=== PATIENT | female | born 1940 | race Caucasian/White ===

== ENCOUNTER → 2017-01-04 | Outpatient (CLI) | payer MEDICARE, MEDICAID ==
[~2017-01-04] MED LIST: ASPI325T33 PO; DITR15TA PO; HYDR-3533 PO; LYRI50CA PO; PAXI20TA PO; SIMV10TA PO; WELC625T2 PO; [UNRECOGNIZED DRUG - CODE] PO
[2017-01-04 12:17] LABS: AUTOMATED NEUTROPHIL # 4.2 TH/MM3 (1.8-7.7); BASOPHIL # 0.1 TH/MM3 (0-0.2); BASOPHIL % 1.2 % (0.0-2.0); EOSINOPHIL # 0.8 TH/MM3 (0-0.4); EOSINOPHIL % 9.9 % (0.0-4.0); HEMATOCRIT 44.2 % (35.0-46.0); HEMO FLAGS DIFF FINAL; LYMPH % 29.5 % (9.0-44.0); LYMPHOCYTE # 2.3 TH/MM3 (1.0-4.8); MEAN CELL VOLUME 89.6 FL (80.0-100.0); MEAN CORPUSCULAR HEMOGLOBIN 28.9 PG (27.0-34.0); MEAN CORPUSCULAR HGB CONC 32.3 % (32.0-36.0); NEUT % 52.4 % (16.0-70.0); PLATELET COUNT 318 TH/MM3 (150-450); RED BLOOD COUNT 4.93 MIL/MM3 (4.00-5.30); RED CELL DISTRIBUTION WIDTH 13.8 % (11.6-17.2)
[2017-01-04 12:35] LABS: ANION GAP 8 MEQ/L (5-15); AST (GOT) 39 U/L (15-37); BICARBONATE 21.8 MEQ/L (21.0-32.0); BLOOD UREA NITROGEN 15 MG/DL (7-18); CHLORIDE 110 MEQ/L (98-107); GLOMERULAR FILTRATION RATE 57 ML/MIN (>89); GLUCOSE,FASTING 162 MG/DL (74-99); POTASSIUM 4.2 MEQ/L (3.5-5.1); SODIUM (NA) 140 MEQ/L (136-145)
[2017-01-04 12:43] LABS: BACTERIA, URINE RARE /hpf; BLOOD, URINE NEG (NEG); COMMENT (UR) CULTURE INDICATED; CULTURE IF INDICATED CULTURE INDICATED; GLUCOSE,URINE NEG (NEG); KETONE, URINE NEG (NEG); MUCUS URINE FEW /lpf (OCC); NITRITE,URINE NEG (NEG); PH, URINE 5.5 (5.0-8.5); SQUAMOUS EPITHELIAL CELL URINE 5 /hpf (0-5); TRANSITIONAL EPI CELLS, URINE <1 /hpf; URINE COLOR YELLOW (YELLW/STRAW)
[2017-01-04 12:46] LABS: ALKALINE PHOSPHATASE 93 U/L (45-117); ALT (GPT) 35 U/L (10-53); HDL CHOLESTEROL 34.1 MG/DL (40.0-60.0); LDL CHOLESTEROL 132 MG/DL (0-99); TOTAL BILIRUBIN ADULT 0.2 MG/DL (0.2-1.0)
[2017-01-04 17:31] LABS: HEMOGLOBIN A1a 1.2 %; HEMOGLOBIN A1b 2.1 %; HEMOGLOBIN LA1C 2.3 %; HEMOGLOBIN P3 4.2 %
== END ==
LOC: CLAB 11:42
PROVIDERS: ATTEND Family Medicine
DX: E11.9 Type 2 diabetes mellitus without complications (principal); E78.5 Hyperlipidemia, unspecified; I10 Essential (primary) hypertension; R32 Unspecified urinary incontinence; E55.9 Vitamin D deficiency, unspecified; F41.9 Anxiety disorder, unspecified
CPT/HCPCS: 36415; 80053; 80061; 81001; 82306; 83036; 84443; 85025; 87086

== ENCOUNTER → 2017-11-14 | Outpatient (CLI) | payer MEDICARE, MEDICAID ==
[~2017-11-14] MED LIST changes: +COLE625 PO; -WELC625T2 PO
[2017-11-14 11:17] LABS: AUTOMATED NEUTROPHIL # 4.2 TH/MM3 (1.8-7.7); BASOPHIL # 0.1 TH/MM3 (0-0.2); BASOPHIL % 1.1 % (0.0-2.0); EOSINOPHIL # 0.4 TH/MM3 (0-0.4); EOSINOPHIL % 4.6 % (0.0-4.0); HEMATOCRIT 45.6 % (35.0-46.0); HEMOGLOBIN 14.7 GM/DL (11.6-15.3); LYMPH % 32.9 % (9.0-44.0); LYMPHOCYTE # 2.6 TH/MM3 (1.0-4.8); MEAN CELL VOLUME 91.8 FL (80.0-100.0); MEAN CORPUSCULAR HEMOGLOBIN 29.7 PG (27.0-34.0); MEAN CORPUSCULAR HGB CONC 32.3 % (32.0-36.0); MEAN PLATELET VOLUME 7.9 FL (7.0-11.0); MONO % 8.9 % (0.0-8.0); MONOCYTE # 0.7 TH/MM3 (0-0.9); NEUT % 52.5 % (16.0-70.0); PLATELET COUNT 378 TH/MM3 (150-450); RED BLOOD COUNT 4.96 MIL/MM3 (4.00-5.30); RED CELL DISTRIBUTION WIDTH 13.5 % (11.6-17.2)
[2017-11-14 11:40] LABS: ALBUMIN 3.4 GM/DL (3.4-5.0); ALT (GPT) 45 U/L (10-53); AST (GOT) 56 U/L (15-37); BICARBONATE 21.1 MEQ/L (21.0-32.0); BLOOD UREA NITROGEN 14 MG/DL (7-18); CHLORIDE 111 MEQ/L (98-107); CHOLESTEROL 146 MG/DL (120-200); CREATININE 1.11 MG/DL (0.50-1.00); GLOMERULAR FILTRATION RATE 48 ML/MIN (>89); GLUCOSE,FASTING 152 MG/DL (74-99); SODIUM (NA) 143 MEQ/L (136-145)
[2017-11-14 12:05] LABS: ALKALINE PHOSPHATASE 80 U/L (45-117); C-REACTIVE PROTEIN 0.54 MG/DL (0.00-0.30); CHOLESTEROL/ HDL RATIO 4.12 RATIO; HDL CHOLESTEROL 35.4 MG/DL (40.0-60.0); LDL CHOLESTEROL 76 MG/DL (0-99); TOTAL BILIRUBIN ADULT 0.3 MG/DL (0.2-1.0); TOTAL PROTEIN 7.5 GM/DL (6.4-8.2); TRIGLYCERIDES 172 MG/DL (42-150)
[2017-11-14 12:07] LABS: BILIRUBIN, URINE NEG (NEG); BLOOD, URINE NEG (NEG); GLUCOSE,URINE 1000 mg/dL (NEG); KETONE, URINE NEG (NEG); MUCUS URINE FEW /lpf (OCC); NITRITE,URINE NEG (NEG); PH, URINE 5.5 (5.0-8.5); RENAL EPITHELIAL CELLS <1 /hpf; SQUAMOUS EPITHELIAL CELL URINE 3 /hpf (0-5); URINE COLOR YELLOW (YELLW/STRAW); URINE LEUKOCYTE ESTERASE SMALL (NEG)
== END ==
LOC: CLAB 10:51
PROVIDERS: ATTEND Family Medicine
DX: E11.9 Type 2 diabetes mellitus without complications (principal); E78.5 Hyperlipidemia, unspecified; M25.562 Pain in left knee
CPT/HCPCS: 36415; 80053; 80061; 81001; 82043; 82550; 82607; 84443; 84550; 85025; 86140

== ENCOUNTER 2018-03-24 08:49 | Inpatient (IN) ==
[2018-03-24 10:05] LABS: Baso # (Auto) 0.1 th/mm3 (0.0-0.2); Eos # (Auto) 0.3 th/mm3 (0.0-0.4); Eos % (Auto) 3.6 % (0.0-4.0); Hematocrit 44.3 % (35.0-46.0); Hemoglobin 14.3 gm/dL (11.6-15.3); Lymph # (Auto) 2.3 th/mm3 (1.0-4.8); Lymph % (Auto) 23.5 % (9.0-44.0); Mean Corpuscular HGB Conc 32.3 % (32.0-36.0); Mean Corpuscular Hemoglobin 29.9 pg (27.0-34.0); Mean Corpuscular Volume 92.5 fL (80.0-100.0); Mean Platelet Volume 7.9 fL (7.0-11.0); Mono # (Auto) 0.9 th/mm3 (0.0-0.9); Mono % (Auto) 9.1 % (0.0-8.0); Neut # (Auto) 6.1 th/mm3 (1.8-7.7); Neut % (Auto) 62.8 % (16.0-70.0); Platelet Count 323 th/mm3 (150-450); Red Blood Count 4.79 mil/mm3 (4.00-5.30); Red Cell Distribution Width 14.2 % (11.6-17.2); White Blood Count 9.7 th/mm3 (4.0-11.0)
--- NOTE | 2018-03-24 10:10 | XR ---
EXAM DATE: 03/24/2018 9:58 AM EDT AGE/SEX: 78 years / Female INDICATIONS: Right sided chest pain. CLINICAL DATA: This is the patient's initial encounter. Patient reports that signs and symptoms have been present for 1 day and indicates a pain score of 9/10. MEDICAL/SURGICAL HISTORY: Cardiovascular disease. Bilat Breast Ca, Uterine Ca CABG. Appendec umang, Tonsillectomy, Gallbladder, Bilat Mastectomy, Salivary Gland, Ear Drum Graft COMPARISON: [facility], XR CHEST PA AND LAT, 09/25/2016. . FINDINGS: Sternal wires from previous bypass noted. Surgical clips right axilla. Lungs clear. The heart and pul monary vascularity are normal. . The portion of the bony skeleton visualized is unremarkable. . CONCLUSION: Negative chest. History of bypass. Electronically signed by: Vick Lee MD 03/24/2018 10:09 AM EDT
[2018-03-24 10:17] LABS: Albumin 2.9 g/dL (3.4-5.0); Anion Gap 11 meq/L (5-15); Aspartate Aminotransferase 29 U/L (15-37); Blood Urea Nitrogen 21 mg/dL (7-18); Calcium 8.6 mg/dL (8.5-10.1); Carbon Dioxide 19.6 meq/L (21.0-32.0); Chloride 110 meq/L (98-107); Glomerular Filtration Rate 52 mL/min (>89); Glucose,Random 129 mg/dL (74-106); Potassium 4.3 meq/L (3.5-5.1); Sodium 141 meq/L (136-145)
[2018-03-24 10:18] LABS: Alanine Aminotransferase 21 U/L (10-53)
[2018-03-24 10:22] LABS: Alkaline Phosphatase 70 U/L (45-117); Total Protein 6.9 g/dL (6.4-8.2)
[2018-03-24 10:30] LABS: Troponin I 0.82 ng/mL (0.02-0.05)
[2018-03-24] MEDS ORDERED: Nitroglycerin Drip Premix 50 MG/250 ML BOTTLE IV.CONT PRN (10:50)
--- NOTE | 2018-03-24 11:00 | ED ---
HPI General Chief complaint: Neck Pain/Injury Stated complaint: Shoulder pain Time Seen by Provider: 03/24/18 08:59 History of Present Illness HPI narrative: Patient is a 78-year-old female presents emergency department for evaluation of chest pain on the right side for the past 2 weeks. Patient states she presented this morning he is gotten worse. She states is typically worse when she lies down flat, radiates to her right neck, no radiation to back , no altered mental status, no headache. States the pain is intermittent, sometimes severe, not associate with any exertion. Associated signs symptoms in context as above. Related Data Home Medications Medication Instructions Recorded Confirmed Toviaz 8 mg PO DAILY 03/24/18 03/24/18 losartan 25 mg PO DAILY 03/24/18 03/24/18 paroxetine HCl 10 mg PO DAILY 03/24/18 03/24/18 simvastatin 40 mg PO QPM 03/24/18 03/24/18 Allergies Allergy/AdvReac Type Severity Reaction Status Date / Time No Known Allergies Allergy Unverified 03/24/18 09:06 Review of Systems ROS: all other systems reviewed are negative [facility] Medical History Medical History Breast cancer (Acute) Carotid artery disease (Acute) Diabetes (Acute) History of hysterectomy (Acute) Hyperlipemia (Acute) Hypertension (Acute) Uterine cancer (Acute) Social History Social History Substance History: No History of Abuse Second Hand Smoke Exposure: No Smoking Status: Former smoker Tobacco Type: Cigarettes How Often Do You Have a Drink Containing Alcohol: Never Recent Travel in [facility] within the Last 8 Weeks: No Recent Out of Country Travel within the Last 8 Weeks: No Immunization History Tetanus Immunization: >5 Years Hx Influenza Vaccine This Season: Yes Exam Narrative Exam Narrative: GENERAL: Well-developed well-nourished pleasant female in no obvious distress. she sleeping soundly on my initial encounter but aroused easily to voice. SKIN: Focused skin assessment warm/dry. HEAD: Atraumatic. Normocephalic. EYES: Pupils equal and round. No scleral icterus. No injection or drainage. ENT: No nasal bleeding or discharge. Mucous membranes pink and moist. NECK: Trachea midline. No JVD. CARDIOVASCULAR: Regular rate and rhythm. No murmur appreciated. No carotid bruits, no murmurs gallops or rubs, 2+ bilateral equal pulses in all 4 extremities. RESPIRATORY: No accessory muscle use. Clear to auscultation. Breath sounds equal bilaterally. GASTROINTESTINAL: Abdomen soft, non-tender, nondistended. Hepatic and splenic margins not palpable. MUSCULOSKELETAL: No obvious deformities. No clubbing. No cyanosis. No edema. NEUROLOGICAL: Awake and alert. No obvious cranial nerve deficits. Motor grossly within normal limits. Normal speech. PSYCHIATRIC: Appropriate mood and affect; insight and judgment normal. Course Initial Documented Vital Signs Temperature 97.7 F 03/24/18 08:59 Pulse Rate 95 H 03/24/18 08:59 Respiratory Rate 18 03/24/18 08:59 Blood Pressure 128/60 03/24/18 08:59 Pulse Oximetry 98 03/24/18 08:59 Last Documented Vital Signs Temperature 97.7 F 03/24/18 08:59 Pulse Rate 99 H 03/24/18 19:07 Respiratory Rate 16 03/24/18 19:07 Blood Pressure 127/58 L 03/24/18 19:07 Pulse Oximetry 96 03/24/18 20:55 Medical Decision Making MDM Narrative Medical decision making narrative: Patient room to the emergency department, EKG does show biphasic T-wave pattern in V3, minimal elevation in V2 but not consistent with asked active STEMI. Did consider alternative diagnoses such as carotid dissection but without any bruits and very asymptomatic patient I think that this is not the cause of her symptoms. patient appears very comfortable, she is very atypical for active chest pain. Comparison to previous EKG shows that these ST segment changes are new. Troponin returned 0.8, EKG was repeated which did show significant more elevation in V3 however still did not meet active STEMI criteria. However concerning the patient was discussed with Dr. Gibson is on-call for Dr. Quintana's group, he is come in short order about 1050 to evaluate the patient. He agrees the patient does not meet acute catheterization criteria. He recommends heparinization as well as nitroglycerin drip and this is been ordered. The patient was discussed with Dr. Pelaez for admission. She remained comfortable in the ER, EKG was repeated again and still showed the same findings and again was reviewed by Dr. Gibson. Medical Screen Exam Complete: Yes Emergency Medical Condition: Yes Lab Data Result diagrams: 03/24/18 09:30 03/24/18 09:30 Lab Results 03/24/18 03/24/18 03/24/18 Range/Units 09:30 09:30 09:30 WBC 9.7 (4.0-11.0) th/mm3 RBC 4.79 (4.00-5.30) mil/mm3 Hgb 14.3 (11.6-15.3) gm/dL Hct 44.3 (35.0-46.0) % MCV 92.5 (80.0-100.0) fL MCH 29.9 (27.0-34.0) pg MCHC 32.3 (32.0-36.0) % RDW 14.2 (11.6-17.2) % Plt Count 323 (150-450) th/mm3 MPV 7.9 (7.0-11.0) fL Neut % (Auto) 62.8 (16.0-70.0) % Lymph % (Auto) 23.5 (9.0-44.0) % Hernando % (Auto) 9.1 H (0.0-8.0) % Eos % (Auto) 3.6 (0.0-4.0) % Baso % (Auto) 1.0 (0.0-2.0) % Neut # (Auto) 6.1 (1.8-7.7) th/mm3 Lymph # (Auto) 2.3 (1.0-4.8) th/mm3 Hernando # (Auto) 0.9 (0.0-0.9) th/mm3 Eos # (Auto) 0.3 (0.0-0.4) th/mm3 Baso # (Auto) 0.1 (0.0-0.2) th/mm3 WBC Differential . Differential Comment Auto diff final PT (9.8-11.6) sec INR Ratio APTT (24.3-30.1) sec Sodium 141 (136-145) meq/L Potassium 4.3 (3.5-5.1) meq/L Chloride 110 H (98-107) meq/L Carbon Dioxide 19.6 L (21.0-32.0) meq/L Anion Gap 11 (5-15) meq/L BUN 21 H (7-18) mg/dL Creatinine 1.02 H (0.50-1.00) mg/dL Estimated GFR 52 L (>89) mL/min Random Glucose 129 H (74-106) mg/dL Calcium 8.6 (8.5-10.1) mg/dL Total Bilirubin 0.4 (0.2-1.0) mg/dL AST 29 (15-37) U/L ALT 21 (10-53) U/L Alkaline Phosphatase 70 (45-117) U/L Troponin I 0.82 H* (0.02-0.05) ng/mL Total Protein 6.9 (6.4-8.2) g/dL Albumin 2.9 L (3.4-5.0) g/dL Triglycerides 134 (42-150) mg/dL Cholesterol 124 (120-200) mg/dL LDL Cholesterol, Calc 65 (0-99) mg/dL HDL Cholesterol 32.3 L (40.0-60.0) mg/dL Cholesterol/HDL Ratio 3.83 Ratio 03/24/18 03/24/18 03/24/18 Range/Units 10:30 10:30 15:15 WBC (4.0-11.0) th/mm3 RBC (4.00-5.30) mil/mm3 Hgb (11.6-15.3) gm/dL Hct (35.0-46.0) % MCV (80.0-100.0) fL MCH (27.0-34.0) pg MCHC (32.0-36.0) % RDW (11.6-17.2) % Plt Count (150-450) th/mm3 MPV (7.0-11.0) fL Neut % (Auto) (16.0-70.0) % Lymph % (Auto) (9.0-44.0) % Hernando % (Auto) (0.0-8.0) % Eos % (Auto) (0.0-4.0) % Baso % (Auto) (0.0-2.0) % Neut # (Auto) (1.8-7.7) th/mm3 Lymph # (Auto) (1.0-4.8) th/mm3 Hernando # (Auto) (0.0-0.9) th/mm3 Eos # (Auto) (0.0-0.4) th/mm3 Baso # (Auto) (0.0-0.2) th/mm3 WBC Differential Differential Comment PT 10.8 (9.8-11.6) sec INR 1.1 Ratio APTT 26.4 Cancelled (24.3-30.1) sec Sodium (136-145) meq/L Potassium (3.5-5.1) meq/L Chloride (98-107) meq/L Carbon Dioxide (21.0-32.0) meq/L Anion Gap (5-15) meq/L BUN (7-18) mg/dL Creatinine (0.50-1.00) mg/dL Estimated GFR (>89) mL/min Random Glucose (74-106) mg/dL Calcium (8.5-10.1) mg/dL Total Bilirubin (0.2-1.0) mg/dL AST (15-37) U/L ALT (10-53) U/L Alkaline Phosphatase (45-117) U/L Troponin I 1.13 H* D (0.02-0.05) ng/mL Total Protein (6.4-8.2) g/dL Albumin (3.4-5.0) g/dL Triglycerides (42-150) mg/dL Cholesterol (120-200) mg/dL LDL Cholesterol, Calc (0-99) mg/dL HDL Cholesterol (40.0-60.0) mg/dL Cholesterol/HDL Ratio Ratio 09/23/18 Range/Units 15:15 WBC (4.0-11.0) th/mm3 RBC (4.00-5.30) mil/mm3 Hgb (11.6-15.3) gm/dL Hct (35.0-46.0) % MCV (80.0-100.0) fL MCH (27.0-34.0) pg MCHC (32.0-36.0) % RDW (11.6-17.2) % Plt Count (150-450) th/mm3 MPV (7.0-11.0) fL Neut % (Auto) (16.0-70.0) % Lymph % (Auto) (9.0-44.0) % Hernando % (Auto) (0.0-8.0) % Eos % (Auto) (0.0-4.0) % Baso % (Auto) (0.0-2.0) % Neut # (Auto) (1.8-7.7) th/mm3 Lymph # (Auto) (1.0-4.8) th/mm3 Hernando # (Auto) (0.0-0.9) th/mm3 Eos # (Auto) (0.0-0.4) th/mm3 Baso # (Auto) (0.0-0.2) th/mm3 WBC Differential Differential Comment PT (9.8-11.6) sec INR Ratio APTT 55.5 H D (24.3-30.1) sec Sodium (136-145) meq/L Potassium (3.5-5.1) meq/L Chloride (98-107) meq/L Carbon Dioxide (21.0-32.0) meq/L Anion Gap (5-15) meq/L BUN (7-18) mg/dL Creatinine (0.50-1.00) mg/dL Estimated GFR (>89) mL/min Random Glucose (74-106) mg/dL Calcium (8.5-10.1) mg/dL Total Bilirubin (0.2-1.0) mg/dL AST (15-37) U/L ALT (10-53) U/L Alkaline Phosphatase (45-117) U/L Troponin I (0.02-0.05) ng/mL Total Protein (6.4-8.2) g/dL Albumin (3.4-5.0) g/dL Triglycerides (42-150) mg/dL Cholesterol (120-200) mg/dL LDL Cholesterol, Calc (0-99) mg/dL HDL Cholesterol (40.0-60.0) mg/dL Cholesterol/HDL Ratio Ratio Imaging Data Radiologist's impression: Chest X-Ray 03/24/18 09:27 CONCLUSION: Negative chest. History of bypass. Discharge Plan Discharge Disposition Patient Disposition: 30 Still Patient Discharge Condition Condition: Fair Discharge Details Diagnosis: Acute non-ST elevation myocardial infarction (NSTEMI) Physicians Team ED Provider: Mario Escoto Primary Care Provider: Duong Noriega III Attending Provider: Edgardo Bond Other Providers: Anish Gibson ; [facility],Insurance Discharge Interventions Interventions: ED Discharge Assessment Last Done: 03/24/18 20:25 Vital Signs Last Done: 03/24/18 09:06 Status ED Status: Left Department Discharge Information Discharge Date/Time: 03/24/18 20:25
[2018-03-24 11:23] LABS: Activated Partial Thrombo Time 26.4 sec (24.3-30.1); INR 1.1 Ratio; Prothrombin Time 10.8 sec (9.8-11.6)
[2018-03-24] MEDS ORDERED: Heparin 10,000 UNITS/10 ML Vial (for IV use) IV.PUSH STA (11:27)
[2018-03-24 11:45] LABS: Chol/HDL Ratio 3.83 Ratio; HDL Cholesterol 32.3 mg/dL (40.0-60.0)
[2018-03-24] MEDS: Heparin Drip 25,000 UNIT/250 ML BAG IV.CONT PRN (12:31)
--- NOTE | 2018-03-24 13:04 | P.HP ---
History of Present Illness Primary Care Physician: Duong Noriega III, MD History of Present Illness: 78-year-old white female being admitted with chest pain. Patient was in her usual state of health until about a month ago she began experiencing right-sided chest pain and shoulder pain. Says that is intermittent comes and goes. However it progressed over the last 24 hours to the max intensity thus prompting her to come to the emergency department. She is not able to clearly identify any exacerbating factors apart from possible exertion particularly activities involving her right arm. Reports that she woke up this morning with pain dyspnea and diaphoresis and some nausea. Called 911. In the emergency department chest x-ray and blood work were negative except for an elevated troponin at 0.8. EKG did show some ST segment changes. Cardiology was consulted and are considering a heart catheterization. Patient reports being compliant with her daily aspirin and statin. Family history significant for the patient's mother having a "blood clot in her neck" and dying from it in her late 30s. Inpatient Certification: I certify that the inpatient services were ordered in accordance with Medicare regulations governing the order. This includes certification that hospital inpatient services are reasonable and necessary and in the case of services not specified as inpatient-only under 42 CFR 419.22(n), that they are appropriately provided as inpatient services in accordance to with the 2-midnight benchmark under 43 CFR 412.3(e) Estimated Total Length of Stay (Days): 2 Plans for Post Hospital Care: Home Review of Systems All other systems reviewed negative except as stated in HPI PMFSH - History History Provided By: Patient - Medical History Medical History: Medical History (Last Updated 03/24/18 @ 13:01 by Edgardo Bond MD) Breast cancer Carotid artery disease Diabetes History of hysterectomy Hyperlipemia Hypertension Uterine cancer - Surgical History Surgical History: Surgical History (Last Reviewed 03/24/18 @ 13:02 by Edgardo Bond MD) History of mastectomy Hx of CABG Hx of cholecystectomy - Social History I have reviewed the patient's Social History: Yes - Tobacco History Second Hand Smoke Exposure: No Tobacco Use In Past 30 Days: No Smoking Status: Former smoker Tobacco Type: Cigarettes - Alcohol History How Often Do You Have a Drink Containing Alcohol: Never - Substance Use History Substance History: No History of Abuse - Travel History Recent Travel in the [place] Within the Last 8 Weeks: No Recent Travel Out of the Country Within the Last 8 Weeks: No - Immunization History Tetanus Immunization: >5 Years Hx Influenza Vaccine This Season: Yes Medications and Allergies Active Medications: Active Medications Aspirin (Aspirin) 325 mg PO DAILY BRANDY Nitroglycerin/Dextrose (Nitroglycerin Drip Premix) 50 mg in 250 mls @ 0 mls/hr IV.CONT TITRATE PRN; Protocol PRN Reason: Per Protocol Last Titration: 03/24/18 11:36 Dose: 10 mcg/min, 3 mls/hr Heparin Sodium/Dextrose (Heparin/D5w 25,000 U/250 Ml) 25,000 unit in 250 mls @ 0 mls/hr IV.CONT TITRATE PRN; Protocol PRN Reason: Per Protocol Last Admin: 03/24/18 12:31 Dose: 1,000 units/hr, 10 mls/hr Non-Formulary Medication (Toviaz) 8 mg PO DAILY BRANDY Non-Formulary Medication (Paroxetine Hcl [Paroxetine Hcl]) 10 mg PO DAILY BRANDY Sodium Chloride (Ns Flush) 2 ml IV.FLUSH BID BRANDY Sodium Chloride (Ns Flush) 2 ml IV.FLUSH UNSCH PRN PRN Reason: FLUSH AFTER USING IV ACCESS Allergies Allergy/AdvReac Type Severity Reaction Status Date / Time No Known Allergies Allergy Unverified 03/24/18 09:06 Home Medications Medication Instructions Recorded Confirmed Type Toviaz 8 mg PO DAILY 03/24/18 03/24/18 History losartan 25 mg PO DAILY 03/24/18 03/24/18 History paroxetine HCl 10 mg PO DAILY 03/24/18 03/24/18 History simvastatin 40 mg PO QPM 03/24/18 03/24/18 History Exam Vital signs: Vital Signs 03/24/18 08:59 03/24/18 09:06 03/24/18 09:30 Temperature 97.7 F Pulse Rate 95 H 97 H Respiratory Rate 18 19 Blood Pressure 128/60 128/60 Pulse Oximetry 98 97 96 03/24/18 11:05 03/24/18 12:35 Temperature Pulse Rate 103 H Respiratory Rate 15 Blood Pressure 158/77 H Pulse Oximetry 97 97 Intake & Output 03/23/18 03/24/18 03/24/18 18:59 06:59 18:59 Weight 81.647 kg Narrative: VS: afebrile GENERAL: Lying in bed, no acute distress SKIN: Warm and dry. EYES: No scleral icterus. No injection or drainage. ENT: No nasal bleeding or discharge. CARDIOVASCULAR: Regular rate and rhythm. no murmurs RESPIRATORY: No accessory muscle use. Clear to auscultation. Breath sounds equal bilaterally. GASTROINTESTINAL: Abdomen soft, non-tender, nondistended. Extremities: No clubbing, cyanosis. Moderate left lower extremity edema which the patient attributes to her chronic lymphedema. MUSCULOSKELETAL: grossly intact ROM with 5/5 strength in upper and lower extremities proximally; adequate muscle bulk and tone for age and habitus. Has pain upon right arm empty beer can test the patient clarifies this is different from the pain she has been experiencing at home NEUROLOGICAL: Awake and alert. No obvious cranial nerve deficits. No facial droop nor slurred speech noted. PSYCHIATRIC: Appropriate mood and affect; insight and judgment normal. Results - Labs CBC & Chem 7: 03/25/18 05:17 03/24/18 09:30 Labs: Laboratory Results - last 24 hr 03/24/18 03/24/18 03/24/18 09:30 09:30 09:30 WBC 9.7 RBC 4.79 Hgb 14.3 Hct 44.3 MCV 92.5 MCH 29.9 MCHC 32.3 RDW 14.2 Plt Count 323 MPV 7.9 Neut % (Auto) 62.8 Lymph % (Auto) 23.5 Maries % (Auto) 9.1 H Eos % (Auto) 3.6 Baso % (Auto) 1.0 Neut # (Auto) 6.1 Lymph # (Auto) 2.3 Maries # (Auto) 0.9 Eos # (Auto) 0.3 Baso # (Auto) 0.1 WBC Differential . Differential Comment Auto diff final PT INR APTT Sodium 141 Potassium 4.3 Chloride 110 H Carbon Dioxide 19.6 L Anion Gap 11 BUN 21 H Creatinine 1.02 H Estimated GFR 52 L Random Glucose 129 H Calcium 8.6 Total Bilirubin 0.4 AST 29 ALT 21 Alkaline Phosphatase 70 Troponin I 0.82 H* Total Protein 6.9 Albumin 2.9 L Triglycerides 134 Cholesterol 124 LDL Cholesterol, Calc 65 HDL Cholesterol 32.3 L Cholesterol/HDL Ratio 3.83 03/24/18 03/24/18 10:30 10:30 WBC RBC Hgb Hct MCV MCH MCHC RDW Plt Count MPV Neut % (Auto) Lymph % (Auto) Maries % (Auto) Eos % (Auto) Baso % (Auto) Neut # (Auto) Lymph # (Auto) Maries # (Auto) Eos # (Auto) Baso # (Auto) WBC Differential Differential Comment PT 10.8 INR 1.1 APTT 26.4 Cancelled Sodium Potassium Chloride Carbon Dioxide Anion Gap BUN Creatinine Estimated GFR Random Glucose Calcium Total Bilirubin AST ALT Alkaline Phosphatase Troponin I Total Protein Albumin Triglycerides Cholesterol LDL Cholesterol, Calc HDL Cholesterol Cholesterol/HDL Ratio - Imaging Impressions Chest X-Ray 03/24/18 09:27 CONCLUSION: Negative chest. History of bypass. Caprini VTE Risk Assessment Caprini VTE Risk Assessment: Moderate/High Risk (score >= 2) Caprini Risk Assessment Model: Point Value = 1 Point Value = 2 Point Value = 3 Point Value = 5 Age 41-60 Minor surgery BMI > 25 kg/m2 Swollen legs Varicose veins or History of unexplained or recurrent spontaneous Oral contraceptives or hormone replacement Sepsis (< 1 month) Serious lung disease, including pneumonia (< 1 month) Abnormal pulmonary function Acute myocardial infarction Congestive heart failure (< 1 month) History of inflammatory bowel disease Medical patient at bed rest Age 61-74 Arthroscopic surgery Major open surgery (> 45 min) Laparoscopic surgery (> 45 min) Malignancy Confined to bed (> 72 hours) Immobilizing plaster cast Central venous access Age >= 75 History of VTE Family history of VTE Factor V Leiden Prothrombin [id number] Lupus anticoagulant Anticardiolipin antibodies Elevated serum homocysteine Heparin-induced thrombocytopenia Other congenital or acquired thrombophilia Stroke (< 1 month) Elective arthroplasty Hip, pelvis, or leg fracture Acute spinal cord injury (< 1 month) Prophylaxis Regimen: Total Risk Factor Score Risk Level Prophylaxis Regimen 0-1 Low Early ambulation 2 Moderate Order ONE of the following: *Sequential Compression Device (SCD) *Heparin 5000 units SQ BID 3-4 Higher Order ONE of the following medications: *Heparin 5000 units SQ TID *Enoxaparin/Lovenox 40 mg SQ daily (WT < 150 kg, CrCl > 30 mL/min) *Enoxaparin/Lovenox 30 mg SQ daily (WT < 150 kg, CrCl > 10-29 mL/min) *Enoxaparin/Lovenox 30 mg SQ BID (WT < 150 kg, CrCl > 30 mL/min) AND/OR *Sequential Compression Device (SCD) 5 or more Highest Order ONE of the following medications: *Heparin 5000 units SQ TID (Preferred with Epidurals) *Enoxaparin/Lovenox 40 mg SQ daily (WT < 150 kg, CrCl > 30 mL/min) *Enoxaparin/Lovenox 30 mg SQ daily (WT < 150 kg, CrCl > 10-29 mL/min) *Enoxaparin/Lovenox 30 mg SQ BID (WT < 150 kg, CrCl > 30 mL/min) AND *Sequential Compression Device (SCD) Assessment and Plan - Plan 78-year-old white female being admitted for chest pain with possible N STEMI Chest pain possible NSTEMI vs STEMI, Starting heparin drip, daily aspirin, will start Lipitor tonight, cardiology following closely -Telemetry and trending troponins, ordering echocardiogram Hypertension Resume home losartan when stable Chronic mood/anxiety Can paroxetine Chronic incontinence Continue home Toviaz On heparin drip
--- NOTE | 2018-03-24 21:47 | MB ---
cc: Anish Gibson DO DATE: 03/24/2018 REASON FOR CONSULTATION: NSTEMI, abnormal EKG. HISTORY OF PRESENT ILLNESS: Jayleen Wynn is a pleasant 78-year-old female who sees my partner, Dr. Quintana in the office and presented to [facility] due to chest pain. Over the past month, she has had off and on right-sided chest pain and shoulder pain. It seems to be intermittent and comes and goes, somewhat associated with activity, but not always. This appeared to get progressively worse over the past 24 hours with pain at a 10/10. When she woke up this morning, she was mildly diaphoretic and a little short of breath with some nausea and so she called 911. On arrival, an EKG was done with some biphasic T waves noted anterolaterally and some mild ST elevation. I was called emergently to see the patient and on my evaluation, she was having some slight pain on the right side at that time. I asked that she be started on heparin and nitroglycerin drip and we repeated the EKG. EKG was repeated and showed minimal ST elevation anteriorly. I asked that a third read EKG will be repeated in 15 to 20 minutes, as the patient appeared relatively stable and was starting to feel better. On reevaluation, the patient was actually sleeping at that time after her EKG and repeat EKG showed no significant ST elevations or acute ST changes. I did wake her up and she said that she was feeling much better without any pain at the time. PAST MEDICAL HISTORY: 1. Coronary artery disease. 2. Breast cancer. 3. Carotid artery disease. 4. Diabetes. 5. Hyperlipidemia. 6. Hypertension. 7. Uterine cancer. PAST SURGICAL HISTORY: 1. Right carotid endarterectomy with bovine patch angioplasty (01/06/2011). 2. Cardiac catheterization (01/29/2003). Left main moderately diseased. LAD 70% proximal, gives rise to a small first diagonal with 80% disease. Left circumflex has a bifurcation lesion involving the ostium of the obtuse marginal of 60%. RCA minimal disease. DIGGS to LAD is patent and has multiple unligated branches. SVG to OM is widely patent. SVG to diagonal is widely patent. 3. Coronary artery bypass grafting x 3 with DIGGS to LAD, SVG to OM, SVG to diagonal. 4. History of mastectomy. 5. History of hysterectomy. 6. History of cholecystectomy. ALLERGIES: NO KNOWN DRUG ALLERGIES. MEDICATIONS: 1. Paroxetine 10 mg daily. 2. Losartan 25 mg daily. 3. Toviaz 8 mg daily. 4. Zocor 40 mg every night. FAMILY HISTORY: Denies sudden cardiac within the family. SOCIAL HISTORY: She is a former smoker. Denies alcohol or drug abuse. REVIEW OF SYSTEMS: Fourteen systems were reviewed including osteopathic. Pertinent positives and negatives above, otherwise negative. PHYSICAL EXAMINATION: VITAL SIGNS: Temperature 97.7, heart rate 97, blood pressure 128/60, respirations 19, pulse oximetry 97% on room air. GENERAL: The patient appears well, in no acute distress, alert, awake and oriented x 3. HEENT: Extraocular muscles intact. Mucous membranes moist. NECK: Supple. No JVD at 45 degrees. No carotid bruits heard bilaterally. Carotid upstrokes brisk in nature. HEART: Regular rate and rhythm. Positive first and second heart sounds with a 1/6 crescendo decrescendo murmur to the right sternal border. LUNGS: Clear to auscultation bilaterally. No wheezes, rales or rhonchi. ABDOMEN: Soft, nontender, nondistended, no organomegaly noted. EXTREMITIES: Show trace to 1+ pitting edema, which appears chronic for the patient. Femoral and distal pulses intact bilaterally. NEUROLOGIC: No focal deficits. SKIN: Warm, dry and intact. OSTEOPATHIC: No kyphoscoliosis, lordosis or paraspinal tender points. LABORATORY DATA: Hemoglobin 14.3, hematocrit 44.3, platelets 323. Potassium 4.3, BUN 21, creatinine 1.02, troponin 0.82 increasing to 1.13. Electrocardiogram (03/24/2018 at 1105). Sinus tachycardia, possible left atrial enlargement, nonspecific ST-T wave changes anteriorly. IMPRESSIONS: 1. Non-ST elevation myocardial infarction. 2. Atypical chest pain, but concerning for coronary insufficiency. 3. Hypertension. 4. History of coronary artery bypass graft x 3 as above. 5. Hypertension. 6. Hyperlipidemia. 7. Diabetes mellitus. 8. Peripheral vascular disease with previous carotid endarterectomy as above. RECOMMENDATIONS: 1. Ms. Wynn presented with chest pain, which has been coming on and off over the past month, but got significantly worse this morning. 2. Ultimately, her chest pain was concerning for ischemia. An EKG showed possible dynamic changes, which have since gotten better after being placed on heparin and nitroglycerin. 3. She has been reevaluated and no longer having pain and ultimately feels better at this time. 4. She will be watched overnight, as she is currently hemodynamically and electrically stable with no current chest pain. If at any time overnight this changes, she may need to go emergently. 5. She will be kept n.p.o. with plan for cardiac catheterization tomorrow. 6. We will check a 2D echo to look at her overall left ventricular function, cardiac structure and possible valvulopathies. 7. We will continue her on a nitroglycerin drip and titrate this for chest pain. 8. Further recommendations will be made after coronary visualization. Thank you for allowing me to see Jayleen Wynn. If there are any questions, please do not hesitate to call. DO PRINCESS Pickett/amari/mariam , 05:47 PM , 06:01 PM
[2018-03-25 06:47] LABS: Hematocrit 42.2 % (35.0-46.0); Hemoglobin 13.8 gm/dL (11.6-15.3); Mean Corpuscular HGB Conc 32.6 % (32.0-36.0); Mean Corpuscular Hemoglobin 30.2 pg (27.0-34.0); Mean Corpuscular Volume 92.7 fL (80.0-100.0); Mean Platelet Volume 8.4 fL (7.0-11.0); Platelet Count 280 th/mm3 (150-450); Red Blood Count 4.56 mil/mm3 (4.00-5.30); Red Cell Distribution Width 14.2 % (11.6-17.2); White Blood Count 7.4 th/mm3 (4.0-11.0)
--- NOTE | 2018-03-25 08:27 | P.PNCA ---
Subjective Interval history: No further chest or right shoulder pain. No dyspnea, dizziness, palpitations. Medications and Allergies Active Medications: Active Medications Aspirin (Aspirin) 325 mg PO DAILY [facility] Last Admin: 03/25/18 08:19 Dose: 325 mg Atorvastatin Calcium (Lipitor) 40 mg PO HS [facility] Last Admin: 03/24/18 21:18 Dose: 40 mg Nitroglycerin/Dextrose (Nitroglycerin Drip Premix) 50 mg in 250 mls @ 0 mls/hr IV.CONT TITRATE PRN; Protocol PRN Reason: Per Protocol Last Titration: 03/24/18 16:17 Dose: 15 mcg/min, 4.5 mls/hr Heparin Sodium/Dextrose (Heparin/D5w 25,000 U/250 Ml) 25,000 unit in 250 mls @ 0 mls/hr IV.CONT TITRATE PRN; Protocol PRN Reason: Per Protocol Last Titration: 03/24/18 22:45 Dose: 1,000 units/hr, 10 mls/hr Paroxetine HCl (Paxil) 10 mg PO DAILY [facility] Last Admin: 03/25/18 08:19 Dose: 10 mg Pom: (Toviaz 8 Mg) 0 each PO DAILY [facility] Sodium Chloride (Ns Flush) 2 ml IV.FLUSH BID [facility] Last Admin: 03/25/18 08:20 Dose: 2 ml Sodium Chloride (Ns Flush) 2 ml IV.FLUSH UNSCH PRN PRN Reason: FLUSH AFTER USING IV ACCESS Allergies Allergy/AdvReac Type Severity Reaction Status Date / Time No Known Allergies Allergy Unverified 03/24/18 09:06 Home Medications Medication Instructions Recorded Confirmed Type Toviaz 8 mg PO DAILY 03/24/18 03/24/18 History losartan 25 mg PO DAILY 03/24/18 03/24/18 History paroxetine HCl 10 mg PO DAILY 03/24/18 03/24/18 History simvastatin 40 mg PO QPM 03/24/18 03/24/18 History Physical Exam Vital signs: Vital Signs 03/24/18 08:59 03/24/18 09:06 03/24/18 09:30 Temperature 97.7 F Pulse Rate 95 H 97 H Respiratory Rate 18 19 Blood Pressure 128/60 128/60 Pulse Oximetry 98 97 96 03/24/18 11:05 03/24/18 12:35 03/24/18 13:25 Temperature Pulse Rate 103 H 96 H Respiratory Rate 15 19 Blood Pressure 158/77 H 151/77 H Pulse Oximetry 97 97 95 03/24/18 16:20 03/24/18 17:40 03/24/18 19:07 Temperature Pulse Rate 93 H 99 H 99 H Respiratory Rate 17 18 16 Blood Pressure 135/62 127/58 L Pulse Oximetry 96 97 03/24/18 20:00 03/24/18 20:55 03/24/18 21:00 Temperature 98.4 F Pulse Rate 99 H 97 H Respiratory Rate 18 Blood Pressure 128/59 L Pulse Oximetry 97 96 03/24/18 22:00 03/24/18 23:00 03/24/18 23:38 Temperature 98.1 F Pulse Rate 98 H 96 H 92 H Respiratory Rate 18 Blood Pressure 127/66 Pulse Oximetry 96 03/25/18 00:00 03/25/18 01:00 03/25/18 02:00 Temperature Pulse Rate 92 H 93 H 91 H Respiratory Rate Blood Pressure Pulse Oximetry 03/25/18 03:00 03/25/18 04:00 03/25/18 05:00 Temperature 98.2 F Pulse Rate 84 75 80 Respiratory Rate 18 Blood Pressure 128/74 Pulse Oximetry 96 03/25/18 06:00 03/25/18 07:00 Temperature Pulse Rate 82 95 H Respiratory Rate Blood Pressure Pulse Oximetry Intake & Output 03/24/18 03/25/18 03/25/18 18:59 06:59 18:59 Intake Total 480 / 480 Output Total 900 / 900 Balance -420 / -420 Weight 81.647 kg 81.5 kg Intake: Oral 480 / 480 Output: Urine 900 / 900 Other: Date of Last Bowel Movement 03/25/18 - Constitutional no acute distress - Routine Neck Exam Absent: JVD - Routine Respiratory Exam Present: CTA bilaterally - Routine Cardiovascular Exam Present: RRR, S1, S2, murmur. Absent: gallop Comments: II/ GIANNA RUSB with normal S2 - Routine Abdominal Exam Present: soft, normoactive bowel sounds. Absent: tenderness, organomegaly - Routine Extremities Exam Absent: cyanosis, clubbing, edema Results 03/25/18 05:17 03/24/18 09:30 Cardiac Enzymes 03/24/18 03/24/18 03/24/18 Range/Units 09:30 15:15 21:58 AST 29 (15-37) U/L Troponin I 0.82 H* 1.13 H* D 1.73 H* D (0.02-0.05) ng/mL Coagulation 18 03/24/18 03/24/18 Range/Units 10:30 10:30 15:15 PT 10.8 (9.8-11.6) sec APTT 26.4 Cancelled 55.5 H D (24.3-30.1) sec 18 03/25/18 Range/Units 21:58 05:17 PT (9.8-11.6) sec APTT 51.3 H 50.4 H (24.3-30.1) sec Lipids 03/24/18 Range/Units 09:30 Triglycerides 134 (42-150) mg/dL Cholesterol 124 (120-200) mg/dL HDL Cholesterol 32.3 L (40.0-60.0) mg/dL Cholesterol/HDL Ratio 3.83 Ratio CBC 03/24/18 03/25/18 Range/Units 09:30 05:17 WBC 9.7 7.4 (4.0-11.0) th/mm3 RBC 4.79 4.56 (4.00-5.30) mil/mm3 Hgb 14.3 13.8 (11.6-15.3) gm/dL Hct 44.3 42.2 (35.0-46.0) % Plt Count 323 280 (150-450) th/mm3 Neut # (Auto) 6.1 (1.8-7.7) th/mm3 Lymph # (Auto) 2.3 (1.0-4.8) th/mm3 [place] # (Auto) 0.9 (0.0-0.9) th/mm3 Eos # (Auto) 0.3 (0.0-0.4) th/mm3 Baso # (Auto) 0.1 (0.0-0.2) th/mm3 Comprehensive Metabolic Panel 03/24/18 Range/Units 09:30 Sodium 141 (136-145) meq/L Potassium 4.3 (3.5-5.1) meq/L Chloride 110 H (98-107) meq/L Carbon Dioxide 19.6 L (21.0-32.0) meq/L BUN 21 H (7-18) mg/dL Creatinine 1.02 H (0.50-1.00) mg/dL Calcium 8.6 (8.5-10.1) mg/dL AST 29 (15-37) U/L ALT 21 (10-53) U/L Alkaline Phosphatase 70 (45-117) U/L Total Protein 6.9 (6.4-8.2) g/dL Albumin 2.9 L (3.4-5.0) g/dL Intake and Output 03/24/18 03/25/18 03/25/18 22:59 06:59 14:59 Intake Total 480 / 480 Output Total 900 / 900 Balance -420 / -420 Intake: Oral 480 / 480 Output: Urine 900 / 900 Other: Date of Last Bowel Movement 03/25/18 Weight 81.5 kg - Imaging and Cardiology Imaging: Impressions Chest X-Ray 03/24/18 09:27 CONCLUSION: Negative chest. History of bypass. Assessment and Plan - Assessment (1) Acute non-ST elevation myocardial infarction (NSTEMI) Code(s): I21.4 - Non-ST elevation (NSTEMI) myocardial infarction Status: Acute Plan: Stable overnight. No further angina. Recommend cath later today. Add beta mila, resume her ARB. (2) Hypertension Code(s): I10 - Essential (primary) hypertension Status: Chronic Plan: Stable. Normotensive. (3) Hyperlipidemia Code(s): E78.5 - Hyperlipidemia, unspecified Status: Chronic Plan: Acceptable lipid profile. Continue statin therapy. - Plan Code Status: full code Discussed Condition With: patient (2) Hypertension Qualifiers: Hypertension type: essential hypertension Qualified Code(s): I10 - Essential (primary) hypertension (3) Hyperlipidemia Qualifiers: Hyperlipidemia type: mixed hyperlipidemia Qualified Code(s): E78.2 - Mixed hyperlipidemia
[2018-03-25] MEDS ORDERED: TOVIAZ 8 MG PO SCH (09:00)
[2018-03-25] MEDS ORDERED: Aspirin 325 MG Tablet PO SCH (09:00)
[2018-03-25] MEDS: Sod Chloride 0.9% Inj 1,000 ML IV.CONT SCH ×2 (09:21→18:41)
[2018-03-25] MEDS: Nystatin 100,000 UNITS/GM Powder 15 GM Bottle TOPICAL SCH ×3 (12:30→21:21)
[2018-03-25] MEDS: Heparin Drip 25,000 UNIT/250 ML BAG IV.CONT PRN (13:14)
--- NOTE | 2018-03-25 13:53 | ECHRPT ---
Indication: chest pain CONCLUSIONS The left ventricular systolic function is reduced with a calculated ejection fraction oin the range of 30-35%. Normal left ventricular size and wall thickness. There is diffuse global hypokinesis with a dyskinetic apex involving the anterior, inferior, septal, and lateral chauhan. Mild mitral valve regurgitation. Mild tricuspid valve regurgitation. The estimated pulmonary arterial pressure is 43 mmHg. IVC is normal size with less than 50% collapse on inspiration. Overall technically difficult study. Compared to the prior exam 12/2012, there is a decrease in the E F and there are wall motion abnormalities present. BP: / HR: 76 Rhythm: sinus MEASUREMENTS (Male / Female) Normal Values Technical Quality:poor 2D ECHO LV Diastolic Diameter PLAX 4.6 cm 4.2 - 5.9 / 3.9 - 5.3 cm LV Systolic Diameter PLAX 3.8 cm IVS Diastolic Thickness 1.0 cm 0.6 - 1.0 / 0.6 - 0.9 cm LVPW Diastolic Thickness 1.1 cm 0.6 - 1.0 / 0.6 - 0.9 cm LV Relative Wall Thickness 0.4 RV Internal Dim ED PLAX 2.3 cm LVOT Diameter 1.5 cm Aortic Root Diameter 2.4 cm LA Systolic Diameter LX 3.8 cm 3.0 - 4.0 / 2.7 - 3.8 cm LV Ejection Fraction MOD BP 42.9 % >= 55 % LV Ejection Fraction MOD 4C 35.6 % LV Ejection Fraction 4C AL 36.1 % LV Ejection Fraction MOD 2C 47.1 % LV Ejection Fraction 2C AL 49.4 % M-MODE Aortic Root Diameter MM 2.8 cm LA Systolic Diameter MM 2.9 cm LA Ao Ratio MM 1.0 AV Cusp Separation MM 1.2 cm DOPPLER AV Peak Velocity 135.0 cm/s AV Peak Gradient 7.3 mmHg LVOT Peak Velocity 110.0 cm/s LVOT Peak Gradient 4.8 mmHg AV Area Cont Eq pk 1.4 cm Mitral E Point Velocity 88.8 cm/s Mitral A Point Velocity 144.0 cm/s Mitral E to A Ratio 0.6 LV E' Lateral Velocity 4.4 cm/s Mitral E to LV E' Lateral Ratio 20.3 LV E' Septal Velocity 5.0 cm/s Mitral E to LV E' Septal Ratio 17.9 TR Peak Velocity 265.0 cm/s TR Peak Gradient 28.1 mmHg Right Atrial Pressure 10.0 mmHg Pulmonary Artery Systolic Pressu 38.1 mmHg Right Ventricular Systolic Press 38.1 mmHg PV Peak Velocity 103.0 cm/s PV Peak Gradient 4.2 mmHg FINDINGS LEFT VENTRICLE Normal left ventricular size. Wall thickness is normal. The left ventricular systolic function is severely reduced with an estimated ejection fraction in th e range of 30-35% There is diffuse global hypokinesis with distinct regional wall motion abnormalities. RIGHT VENTRICLE Normal right ventricular size and systolic function. LEFT ATRIUM The left atrial size is normal. RIGHT ATRIUM The right atrial size is normal. ATRIAL SEPTUM Normal atrial septal thickness without atrial level shunting by limited color doppler interrogation. AORTA The aortic root and proximal ascending aorta are normal in size on limited imaging. MITRAL VALVE Mitral annular calcification is present. Mild mitral valve regurgitation. AORTIC VALVE Trileaflet aortic valve. No aortic valve stenosis or regurgitation. TRICUSPID VALVE There is mild tricuspid valve regurgitation. The estimated pulmonary arterial pressure is 3 mmHg. PULMONARY VALVE No pulmonary valve regurgitation or stenosis. VESSELS The inferior vena cava is normal in size with less than 50% collapse on Inspiration. PERICARDIUM No pericardial effusion. Lisa Beltran MD (Electronically Signed) Final Date:25 March 2018 13:51
--- NOTE | 2018-03-25 13:59 | P.PN ---
Subjective Interval history: Nursing denies any deterioration since last night. Patient herself has no chest pain, shortness of breath at this time. Says she gets exertional dyspnea at home Physical Exam Vital signs: Vital Signs 03/24/18 16:20 03/24/18 17:40 03/24/18 19:07 Temperature Pulse Rate 93 H 99 H 99 H Respiratory Rate 17 18 16 Blood Pressure 135/62 127/58 L Pulse Oximetry 96 97 03/24/18 20:00 03/24/18 20:55 03/24/18 21:00 Temperature 98.4 F Pulse Rate 99 H 97 H Respiratory Rate 18 Blood Pressure 128/59 L Pulse Oximetry 97 96 03/24/18 22:00 03/24/18 23:00 03/24/18 23:38 Temperature 98.1 F Pulse Rate 98 H 96 H 92 H Respiratory Rate 18 Blood Pressure 127/66 Pulse Oximetry 96 03/25/18 00:00 03/25/18 01:00 03/25/18 02:00 Temperature Pulse Rate 92 H 93 H 91 H Respiratory Rate Blood Pressure Pulse Oximetry 03/25/18 03:00 03/25/18 04:00 03/25/18 05:00 Temperature 98.2 F Pulse Rate 84 75 80 Respiratory Rate 18 Blood Pressure 128/74 Pulse Oximetry 96 03/25/18 06:00 03/25/18 07:00 03/25/18 08:00 Temperature 97.8 F Pulse Rate 82 95 H 90 Respiratory Rate 20 Blood Pressure 141/65 H Pulse Oximetry 97 03/25/18 09:00 03/25/18 10:00 03/25/18 11:00 Temperature 97.8 F Pulse Rate 79 86 87 Respiratory Rate 18 Blood Pressure 123/63 Pulse Oximetry 97 03/25/18 11:08 03/25/18 12:00 03/25/18 13:00 Temperature 97.5 F L Pulse Rate 86 84 Respiratory Rate 18 Blood Pressure 126/69 Pulse Oximetry 98 96 Intake & Output 03/24/18 03/25/18 03/25/18 18:59 06:59 18:59 Intake Total 480 / 480 250 / 250 Output Total 900 / 900 Balance -420 / -420 250 / 250 Weight 81.647 kg 81.5 kg Intake: IV 250 / 250 Heparin/D5W 25,000 U/250 mL 25, 250 / 250 000 unit In 250 ml @ Per Protocol IV.CONT TITRATE PRN Rx #:[id number] Oral 480 / 480 Output: Urine 900 / 900 Other: Date of Last Bowel Movement 03/25/18 Narrative: Lying in bed, clear lungs bilaterally, no acute distress, unlabored breathing Unchanged left lower extremity edema since yesterday Results - Labs CBC & Chem 7: 03/25/18 05:17 03/24/18 09:30 Laboratory Results - last 24 hr 03/24/18 03/24/18 03/24/18 15:15 15:15 21:58 WBC RBC Hgb Hct MCV MCH MCHC RDW Plt Count MPV APTT 55.5 H D Troponin I 1.13 H* D 1.73 H* D 03/24/18 03/25/18 03/25/18 21:58 05:17 05:17 WBC 7.4 RBC 4.56 Hgb 13.8 Hct 42.2 MCV 92.7 MCH 30.2 MCHC 32.6 RDW 14.2 Plt Count 280 MPV 8.4 APTT 51.3 H 50.4 H Troponin I Microbiology 03/25/18 08:30 Stool Stool Occult Blood (MARY) - Final Hemoccult positive Assessment and Plan - Plan 78-year-old white female being admitted for chest pain with possible N STEMI Chest pain possible NSTEMI vs STEMI, -heparin drip, daily aspirin, Lipitor tonight, cardiology following closely, anticipate catheterization today -Telemetry and trending troponins, ordering echocardiogram Hypertension Losartan, coreg chronic systolic hf - 30-35% on echo, losartan and coreg Chronic mood/anxiety Can paroxetine Chronic incontinence Continue home Toviaz On heparin drip
[2018-03-25] MEDS ORDERED: Heparin/NS PF Inj 1,000 ML ONE (14:46)
[2018-03-25] MEDS ORDERED: fentaNYL Citrate Inj 100 MCG/2 ML Ampul ONE (15:12)
[2018-03-25] MEDS ORDERED: Heparin 10,000 UNITS/10 ML Vial (for IV use) ONE (15:51)
[2018-03-25] MEDS ORDERED: Cangrelor Inj 50,000 MCG Vial ONE (15:53)
[2018-03-25] MEDS ORDERED: Heparin/NS PF Inj 500 ML ONE (16:30)
[2018-03-25] MEDS ORDERED: Iohexol 350 MG/ML 100 ML Vial (for Cath Lab) IVCONTRAST ONE (17:20)
--- NOTE | 2018-03-25 17:27 | CATHPROC ---
[employer] HIS Report Study Information Study Number Admission Scheduled Start Study Start [id number] Mar 24 2018 11:19AM 03/25/2018 Mar 25 2018 2:51PM Bra[facility] Service Cardiac Pacer/ICD Admit Source Facility Department Emergency department [facility] - Supervisor [employer] Physician and Clinical Staff Initial Joseph Lopez Agile Business Analyst Marin Quigley,RN Agile Business Analyst Merritt RN, Mike Recorder Yue Harp,RT(R) Antonino Minaya,RT(R) Procedures Performed Procedure Location (Site) Vessel Name Coronary Angiograms LCA Left Coronary Coronary Angiograms RCA Right Coronary Coronary Angiograms SVG-DIAG Left Coronary Coronary Angiograms SVG-OM CIRC Drug Eluting Inflatio SVG-DIAG Left Coronary Drug Eluting Inflatio RCA Ost Right Coronary L Heart Cath PTCA SVG-DIAG Left Coronary PTCA SVG-OM CIRC PTCA RCA Ost Right Coronary Wire insertion Fem Art (left) Femoral Art Equipment Time Tunnel Kiln Operator Description Size Mfg Part Number Used/Scraped [id number] 16:33 [employer] WIRE, ASAHI PROWATER 180CM 180CM Used *[id number] TRANSDUCER, TRUWAVE [id number] 15:13 SALGUERO FELICIANO * Used W/STOCKCOCK *[id number] 16:34 [employer] BALLOON, 2.5 8MM EMERGE MR 2.5 8MM Used *[id number] BALLOON, 2.75 8[id number] 16:40 [employer] 2.75 8MM Used QUANTUM APEX MR *[id number] 16:10 [employer] BALLOON, 3.0 15MM EMERGE MR 3.0 15MM Used *[id number] BALLOON, 3.0 6MM WOLVERINE [id number] 16:46 [employer] 3.0 6MM Used CUTTING *[id number] 16:20 [employer] BALLOON, 3.5 15MM EMERGE MR 3.5 15MM Used *[id number] 15:54 [employer] WIRE, FILTERWIRE EZ 190CM 190CM Used *[id number] *[id number] [id number] *[id number] 534-620T *[id number] [id number] *[id number] 15:13 [employer] BLANKET,WARM AIR CCL * Used *[id number] 15:13 [employer] INDUSTRIES PACK, CCL CUSTOM * Used *[id number] 15:13 MEDLINE PACER PEN, SKIN DUAL W/ RULER * Used *[id number] 16:57 [employer] STENT, 3.0 12MM TOSIN 3.0 12MM Used *[id number] 16:13 [employer]TR[employer]IC STENT, 3.5 18MM TOSIN 3.5 18MM Used *[id number] [id number] 16:13 [email or web address] 30 AKIL INDEFLATOR Used *6422436 [id number] 15:13 [email or web address] SHEATH, FR6.5 PRELUDE 11CM FR 6.5 038ACT Used *[id number] [id number] 15:13 [email or web address] WIRE, 3MMJ .035 180CM 180CM Used *1307039 [id number] 15:13 [facility] MANIFOLD, 4 PORT * Used *[id number] 15:13 NYCOMED OMNIPAQUE, 350 MG, 150ML 150ML [id number] Used Equipment Model, Serial, Lot Number and Expiration Data Description Model Number Serial Number Lot Number Expiration Date BALLOON, 2.5 8MM EMERGE MR [id number] 10-18-2019 BALLOON, 3.0 6MM WOLVERINE [id number] 11-23-2019 CUTTING STENT, 3.0 12MM TOSIN [id number] 09-06-2019 STENT, 3.5 18MM TOSIN [id number] 08-24-2019 WIRE, FILTERWIRE EZ 190CM [id number] 11-08-2018 History: Current Medications Medication Dosage/Unit Route Frequency Last Date/Time Taken Statins (any) History: Allergies Allergy Reaction No Known Allergies History: Risk Factors Family History of Hypertension Dyslipidemia Previous PA Previous Heart Failure Premature CAD Yes Yes No No No Prior Valve Prior PCI Prior CABG Surgery No No Yes Cerebrovascular Peripheral Artery Chronic Lung On Dialysis Diabetes Disease Disease Disease No No No No Yes Labs Hgb (g/dl) Hct (%) WBC (l/cumm) Platelets (thousands) 11.60-17.00 35.00-51.00 4.00-11.00 150.00-450.00 13.8 42.2 7.4 280 Glucose (mg/dl) BUN (mg/dl) Creatinine (mg/dl) BUN:Creatinine (1:x) 74.00-106.00 7.00-18.00 0.50-1.30 10.00-20.00 129 21 1.0 21 Na (meq/l) K (meq/l) 136.00-145.00 3.50-5.10 141 4.3 INR (PTT:PT) 0.90-1.10 1.1 Troponin I (ng/ml) CPK-MB (ng/ML) 0.02-0.05 0.50-3.60 1.73 Not Drawn Medication Medication Total Dose (Bolus/Oral) Medication Total Dosage/Unit 1% XYLOCAINE 20 mL FENTANYL 50 mcg HEPARIN 6000 units NTG (IC) 100 mcg OXYGEN 2 l/min VERSED 3 mg ZOFRAN 4 mg Medications (Bolus/Oral) Medication Time Given Dosage/Unit Administered By Reason VERSED 03/25/2018 3:33:50 PM 2 mg Mike Bang RN 2 mg VERSED given in lab by Mike Bang RN in Right Hand via Peripheral IV. Ordered by Joseph Quintana. OXYGEN 03/25/2018 3:34:11 PM 2 l/min Mike Bang RN 2 l/min OXYGEN given in lab by Mike Bang RN via Nasal. Ordered by Joseph Quintana. FENTANYL 03/25/2018 3:34:12 PM 50 mcg Mike Bang RN 50 mcg FENTANYL given in lab by Mike Bang RN in Right Hand via Peripheral IV. Ordered by Koby Quintana. 1% XYLOCAINE 03/25/2018 3:34:26 PM 20 mL Joseph Quintana 20 mL 1% XYLOCAINE given in lab by Joseph Quintana in Left Groin via Subcutaneous. HEPARIN 03/25/2018 3:52:06 PM 6000 units Mike Bang RN 6000 units HEPARIN given in lab by Mike Bang RN in Right Hand via Peripheral IV. Ordered by Joseph Quintana. ZOFRAN 03/25/2018 4:00:17 PM 4 mg Mike Bang RN 4 mg ZOFRAN given in lab by Mike Bang RN in Left Hand via Peripheral IV. Ordered by Joseph Quintana. VERSED 03/25/2018 4:04:10 PM 1 mg Mike Bang RN 1 mg VERSED given in lab by Mike Bang RN in Left Hand via Peripheral IV. Ordered by Joseph Quintana. NTG (IC) 03/25/2018 4:56:08 PM 100 mcg Joseph Quintana 100 mcg NTG (IC) given in lab by Joseph Quintana in Left Groin via Intra-coronary. Ordered by Geena Quintana. Medication (Drip) Medication Time Given Dosage/Unit Concentration/Unit Diluent (ml) Solution IV Solutions 03/25/2018 3:16:57 PM 50 mL (IV) NaCl .9 IV Solutions given in lab by Mike Bang RN in Right Hand via Peripheral IV. Pump/Drip Flow using Na Cl .9. Ordered by Joseph Quintana. KENGREAL BOLUS 03/25/2018 3:57:42 PM 12 mL 12 mL KENGREAL BOLUS given in lab by Mike Bang RN in Left Hand via Peripheral IV. Ordered by Joseph Quintana. KENGREAL DRIP 03/25/2018 3:59:19 PM 3.931 mcg/kg/min 50 mg 250 NaCl .9 3.931 mcg/kg/min KENGREAL DRIP given in lab by Mike Bang RN in Left Hand via Peripheral IV. Pump/D rip Flow = 96 ml/hr using NaCl .9 with a concentration of 50 mg in 250 ml. Ordered by Joseph Quintana. NITROGLYCERIN DRIP 03/25/2018 3:10:59 PM 16.667 mcg/min 50 mg 250 D5W Patient arrived on 16.667 mcg/min NITROGLYCERIN DRIP in Left Hand via Peripheral IV. Pump/Drip Flow = 5 ml/hr using D5W with a concentration of 50 mg in 250 ml. Initial Case Assessment Cardiovascular HR NIBP 77 118/61 Edema Present Skin color Skin None Normal Warm Dry Circulatory - Right Pulses Dorsalis Pedis Femoral 2 2 Scale (0,1,2,3,4,d) Circulatory - Left Pulses Dorsalis Pedis Femoral 2 2 Scale (0,1,2,3,4,d) Neurological State Oriented to time-place- Alert Moves all extremities person Respiration - General Respiration Rate SpO2 (%) (B/min) 12 96 Final Case Assessment Cardiovascular HR NIBP 91 107/50 Edema Present Skin color Skin None Normal Warm Dry Circulatory - Right Pulses Dorsalis Pedis Femoral 2 2 Scale (0,1,2,3,4,d) Circulatory - Left Pulses Dorsalis Pedis Femoral 2 2 Scale (0,1,2,3,4,d) Neurological State Oriented to time-place- Alert Moves all extremities person Respiration - General Respiration Rate SpO2 (%) O2 (lpm) (B/min) 18 97 2 Chronological Log Time Study Chronological Log 15::23 Patient arrived via Bed. 15:03:57 Patient Name, D.O.B, / Armband Verified By R.N. 15:03:58 Consent signed by the physician and the patient and verified by the Supervisor [employer] staff. 15:03:58 Pre-op and post- op instructions given; patient acknowledges understanding of instructions. 15:04:02 Presedation assessment performed by Supervisor [employer] RN. 15:10:31 Patient has been NPO for More than 6Hrs. 15:10:32 Skin Breakdown- cellulitis left leg. rash right groin. 15:10:48 Patient Warmer Placed on the Table. 15:10:49 Kayy Prominences Protected 15:10:51 A # 20 IV was noted in the Hand (right). Grade = 0 15:10:55 A # 20 IV was noted in the Hand (left). Grade = 0 Patient arrived on 16.667 mcg/min NITROGLYCERIN DRIP in Left Hand via Peripheral IV. Pump/Drip Flow = 5 ml/hr 15:10:59 using D5W with a concentration of 50 mg in 250 ml. Vitals capture started with the following parameters, Patient=Adult, Interval=5 min, Initial Pr ccwklk=328 mmHg, 15:13:31 Deflation Rate=5 mmHg, Cuff placed on Left Arm 15:14:11 HR=77 bpm, YODX=690/61 mmhg, SpO2=96.0 %, Resp=12 B/min 15:15:03 Reference ECG taken Assessment: Initial Case, HR=77 BPM, QCAJ=160/61 mmhg, Edema=None, Color=Normal, Skin = Warm, D ry Right Pulses: Humberto Ped=2, Femoral=2 15:15:11 Left Pulses: Humberto Ped=2, Femoral=2 Neurological: State=Alert, Ox3, KOLB Respiration: Resp=12 B/min, SpO2=96 % IV Solutions given in lab by Mike Bang RN in Right Hand via Peripheral IV. Pump/Drip Flow us ing NaCl .9. Ordered by 15:16:57 Joseph Quintana. 15:19:10 HR=78 bpm, BRCK=299/53 mmhg, SpO2=96.0 %, Resp=14 B/min 15:22:16 Bilateral groins prepped with 2% chlorhexidine, and draped after a 3 minute waiting time. 15:22:32 History and physical on the chart or being dictated. 15:24:40 Pressure channel 1 zeroed. 15:24:42 HR=76 bpm, RPDN=216/62 mmhg, SpO2=95.0 %, Resp=14 B/min 15:25:31 MD responded 15:28:55 MD arrived. 15:29:10 HR=76 bpm, BWSR=771/67 mmhg, SpO2=97.0 %, Resp=10 B/min Time Out. Correct patient, correct procedure, correct physician, labs, allergies, and equipment verified with wheelabrator operator 15:33:13 team present. Fire risk assesment completed (see hard stop sheet for coding). Time Out Conc urred by MD and individual staff in procedure. 15:33:50 2 mg VERSED given in lab by Mike Bang RN in Right Hand via Peripheral IV. Ordered by Joseph Carrion. 15:34:09 HR=67 bpm, QDSD=757/62 mmhg, SpO2=96.0 %, Resp=12 B/min 15:34:11 2 l/min OXYGEN given in lab by Mike Bang RN via Nasal. Ordered by Joseph Quintana. 15:34:12 50 mcg FENTANYL given in lab by Mike Bang RN in Right Hand via Peripheral IV. Ordered by Joseph Quintana. 15:34:22 Case Start 15:34:26 20 mL 1% XYLOCAINE given in lab by Joseph Quintana in Left Groin via Subcutaneous. 15:37:46 Access site was Left Femoral Artery. 15:37:51 A SHEATH, FR6.5 PRELUDE 11CM FR 6.5 was advanced into the Fem Art (left) using the Percutan eous technique. A JL 4.0 INFINITI CATHETER FR 6 was advanced over a wire. OMNIPAQUE, 350 MG, 150ML 150ML was us ed for 15:38:39 injections. 15:39:08 HR=96 bpm, MTSK=612/66 mmhg, SpO2=95 %, Resp=11 B/min Recorded Pressure: Ao, HR=84, Condition=Condition 1 15:39:22 (Aorta) Ao 119/53/80 15:39:57 The LCA was injected and visualized at various angles. OMNIPAQUE, 350 MG, 150ML 150ML used . 15:41:04 Ventricular Fibrillation noted. 15:41:10 Disposable Defibrillator Pads Placed On Patient. 15:42:00 Patient defibrillated at 200 joules. The ECG rhythm was noted as V-Fib. 15:42:24 pt returned to sinus rhythm After removing the current catheter a 3DRC INFINITI CATHETER FR 6 was advanced over a WIRE, 3MM J .035 180CM 15:44:21 180CM. 15:44:40 The RCA was injected and visualized at various angles. OMNIPAQUE, 350 MG, 150ML 150ML used . 15:44:46 HR=93 bpm, QCEQ=619/91 mmhg, SpO2=96.0 %, Resp=12 B/min 15:44:46 The SVG-OM was injected and visualized at various angles. OMNIPAQUE, 350 MG, 150ML 150ML us ed. 15:45:05 The SVG-DIAG was injected and visualized at various angles. OMNIPAQUE, 350 MG, 150ML 150ML used. 15:45:53 A WIRE, 3MMJ .035 180CM 180CM was inserted via Fem Art (left). 15:46:06 Wire removed 15:49:14 HR=96 bpm, DILH=902/84 mmhg, SpO2=96.0 %, Resp=13 B/min 15:50:07 Catheter was removed 15:52:06 6000 units HEPARIN given in lab by Mike Bang RN in Right Hand via Peripheral IV. Ordered by Joseph Quintana. 15:53:51 A LCB GUIDE CATHETER FR 6 was advanced over a wire. OMNIPAQUE, 350 MG, 150ML 150ML was used for injections. 15:54:17 HR=94 bpm, DYRR=984/75 mmhg, SpO2=96.0 %, Resp=13 B/min 15:56:15 A WIRE, FILTERWIRE EZ 190CM 190CM was inserted via Fem Art (left). 15:57:42 12 mL KENGREAL BOLUS given in lab by Mike Bang RN in Left Hand via Peripheral IV. Ordere d by Joseph Quintana. 15:59:12 HR=93 bpm, VYXR=422/89 mmhg, SpO2=98.0 %, Resp=12 B/min 3.931 mcg/kg/min KENGREAL DRIP given in lab by Mike Bang RN in Left Hand via Peripheral IV. Pump/Drip Flow = 96 15:59:19 ml/hr using NaCl .9 with a concentration of 50 mg in 250 ml. Ordered by Joseph Quintana. 16:00:17 4 mg ZOFRAN given in lab by Mike Bang RN in Left Hand via Peripheral IV. Ordered by Joseph Prieto. 16:04:10 1 mg VERSED given in lab by Mike Bang RN in Left Hand via Peripheral IV. Ordered by Joseph Prieto. 16:04:15 HR=94 bpm, SECE=541/84 mmhg, SpO2=98.0 %, Resp=11 B/min 16:09:18 HR=83 bpm, DLTZ=853/68 mmhg, SpO2=98.0 %, Resp=13 B/min 16:10:30 Activated Clotting Time Drawn A BALLOON, 3.0 15MM EMERGE MR 3.0 15MM was inserted over WIRE, FILTERWIRE EZ 190CM 190CM via th e Fem Art 16:11:02 (left). A BALLOON, 3.0 15MM EMERGE MR 3.0 15MM over a WIRE, FILTERWIRE EZ 190CM 190CM in the SVG-OM was inflated 16:11:28 using a 30 AKIL INDEFLATOR at 10 akil for 27 sec. 16:13:28 Balloon Removed. A STENT, 3.5 18MM TOSIN 3.5 18MM was advanced through a LCB GUIDE CATHETER FR 6 over a WIRE, NADEEM TERWIRE EZ 16:13:47 190CM 190CM. 16:14:13 HR=81 bpm, BVMP=428/58 mmhg, SpO2=97.0 %, Resp=12 B/min 16:15:26 ACT (Normal Range 90-180) = 315 16:16:17 Stent not deployed. Stent removed and intact. A BALLOON, 3.5 15MM EMERGE MR 3.5 15MM was inserted over WIRE, FILTERWIRE EZ 190CM 190CM via th e Fem Art 16:18:35 (left). 16:19:14 HR=79 bpm, QNRO=766/54 mmhg, SpO2=98.0 %, Resp=14 B/min, Ng=2 A BALLOON, 3.5 15MM EMERGE MR 3.5 15MM over a WIRE, FILTERWIRE EZ 190CM 190CM in the SVG-DIAG w as 16:20:15 inflated using a 30 AKIL INDEFLATOR at 10 akil for 10 sec. 16:20:45 Balloon Removed. A STENT, 3.5 18MM TOSIN 3.5 18MM was advanced through a LCB GUIDE CATHETER FR 6 over a WIRE, NADEEM TERWIRE EZ 16:21:58 190CM 190CM. A STENT, 3.5 18MM TOSIN 3.5 18MM was deployed using a 30 AKIL INDEFLATOR at 17 atmospheres for 35 seconds in 16:22:17 the SVG-DIAG. 16:22:53 Delivery device removed 16:24:50 HR=87 bpm, BALU=461/75 mmhg, SpO2=99.0 %, Resp=14 B/min 16:28:35 Filter Wire removed 16:29:19 HR=72 bpm, BLEY=655/51 mmhg, SpO2=99.0 %, Resp=13 B/min 16:30:34 NITRO DRIP DISCONTINUED After removing the current catheter a 3DRC SH GUIDE CATHETER FR 6 was advanced over a WIRE, 3MM J .035 180CM 16:32:04 180CM. 16:32:29 A WIRE, ASAHI PROWATER 180CM 180CM was inserted via Fem Art (left). 16:34:14 HR=87 bpm, NIBP=95/55 mmhg, SpO2=97.0 %, Resp=14 B/min A BALLOON, 2.5 8MM EMERGE MR 2.5 8MM was inserted over WIRE, ASAHI PROWATER 180CM 180CM via the Fem Art 16:34:18 (left). A BALLOON, 2.5 8MM EMERGE MR 2.5 8MM over a WIRE, ASAHI PROWATER 180CM 180CM in the RCA Ost was inflated 16:35:02 using a 30 AKIL INDEFLATOR at 13 akil for 15 sec. A BALLOON, 2.5 8MM EMERGE MR 2.5 8MM over a WIRE, ASAHI PROWATER 180CM 180CM in the RCA Ost was inflated 16:36:15 using a 30 AKIL INDEFLATOR at 13 akil for 15 sec. 16:37:14 Balloon Removed. 16:39:08 HR=87 bpm, JGZG=881/57 mmhg, SpO2=98.0 %, Resp=12 B/min A BALLOON, 2.75 8MM NC QUANTUM APEX MR 2.75 8MM was inserted over WIRE, ASAHI PROWATER 180CM 18 0CM 16:39:50 via the Fem Art (left). A BALLOON, 2.75 8MM NC QUANTUM APEX MR 2.75 8MM over a WIRE, ASAHI PROWATER 180CM 180CM in the RCA 16:40:11 Ost was inflated using a 30 AKIL INDEFLATOR at 18 akil for 35 sec. A BALLOON, 2.75 8MM NC QUANTUM APEX MR 2.75 8MM over a WIRE, ASAHI PROWATER 180CM 180CM in the RCA 16:41:48 Ost was inflated using a 30 AKIL INDEFLATOR at 18 akil for 35 sec. 16:44:12 HR=92 bpm, ZEBH=778/55 mmhg, SpO2=98.0 %, Resp=13 B/min, Pain=0, Cecy=10, Ng=2 16:45:10 Balloon Removed. A BALLOON, 3.0 6MM WOLVERINE CUTTING 3.0 6MM was inserted over WIRE, ASAHI PROWATER 180CM 180CM via 16:46:49 the RCA Ost. A BALLOON, 3.0 6MM WOLVERINE CUTTING 3.0 6MM over a WIRE, ASAHI PROWATER 180CM 180CM in the RCA Ost 16:47:34 was inflated using a 30 AKIL INDEFLATOR at 10 akil for 44 sec. A BALLOON, 3.0 6MM WOLVERINE CUTTING 3.0 6MM over a WIRE, ASAHI PROWATER 180CM 180CM in the RCA Ost 16:48:40 was inflated using a 30 AKIL INDEFLATOR at 10 akil for 33 sec. 16:49:17 HR=65 bpm, BUHB=498/53 mmhg, SpO2=99.0 %, Resp=14 B/min, Pain=0, Cecy=10, Ng=2 A BALLOON, 3.0 6MM WOLVERINE CUTTING 3.0 6MM over a WIRE, ASAHI PROWATER 180CM 180CM in the RCA Ost 16:49:51 was inflated using a 30 AKIL INDEFLATOR at 10 akil for 50 sec. A BALLOON, 3.0 6MM WOLVERINE CUTTING 3.0 6MM over a WIRE, ASAHI PROWATER 180CM 180CM in the RCA Ost 16:52:08 was inflated using a 30 AKIL INDEFLATOR at 10 akil for 44 sec. A BALLOON, 3.0 6MM WOLVERINE CUTTING 3.0 6MM over a WIRE, ASAHI PROWATER 180CM 180CM in the RCA Ost 16:53:52 was inflated using a 30 AKIL INDEFLATOR at 10 akil for 43 sec. 16:54:18 HR=76 bpm, DLDC=521/62 mmhg, SpO2=99.0 %, Resp=13 B/min 16:56:04 Balloon Removed. 16:56:08 100 mcg NTG (IC) given in lab by Joseph Quintana in Left Groin via Intra-coronary. Ordered by Joseph Quintana. 16:57:35 Activated Clotting Time Drawn A STENT, 3.0 12MM TOSIN 3.0 12MM was advanced through a [address] [place] [address] GUIDE CATHETER FR 6 over a WIRE, ASAHI 16:58:20 PROWATER 180CM 180CM. A STENT, 3.0 12MM TOSIN 3.0 12MM was deployed using a 30 AKIL INDEFLATOR at 15 atmospheres for 40 seconds in 16:58:22 the RCA Ost. 16:59:15 HR=90 bpm, BPRF=222/46 mmhg, SpO2=97.0 %, Resp=12 B/min, Pain=0, Cecy=10, Ng=2 16:59:15 Delivery device removed 17:00:37 Wire removed 17:00:40 Catheter was removed PCI QA completed: Pre-Darien - ~PRE DARIEN~, Post [place] - ~POST DARIEN~, Type - ~TYPE~, Length - 12 mm , Morphology - 17:01:43 ~MORPHOLOGY~, Indications - ~INDICATIONS~, Pre-Stenosis - 90% and Post Stenosis - 0%. 17:01:45 PCI QA obtained from [employer] 17:01:47 Case End (Physician broke scrub) PCI QA completed: Pre-Darien - 2, Post [place]arien - 3, Type - ~TYPE~, Length - 5 mm, Morphology - ~MORP HOLOGY~, 17:01:52 Indications - ~INDICATIONS~, Pre-Stenosis - 920% and Post Stenosis - 0%. 17:02:51 PCI QA obtained from [employer] Assessment: Final Case, HR=91 BPM, FCKQ=731/50 mmhg, Edema=None, Color=Normal, Skin = Warm, Dry Right Pulses: Humberto Ped=2, Femoral=2 17:04:14 Left Pulses: Humberto Ped=2, Femoral=2 Neurological: State=Alert, Ox3, KOLB Respiration: Resp=18 B/min, SpO2=97 %, O2=2 lpm 17:04:18 HR=91 bpm, DJSE=751/50 mmhg, SpO2=97.0 %, Resp=18 B/min, Pain=0, Cecy=10, Ng=2 17:07:29 Catheter(s) removed without difficulty 17:07:31 In the Fem Art (left) the SHEATH, FR6.5 PRELUDE 11CM FR 6.[address] by Joseph Quintana. 17:07:57 Sterile dressing applied to site 17:08:02 No case complications noted. 17:08:07 Cine recording checked. 17:15:00 Bedside Report will be given. 17:15:01 Implantable Device card placed in patient's chart. 17:15:16 A Left Heart Cath was performed. 17:15:18 Patient moved to [facility] End Study - Contrast Media Used In Study Contrast Total Opened (mL) Total Used (mL) Total Wasted (mL) Omnipaque 265 265 0 End Study - Maximum Contrast Load Max Contrast Load (mL) 406.8 End Study - Radiation Exposure Fluoro Time (minutes) 24.7 End Study - Patient Disposition Complications Transferred To Interventional Outcome No Telemetry Bed successful
[2018-03-25] MEDS ORDERED: Misc Info for Pharmacy OTHER STA (17:33)
[2018-03-25] MEDS ORDERED: Sod Chloride 0.9% Inj 1,000 ML IV.CONT SCH (17:45)
--- NOTE | 2018-03-25 18:34 | ECG ---
Date Performed: 03/24/2018 Time Performed: 20:58:40 PTAGE: 78 years EKG: Sinus rhythm Possible left atrial abnormality Rightward axis Lateral T wave changes are nonspecific Low QRS volta ges in limb leads Borderline ECG PREVIOUS TRACING : 03/24/2018 11.05 DOCTOR: Coreen Garcia Interpretating Date/Time 03/25/2018 18:32:19
--- NOTE | 2018-03-25 18:46 | ECG ---
Date Performed: 03/24/2018 Time Performed: 11:05:58 PTAGE: 78 years EKG: SINUS TACHYCARDIA POSSIBLE LEFT ATRIAL ENLARGEMENT INDETERMINATE AXIS ABNORMAL ECG PREVIOUS TRACING : 03/24/2018 09.17 DOCTOR: Coreen Garcia Interpretating Date/Time 03/25/2018 18:38:48
--- NOTE | 2018-03-25 18:46 | ECG ---
Date Performed: 03/24/2018 Time Performed: 10:40:38 PTAGE: 78 years EKG: Sinus rhythm POSSIBLE LEFT ATRIAL ENLARGEMENT INDETERMINATE AXIS NONSPECIFIC ST ELEVATION BORDERLINE ECG NO PREVIOUS TRACING DOCTOR: Coreen Garcia Interpretating Date/Time 03/25/2018 18:38:59
--- NOTE | 2018-03-25 18:49 | ECG ---
Date Performed: 03/24/2018 Time Performed: 09:17:49 PTAGE: 78 years EKG: Sinus rhythm LEFT ATRIAL ENLARGEMENT MARKED RIGHT AXIS DEVIATION MODERATE T-WAVE ABNORMALITY, CONSIDER ANTERIOR I SCHEMIA ABNORMAL ECG INTERPRETATION BASED ON A DEFAULT AGE OF 40 YEARS PREVIOUS TRACING : 08/14/2014 05.44 DOCTOR: Coreen Garcia Interpretating Date/Time 03/25/2018 18:39:54
--- NOTE | 2018-03-25 20:32 | MA ---
cc: Joseph Quintana MD DATE: 03/25/2018 PROCEDURE: Left heart catheterization, selective coronary angiography, angioplasty and stent of the vein graft to the diagonal, difficult angioplasty and stent of the ostium of the right coronary artery. PROCEDURE NOTE: The patient was brought to the cardiac catheterization laboratory in a fasting state after having signed informed consent. The right groin was prepped and draped as per policy and anesthetized with 1% lidocaine. Arterial access was obtained via the right femoral artery and a 6-Chinese sheath placed. Coronary arteriography was performed using 6-Chinese Jacquelyn left 4.0 and right progressive catheters. The left internal mammary artery was engaged with a progressive right catheter. This catheter was also used to engage the vein grafts. Percutaneous coronary and graft intervention were done as described below. The patient did have sustained ventricular fibrillation after injection of the left coronary system, promptly responsive to 1 shock. There was otherwise no other complications. The aortic valve was crossed briefly with the progressive right catheter. There was no significant transvalvular aortic gradient. CORONARY ARTERIOGRAPHY: The left main is a short vessel. It is somewhat difficult to quantify the degree of stenosis in the left main, possibly approaching 20-25% severity diffusely. The left anterior descending is totally occluded proximally after the takeoff of a small diagonal. The left circumflex is a medium-sized vessel giving rise to 2 medium sized obtuse marginals. In the proximal left circumflex, there is 75% stenosis just prior to the takeoff of the first obtuse marginal, which demonstrates competitive flow. In the mid left circumflex right at the takeoff of the second obtuse marginal. There is 50% stenosis, involving the ostium of this second obtuse marginal. The right coronary artery is a medium size dominant vessel with 90% ostial stenosis. There is also diffuse proximal disease resulting in up to 40% stenosis. The mid to distal right coronary overall has minimal luminal irregularities. GRAFT ANGIOGRAPHY: The vein graft to the diagonal has a 90% proximal stenosis. The [place] diagonal is very small in caliber and has a 90% stenosis just distal to the anastomosis site. The vein graft to the obtuse marginal is widely patent. The [place] obtuse marginal bifurcates distally, and the more lateral limb has 80% stenosis at its origin. This vessel is small. The left internal mammary artery to the LAD appears to be totally occluded proximally. There is also evidence for an unligated mammary branch arising very proximally. PERCUTANEOUS GRAFT INTERVENTION DESCRIPTION: Cangrelor was given as per protocol. Adequate heparin was given during the procedure to achieve an ACT greater than 250 seconds. Using a 6-Chinese left coronary bypass guiding catheter, the ostium of the vein graft to the diagonal was reengaged. We used an EZ filter wire, which was positioned distally in the graft. Initial predilation was done using a 3.0 mm Emerge balloon catheter. At this point, we were unable to advance a 3.5 mm Resolute Reed stent. Further predilation was done using a 3.5 mm noncompliant Quantum balloon catheter. We were then able to advance a 3.5 x 18 mm Resolute Reed stent, which was deployed at approximately 16 atmospheres for 40 seconds. Final angiography shows reduction of the initial stenosis to roughly 0% residual with no definite evidence for dissection or distal embolization. The filter wire was removed using a sheath as per protocol. It was decided not to treat the disease in the [place] diagonal distal to the anastomosis site as the vessel is very small in caliber. The guiding catheter was then exchanged for a progressive right guiding catheter with side holes. A 0.014 [place] guidewire was used to cross the disease at the ostium without difficulty and the tip of the wire positioned distally. A number of balloon inflations were done using a 2.5 mm Emerge balloon catheter. We then used a larger balloon with very little change in the angiographic appearance of the vessel. At this point, we decided to use a 3.0 mm Henderson cutting balloon. It was inflated a number of times at the ostium up to 12 atmospheres. Angiography at this point shows reduction of the initial stenosis to roughly 50% residual. A 3.0 x 12 mm Resolute Reed stent was carefully positioned and repositioned at the true ostium, deployed with its proximal edge very slightly in the aortic root. Final angiography shows good results with reduction of the initial stenosis to 0% residual with no definite evidence for dissection or distal embolization. The patient tolerated the procedure well. She was thoroughly sedated throughout most of the case. CONCLUSIONS: 1. Severe 3-vessel [place] coronary artery disease. 2. Right dominant system. 3. Totally occluded left internal mammary artery to the LAD, patent vein graft to the obtuse marginal, severely diseased vein graft to the diagonal, now status post angioplasty and stent of the proximal portion of this graft. 4. Status post difficult angioplasty, cutting balloon angioplasty, stent of the ostium of the right coronary artery. DISCUSSION: Residual disease in the [place] diagonal distal to the anastomosis site and residual disease in a branch of the [place] obtuse marginal, distal to the anastomosis site will be treated medically. These vessels are very small in caliber. MD PADDY Bowling/loreta , 05:27 PM , 05:42 PM ULISSES
[2018-03-26] MEDS: Sod Chloride 0.9% Inj 1,000 ML IV.CONT SCH ×2 (05:10→16:18)
[2018-03-26 06:35] LABS: Hematocrit 38.8 % (35.0-46.0); Hemoglobin 12.7 gm/dL (11.6-15.3); Mean Corpuscular HGB Conc 32.7 % (32.0-36.0); Mean Corpuscular Hemoglobin 30.3 pg (27.0-34.0); Mean Corpuscular Volume 92.6 fL (80.0-100.0); Mean Platelet Volume 8.1 fL (7.0-11.0); Platelet Count 270 th/mm3 (150-450); Red Blood Count 4.19 mil/mm3 (4.00-5.30); Red Cell Distribution Width 14.5 % (11.6-17.2); White Blood Count 7.2 th/mm3 (4.0-11.0)
--- NOTE | 2018-03-26 08:15 | P.PNCA ---
Subjective Interval history: Denies CP, dyspnea, dizziness, palpitations, groin pain. Medications and Allergies Active Medications: Active Medications Aspirin (Aspirin Chew) 81 mg PO DAILY [facility] Atorvastatin Calcium (Lipitor) 40 mg PO HS [facility] Last Admin: 03/25/18 21:21 Dose: 40 mg Carvedilol (Coreg) 3.125 mg PO BID [facility] Last Admin: 03/25/18 21:21 Dose: 3.125 mg Diphenhydramine HCl (Benadryl) 50 mg PO DYE TUB TENDER [facility] Stop: 03/29/18 08:29 Nitroglycerin/Dextrose (Nitroglycerin Drip Premix) 50 mg in 250 mls @ 0 mls/hr IV.CONT TITRATE PRN; Protocol PRN Reason: Per Protocol Last Titration: 03/24/18 16:17 Dose: 15 mcg/min, 4.5 mls/hr Sodium Chloride (Ns Inj) 1,000 mls @ 100 mls/hr IV.CONT .Q10H [facility] Last Admin: 03/26/18 05:10 Dose: Not Given Losartan Potassium (Cozaar) 50 mg PO DAILY [facility] Last Admin: 03/25/18 09:19 Dose: 50 mg Midazolam HCl (Versed Inj) 1 mg IV.PUSH DYE TUB TENDER [facility] Stop: 03/29/18 08:29 Nystatin (Mycostatin Powder) 1 applicatio TOPICAL QID [facility] Last Admin: 03/25/18 21:21 Dose: 1 applicatio Ondansetron HCl (Zofran Odt) 4 mg PO Q6H PRN PRN Reason: NAUSEA Paroxetine HCl (Paxil) 10 mg PO DAILY [facility] Last Admin: 03/25/18 08:19 Dose: 10 mg Pom: (Toviaz 8 Mg) 0 each PO DAILY [facility] Sodium Chloride (Ns Flush) 2 ml IV.FLUSH BID [facility] Last Admin: 03/25/18 21:22 Dose: Not Given Sodium Chloride (Ns Flush) 2 ml IV.FLUSH PRN PRN PRN Reason: FLUSH AFTER USING IV ACCESS Ticagrelor (Brilinta) 90 mg PO BID [facility] Last Admin: 03/25/18 23:50 Dose: 90 mg Allergies Allergy/AdvReac Type Severity Reaction Status Date / Time No Known Allergies Allergy Unverified 03/24/18 09:06 Home Medications Medication Instructions Recorded Confirmed Type Toviaz 8 mg PO DAILY 03/24/18 03/24/18 History losartan 25 mg PO DAILY 03/24/18 03/24/18 History paroxetine HCl 10 mg PO DAILY 03/24/18 03/24/18 History simvastatin 40 mg PO QPM 03/24/18 03/24/18 History Physical Exam Vital signs: Vital Signs 03/25/18 09:00 03/25/18 10:00 03/25/18 11:00 Temperature 97.8 F Pulse Rate 79 86 87 Respiratory Rate 18 Blood Pressure 123/63 Pulse Oximetry 97 03/25/18 11:08 03/25/18 12:00 03/25/18 13:00 Temperature 97.5 F L Pulse Rate 86 84 Respiratory Rate 18 Blood Pressure 126/69 Pulse Oximetry 98 96 03/25/18 14:00 03/25/18 15:00 03/25/18 16:00 Temperature 97.6 F Pulse Rate 74 72 81 Respiratory Rate 18 Blood Pressure 139/79 Pulse Oximetry 99 03/25/18 17:33 03/25/18 17:48 03/25/18 18:00 Temperature 97.7 F Pulse Rate 86 78 81 Respiratory Rate 18 18 Blood Pressure 126/60 121/66 Pulse Oximetry 97 99 03/25/18 18:03 03/25/18 18:18 03/25/18 18:48 Temperature Pulse Rate 74 75 75 Respiratory Rate 18 18 18 Blood Pressure 139/79 139/60 142/64 H Pulse Oximetry 99 99 99 03/25/18 19:00 03/25/18 20:00 03/25/18 20:52 Temperature 97.6 F Pulse Rate 74 68 Respiratory Rate 16 Blood Pressure 126/68 Pulse Oximetry 97 96 03/25/18 21:00 03/25/18 22:00 03/25/18 23:00 Temperature 98.3 F Pulse Rate 84 82 80 Respiratory Rate 16 Blood Pressure 114/51 L Pulse Oximetry 96 03/26/18 00:00 03/26/18 01:00 03/26/18 02:00 Temperature Pulse Rate 79 73 89 Respiratory Rate Blood Pressure Pulse Oximetry 03/26/18 03:00 03/26/18 04:00 03/26/18 05:00 Temperature 98 F Pulse Rate 79 77 83 Respiratory Rate 16 Blood Pressure 107/53 L Pulse Oximetry 95 03/26/18 06:00 Temperature Pulse Rate 80 Respiratory Rate Blood Pressure Pulse Oximetry Intake & Output 03/25/18 03/26/18 03/26/18 18:59 06:59 18:59 Intake Total 1750 / 1750 1240 / 1240 Output Total 450 / 450 450 / 450 Balance 1300 / 1300 790 / 790 Intake: IV 1270 / 1270 1000 / 1000 Heparin/NS PF Inj 500 ML @ 0 20 / 20 mls/hr .ROUTE .STK-MED ONE Rx#: [id number] Heparin/D5W 25,000 U/250 mL 25, 250 / 250 000 unit In 250 ml @ Per Protocol IV.CONT TITRATE PRN Rx #:[id number] NS Inj 1,000 ML @ 100 mls/hr IV 1000 / 1000 1000 / 1000 .CONT .Q10H [facility] Rx#:[id number] Oral 480 / 480 240 / 240 Output: Urine 450 / 450 450 / 450 Other: # Voids 2 # Incontinent Voids 1 Date of Last Bowel Movement 03/25/18 # Bowel Movements 0 - Constitutional no acute distress - Routine Neck Exam Absent: JVD - Routine Respiratory Exam Present: CTA bilaterally - Routine Cardiovascular Exam Present: RRR, S1, S2, murmur. Absent: gallop Comments: II/ GIANNA RUSB. Normal S2. - Routine Abdominal Exam Present: soft, normoactive bowel sounds. Absent: tenderness, organomegaly - Routine Extremities Exam Absent: cyanosis, clubbing, edema Results 03/26/18 05:15 03/24/18 09:30 Cardiac Enzymes 03/24/18 03/24/18 03/24/18 Range/Units 09:30 15:15 21:58 AST 29 (15-37) U/L Troponin I 0.82 H* 1.13 H* D 1.73 H* D (0.02-0.05) ng/mL Coagulation 03/24/18 03/24/18 03/24/18 Range/Units 10:30 10:30 15:15 PT 10.8 (9.8-11.6) sec APTT 26.4 Cancelled 55.5 H D (24.3-30.1) sec 03/24/18 03/25/18 Range/Units 21:58 05:17 PT (9.8-11.6) sec APTT 51.3 H 50.4 H (24.3-30.1) sec Lipids 03/24/18 Range/Units 09:30 Triglycerides 134 (42-150) mg/dL Cholesterol 124 (120-200) mg/dL HDL Cholesterol 32.3 L (40.0-60.0) mg/dL Cholesterol/HDL Ratio 3.83 Ratio CBC 03/24/18 03/25/18 03/26/18 Range/Units 09:30 05:17 05:15 WBC 9.7 7.4 7.2 (4.0-11.0) th/mm3 RBC 4.79 4.56 4.19 (4.00-5.30) mil/mm3 Hgb 14.3 13.8 12.7 (11.6-15.3) gm/dL Hct 44.3 42.2 38.8 (35.0-46.0) % Plt Count 323 280 270 (150-450) th/mm3 Neut # (Auto) 6.1 (1.8-7.7) th/mm3 Lymph # (Auto) 2.3 (1.0-4.8) th/mm3 [place] # (Auto) 0.9 (0.0-0.9) th/mm3 Eos # (Auto) 0.3 (0.0-0.4) th/mm3 Baso # (Auto) 0.1 (0.0-0.2) th/mm3 Comprehensive Metabolic Panel 03/24/18 Range/Units 09:30 Sodium 141 (136-145) meq/L Potassium 4.3 (3.5-5.1) meq/L Chloride 110 H (98-107) meq/L Carbon Dioxide 19.6 L (21.0-32.0) meq/L BUN 21 H (7-18) mg/dL Creatinine 1.02 H (0.50-1.00) mg/dL Calcium 8.6 (8.5-10.1) mg/dL AST 29 (15-37) U/L ALT 21 (10-53) U/L Alkaline Phosphatase 70 (45-117) U/L Total Protein 6.9 (6.4-8.2) g/dL Albumin 2.9 L (3.4-5.0) g/dL Intake and Output 03/25/18 03/26/18 03/26/18 22:59 06:59 14:59 Intake Total 1500 / 1500 1240 / 1240 Output Total 450 / 450 450 / 450 Balance 1050 / 1050 790 / 790 Intake: IV 1020 / 1020 1000 / 1000 Heparin/NS PF Inj 500 ML @ 0 20 / 20 mls/hr .ROUTE .STK-MED ONE Rx#: [id number] NS Inj 1,000 ML @ 100 mls/hr IV 1000 / 1000 1000 / 1000 .CONT .Q10H [facility] Rx#:[id number] Oral 480 / 480 240 / 240 Output: Urine 450 / 450 450 / 450 Other: # Voids 2 # Incontinent Voids 1 Date of Last Bowel Movement 03/25/18 # Bowel Movements 0 - Imaging and Cardiology Imaging: Impressions Chest X-Ray 03/24/18 09:27 CONCLUSION: Negative chest. History of bypass. Cardiac cath: report reviewed Assessment and Plan - Assessment (1) Acute non-ST elevation myocardial infarction (NSTEMI) Code(s): I21.4 - Non-ST elevation (NSTEMI) myocardial infarction Status: Acute Plan: Stable overnight. Groin stable. Severe disease in vein graft to diagonal and at ostium of [place] RCA stented yesterday. Unfortunately DIGGS to LAD is totally occluded, not amenable to percutaneous or surgical intervention. REC continue beta mila, ARB, aspirin, Brilinta, OK to discharge late today ( patient wants to wait until tomorrow), 4 week f/u with me. (2) Hypertension Code(s): I10 - Essential (primary) hypertension Status: Chronic Plan: Stable. Normotensive. (3) Hyperlipidemia Code(s): E78.5 - Hyperlipidemia, unspecified Status: Chronic Plan: Acceptable lipid profile. Continue statin therapy. Would resume her simvastatin on discharge. - Plan Code Status: full code Discussed Condition With: patient (2) Hypertension Qualifiers: Hypertension type: essential hypertension Qualified Code(s): I10 - Essential (primary) hypertension (3) Hyperlipidemia Qualifiers: Hyperlipidemia type: mixed hyperlipidemia Qualified Code(s): E78.2 - Mixed hyperlipidemia
[2018-03-26] MEDS: Nystatin 100,000 UNITS/GM Powder 15 GM Bottle TOPICAL SCH ×4 (08:22→21:11)
[2018-03-26 11:59] LABS: Calcium 8.2 mg/dL (8.5-10.1); Potassium 3.9 meq/L (3.5-5.1)
--- NOTE | 2018-03-26 13:14 | P.DS ---
Date of admission: 03/24/18 11:19 Primary care physician: Duong Noriega III, MD Brief History from admission: 78-year-old white female being admitted with chest pain. Patient was in her usual state of health until about a month ago she began experiencing right-sided chest pain and shoulder pain. Says that is intermittent comes and goes. However it progressed over the last 24 hours to the max intensity thus prompting her to come to the emergency department. She is not able to clearly identify any exacerbating factors apart from possible exertion particularly activities involving her right arm. Reports that she woke up this morning with pain dyspnea and diaphoresis and some nausea. Called 911. In the emergency department chest x-ray and blood work were negative except for an elevated troponin at 0.8. EKG did show some ST segment changes. Cardiology was consulted and are considering a heart catheterization. Patient reports being compliant with her daily aspirin and statin. Family history significant for the patient's mother having a "blood clot in her neck" and dying from it in her late 30s. DS: Medications - Discharge Medications Prescriptions: aspirin 81 mg PO DAILY #30 tab atorvastatin 40 mg PO HS #30 tab carvedilol [Coreg] 3.125 mg PO BID #60 tab losartan 50 mg PO DAILY #30 tab ticagrelor [Brilinta] 90 mg PO BID #60 tab DS: Summary Hospital Course: Patient was admitted. Cardiology was following, performed heart catheterization and found substantial occlusion from DIGGS all the way down to LAD that was not amenable to therapeutic stenting nor surgical intervention. Patient was in shock in regards to these findings suggestive of end-stage coronary artery disease. Patient met with palliative care and hospice, at the time she agreed for DNR and was medically clear for discharge knowing the high risk of sudden cardiac . SHe verbalized understanding and was graciously accepting with her prognosis. - Time Spent with Patient Total time spent providing and/or coordinating discharge services: Less than 30 minutes - Quality: VTE Deep Vein Thrombosis/Pulmonary Embolism Present on Admission: No Exam Vital signs: Vital Signs 03/25/18 14:00 03/25/18 15:00 03/25/18 16:00 Temperature 97.6 F Pulse Rate 74 72 81 Respiratory Rate 18 Blood Pressure 139/79 Pulse Oximetry 99 03/25/18 17:33 03/25/18 17:48 03/25/18 18:00 Temperature 97.7 F Pulse Rate 86 78 81 Respiratory Rate 18 18 Blood Pressure 126/60 121/66 Pulse Oximetry 97 99 03/25/18 18:03 03/25/18 18:18 03/25/18 18:48 Temperature Pulse Rate 74 75 75 Respiratory Rate 18 18 18 Blood Pressure 139/79 139/60 142/64 H Pulse Oximetry 99 99 99 03/25/18 19:00 03/25/18 20:00 03/25/18 20:52 Temperature 97.6 F Pulse Rate 74 68 Respiratory Rate 16 Blood Pressure 126/68 Pulse Oximetry 97 96 03/25/18 21:00 03/25/18 22:00 03/25/18 23:00 Temperature 98.3 F Pulse Rate 84 82 80 Respiratory Rate 16 Blood Pressure 114/51 L Pulse Oximetry 96 03/26/18 00:00 03/26/18 01:00 03/26/18 02:00 Temperature Pulse Rate 79 73 89 Respiratory Rate Blood Pressure Pulse Oximetry 03/26/18 03:00 03/26/18 04:00 03/26/18 05:00 Temperature 98 F Pulse Rate 79 77 83 Respiratory Rate 16 Blood Pressure 107/53 L Pulse Oximetry 95 03/26/18 06:00 03/26/18 07:00 03/26/18 08:00 Temperature 97.2 F L Pulse Rate 80 95 H 85 Respiratory Rate 18 Blood Pressure 114/50 L Pulse Oximetry 95 95 03/26/18 09:00 03/26/18 10:00 03/26/18 11:00 Temperature 97.9 F Pulse Rate 82 78 94 H Respiratory Rate 18 Blood Pressure 104/46 L Pulse Oximetry 95 98 03/26/18 12:00 Temperature Pulse Rate 76 Respiratory Rate Blood Pressure Pulse Oximetry Intake & Output 03/25/18 03/26/18 03/26/18 18:59 06:59 18:59 Intake Total 1750 / 1750 1240 / 1240 Output Total 450 / 450 450 / 450 Balance 1300 / 1300 790 / 790 Intake: IV 1270 / 1270 1000 / 1000 Heparin/NS PF Inj 500 ML @ 0 20 / 20 mls/hr .ROUTE .STK-MED ONE Rx#: [id number] Heparin/D5W 25,000 U/250 mL 25, 250 / 250 000 unit In 250 ml @ Per Protocol IV.CONT TITRATE PRN Rx #:[id number] NS Inj 1,000 ML @ 100 mls/hr IV 1000 / 1000 1000 / 1000 .CONT .Q10H [facility] Rx#:[id number] Oral 480 / 480 240 / 240 Output: Urine 450 / 450 450 / 450 Other: # Voids 2 # Incontinent Voids 1 Date of Last Bowel Movement 03/25/18 # Bowel Movements 0 Narrative: Heart sounds regular rate rhythm, no murmurs Clear lungs bilaterally, unlabored breathing Results Procedures completed during hospitalization: diagnostic heart cath Labs on day of discharge: Labs from last 24 hours 03/26/18 03/26/18 11:27 05:15 WBC 7.2 RBC 4.19 Hgb 12.7 Hct 38.8 MCV 92.6 MCH 30.3 MCHC 32.7 RDW 14.5 Plt Count 270 MPV 8.1 Sodium 145 Potassium 3.9 Chloride 112 H Carbon Dioxide 23.0 Anion Gap 10 BUN 15 Creatinine 0.89 Estimated GFR 61 L Random Glucose 162 H Calcium 8.2 L - Impressions ITS Impressions Chest X-Ray 03/24/18 09:27 CONCLUSION: Negative chest. History of bypass. Discharge Plan - Discharge Disposition Patient Disposition: Discharge Home - Discharge Condition Condition: Fair - Discharge Order Discharge Orders: Discharge Order (Routine); Ordered 03/27/18 Ordered By: Edgardo Bond - Physicians Team Primary Care Provider: Duong Noriega III Attending Provider: Edgardo Bond Other Providers: Anish Gibson DO ; [facility] ; Erma Rodrigez MD
--- NOTE | 2018-03-26 14:41 | P.PN ---
Subjective Interval history: Nursing denies any deterioration since last night. Patient herself says she is in a state of "shock" after hearing that her catheterization demonstrated disease that was not amenable to stenting nor surgical intervention. Patient asks me if and when she will be safe for her to resume sexual activity. She says she is very sexually active with her current boyfriend. Says that her last sexual encounter was about a week ago and did experience enough pain for her to abort the encounter. -To this I explained to the patient that it would be very difficult to put a timeframe of safe resumption of sexual activity let alone any significant exertion. I informed her that if she was to be put on any new cardiac medications that at least 2 weeks of letting those medications take effect would be paramount before resuming any strenuous activity. Patient says that based upon her previous experience from undergoing CABG, that "God" will take when it is time. She expresses concern about her children being disappointed with her opting for a DNR status but after I revealed to her that no one has to know her CODE STATUS and that she should be the only one to decided she wholeheartedly endorses a DNR status. Physical Exam Vital signs: Vital Signs 03/25/18 15:00 03/25/18 16:00 03/25/18 17:33 Temperature 97.6 F 97.7 F Pulse Rate 72 81 86 Respiratory Rate 18 18 Blood Pressure 139/79 126/60 Pulse Oximetry 99 97 03/25/18 17:48 03/25/18 18:00 03/25/18 18:03 Temperature Pulse Rate 78 81 74 Respiratory Rate 18 18 Blood Pressure 121/66 139/79 Pulse Oximetry 99 99 03/25/18 18:18 03/25/18 18:48 03/25/18 19:00 Temperature Pulse Rate 75 75 74 Respiratory Rate 18 18 Blood Pressure 139/60 142/64 H Pulse Oximetry 99 99 03/25/18 20:00 03/25/18 20:52 03/25/18 21:00 Temperature 97.6 F Pulse Rate 68 84 Respiratory Rate 16 Blood Pressure 126/68 Pulse Oximetry 97 96 03/25/18 22:00 03/25/18 23:00 03/26/18 00:00 Temperature 98.3 F Pulse Rate 82 80 79 Respiratory Rate 16 Blood Pressure 114/51 L Pulse Oximetry 96 03/26/18 01:00 03/26/18 02:00 03/26/18 03:00 Temperature 98 F Pulse Rate 73 89 79 Respiratory Rate 16 Blood Pressure 107/53 L Pulse Oximetry 95 03/26/18 04:00 03/26/18 05:00 03/26/18 06:00 Temperature Pulse Rate 77 83 80 Respiratory Rate Blood Pressure Pulse Oximetry 03/26/18 07:00 03/26/18 08:00 03/26/18 09:00 Temperature 97.2 F L Pulse Rate 95 H 85 82 Respiratory Rate 18 Blood Pressure 114/50 L Pulse Oximetry 95 95 95 03/26/18 10:00 03/26/18 11:00 03/26/18 12:00 Temperature 97.9 F Pulse Rate 78 94 H 76 Respiratory Rate 18 Blood Pressure 104/46 L Pulse Oximetry 98 03/26/18 13:00 03/26/18 14:00 Temperature Pulse Rate 79 79 Respiratory Rate Blood Pressure Pulse Oximetry Intake & Output 03/25/18 03/26/18 03/26/18 18:59 06:59 18:59 Intake Total 1750 / 1750 1240 / 1240 Output Total 450 / 450 450 / 450 Balance 1300 / 1300 790 / 790 Intake: IV 1270 / 1270 1000 / 1000 Heparin/NS PF Inj 500 ML @ 0 20 / 20 mls/hr .ROUTE .STK-MED ONE Rx#: [id number] Heparin/D5W 25,000 U/250 mL 25, 250 / 250 000 unit In 250 ml @ Per Protocol IV.CONT TITRATE PRN Rx #:[id number] NS Inj 1,000 ML @ 100 mls/hr IV 1000 / 1000 1000 / 1000 .CONT .Q10H [facility] Rx#:[id number] Oral 480 / 480 240 / 240 Output: Urine 450 / 450 450 / 450 Other: # Voids 2 # Incontinent Voids 1 Date of Last Bowel Movement 03/25/18 # Bowel Movements 0 Narrative: Clear lung sounds bilaterally, unlabored breathing Heart sounds regular rate and rhythm AO x 3, intact insight Results - Labs CBC & Chem 7: 03/26/18 05:15 03/26/18 11:27 Laboratory Results - last 24 hr 03/26/18 03/26/18 05:15 11:27 WBC 7.2 RBC 4.19 Hgb 12.7 Hct 38.8 MCV 92.6 MCH 30.3 MCHC 32.7 RDW 14.5 Plt Count 270 MPV 8.1 Sodium 145 Potassium 3.9 Chloride 112 H Carbon Dioxide 23.0 Anion Gap 10 BUN 15 Creatinine 0.89 Estimated GFR 61 L Random Glucose 162 H Calcium 8.2 L Microbiology 03/25/18 08:30 Stool Stool Occult Blood (MARY) - Final Hemoccult positive Assessment and Plan - Plan 78-year-old white female being admitted for chest pain with possible N STEMI Chest pain Significant coronary artery disease, not amenable to stenting nor surgical intervention based upon catheterization results. We will optimize medical therapy. Pt was not taking Lipitor but rather simvastatin, not taking Coreg prior to admission per her pharmacy's review. Thus I will continue ASA, starting Brilinta, starting Coreg, and starting max dose Lipitor. Hypertension coreg, switch from losartan to lisinopril chronic systolic hf - 30-35% on echo. Switch from losartan to Lisinopril. Chronic mood/anxiety Can paroxetine Chronic incontinence Continue home Arya Gonzales Discharge Planning: Will consult palliative care to establish goals of care.
--- NOTE | 2018-03-26 17:35 | P.CONPAL ---
Consult Service: Palliative Care Requesting Physician: Edgardo Bond Reason for Consult: a. To assist with evaluation and management of symptoms including: pain, dyspnea b. To assist medical decision maker(s) with: better understanding of current medical conditions; weighing benefits/burdens of medical treatment options; making medical treatment decisions. Primary Care Provider: Duong Noriega III, MD History of Present Illness History of Present Illness: This is a 78 year old female with hx breast cancer, CAD s/p CABG, DM who presented 03/24 with right side chest pain with 1 month hx that worsened 2 days before presentation, along with SOB. She originally reported the pain was worse when she lays flat, radiates to her right neck. She had elevated troponin 0.[address] changes on EKG. Cardiology consulted. Echo 03/25 revealed EF 30-35%, diffuse global hypokinesis with dyskinetic apex involving anterior, inferior, septal, lateral chauhan, reduced IVC inspiratory collapse, and represents change from prior echo in 2012. 03/25 She had a cardiac cath and difficult angioplasty, cutting balloon angioplasty, stent ostium RCA and was found to have severe 3 vessel CAD, totally occluded let mammary artery to LAD, diseased vein graft to diagonal s/p stenting. Per cardiology disease was found that would not be amenable to further stenting or surgery, recommended medical management. She had CABGX3 2005. On my eval pt reports that she feels mildly SOB. No signs dyspnea. She denies any pain. She admits 'lymphedema' in her LLE which she has had for 6 years. She is admittedly noncompliant with her diabetes. Function/Cognitive Trajectory: Prior to hospitalization pt was living in an [facility]. She was independent with ADLs. No cognitive deficits. Review of Systems Constitutional: Reports lack of energy, Denies headache(s) Eyes: Denies blind spots Ears, Nose, Mouth, and Throat: Denies abnormal hearing, Denies nosebleed Cardiovascular: Reports shortness of breath with activity, Reports shortness of breath when lying down, Denies chest pain Respiratory: Reports shortness of breath, Reports shortness of breath with activity, Denies wheezing Gastrointestinal: Denies abdominal pain, Denies vomiting Musculoskeletal: Denies abnormal walking Skin/Breast: Denies bleeding lesions, Denies change in breast shape Neurologic: Denies abnormal speech, Denies confusion, Denies tingling/numbness/ burning sensations Psychiatric: Denies anxiety, Denies depression Hematologic/Lymphatic: Denies easy bleeding PMFSH - History History Provided By: Patient - Medical History Medical History: Medical History (Last Updated 03/24/18 @ 13:01 by Edgardo Bond MD) Breast cancer Carotid artery disease Diabetes History of hysterectomy Hyperlipemia Hypertension Uterine cancer - Surgical History Surgical History: Surgical History (Last Reviewed 03/24/18 @ 13:02 by Edgardo Bond MD) History of mastectomy Hx of CABG Hx of cholecystectomy - Family History Family History: Family History (Last Updated 03/26/18 @ 17:16 by RANDALL Posada) Mother Clot - Social History I have reviewed the patient's Social History: Yes - Tobacco History Second Hand Smoke Exposure: No Tobacco Use In Past 30 Days: No Smoking Status: Former smoker Tobacco Type: Cigarettes - Alcohol History How Often Do You Have a Drink Containing Alcohol: Monthly or less - Substance Use History Substance History: No History of Abuse - Travel History Recent Travel in the [place] Within the Last 8 Weeks: No Recent Travel Out of the Country Within the Last 8 Weeks: No - Immunization History Tetanus Immunization: >5 Years Hx Influenza Vaccine This Season: Yes Medications and Allergies Active Medications: Active Medications Aspirin (Aspirin Chew) 81 mg PO DAILY [facility] Last Admin: 03/26/18 08:23 Dose: 81 mg Atorvastatin Calcium (Lipitor) 80 mg PO HS [facility] Carvedilol (Coreg) 3.125 mg PO BID [facility] Last Admin: 03/26/18 08:22 Dose: 3.125 mg Diphenhydramine HCl (Benadryl) 50 mg PO DISC [facility] Stop: 03/29/18 08:29 Nitroglycerin/Dextrose (Nitroglycerin Drip Premix) 50 mg in 250 mls @ 0 mls/hr IV.CONT TITRATE PRN; Protocol PRN Reason: Per Protocol Last Titration: 03/24/18 16:17 Dose: 15 mcg/min, 4.5 mls/hr Sodium Chloride (Ns Inj) 1,000 mls @ 100 mls/hr IV.CONT .Q10H [facility] Last Admin: 03/26/18 16:18 Dose: Not Given Lisinopril (Prinivil) 10 mg PO DAILY [facility] Midazolam HCl (Versed Inj) 1 mg IV.PUSH DISC [facility] Stop: 09/28/18 08:29 Nystatin (Mycostatin Powder) 1 applicatio TOPICAL QID [facility] Last Admin: 03/26/18 13:55 Dose: 1 applicatio Ondansetron HCl (Zofran Odt) 4 mg PO Q6H PRN PRN Reason: NAUSEA Paroxetine HCl (Paxil) 10 mg PO DAILY [facility] Last Admin: 03/26/18 08:23 Dose: 10 mg Pom: (Toviaz 8 Mg) 0 each PO DAILY [facility] Sodium Chloride (Ns Flush) 2 ml IV.FLUSH BID [facility] Last Admin: 03/26/18 08:23 Dose: 2 ml Sodium Chloride (Ns Flush) 2 ml IV.FLUSH PRN PRN PRN Reason: FLUSH AFTER USING IV ACCESS Ticagrelor (Brilinta) 90 mg PO BID [facility] Last Admin: 03/26/18 08:22 Dose: 90 mg Allergies Allergy/AdvReac Type Severity Reaction Status Date / Time No Known Allergies Allergy Unverified 03/24/18 09:06 Home Medications Medication Instructions Recorded Confirmed Type Toviaz 8 mg PO DAILY 03/24/18 03/24/18 History losartan 25 mg PO DAILY 03/24/18 03/24/18 History paroxetine HCl 10 mg PO DAILY 03/24/18 03/24/18 History simvastatin 40 mg PO QPM 03/24/18 03/24/18 History Advance Directives Living Will: No Healthcare Surrogate: No Power of Pc Installation Engineer: No Physical Exam Vital Signs: Vital Signs - 24 hr 03/25/18 17:33 03/25/18 17:48 03/25/18 18:00 Temperature 97.7 F Pulse Rate 86 78 81 Respiratory Rate 18 18 Blood Pressure 126/60 121/66 Pulse Oximetry 97 99 03/25/18 18:03 03/25/18 18:18 03/25/18 18:48 Temperature Pulse Rate 74 75 75 Respiratory Rate 18 18 18 Blood Pressure 139/79 139/60 142/64 H Pulse Oximetry 99 99 99 03/25/18 19:00 03/25/18 20:00 03/25/18 20:52 Temperature 97.6 F Pulse Rate 74 68 Respiratory Rate 16 Blood Pressure 126/68 Pulse Oximetry 97 96 03/25/18 21:00 03/25/18 22:00 03/25/18 23:00 Temperature 98.3 F Pulse Rate 84 82 80 Respiratory Rate 16 Blood Pressure 114/51 L Pulse Oximetry 96 03/26/18 00:00 03/26/18 01:00 03/26/18 02:00 Temperature Pulse Rate 79 73 89 Respiratory Rate Blood Pressure Pulse Oximetry 03/26/18 03:00 03/26/18 04:00 03/26/18 05:00 Temperature 98 F Pulse Rate 79 77 83 Respiratory Rate 16 Blood Pressure 107/53 L Pulse Oximetry 95 03/26/18 06:00 03/26/18 07:00 03/26/18 08:00 Temperature 97.2 F L Pulse Rate 80 95 H 85 Respiratory Rate 18 Blood Pressure 114/50 L Pulse Oximetry 95 95 03/26/18 09:00 03/26/18 10:00 03/26/18 11:00 Temperature 97.9 F Pulse Rate 82 78 94 H Respiratory Rate 18 Blood Pressure 104/46 L Pulse Oximetry 95 98 03/26/18 12:00 03/26/18 13:00 03/26/18 14:00 Temperature Pulse Rate 76 79 79 Respiratory Rate Blood Pressure Pulse Oximetry 03/26/18 15:00 03/26/18 16:00 03/26/18 17:04 Temperature 98.0 F Pulse Rate 87 76 Respiratory Rate 18 Blood Pressure 98/50 L Pulse Oximetry 97 97 I&O: Intake & Output 03/24/18 03/25/18 03/26/18 03/27/18 06:59 06:59 06:59 06:59 Intake Total 480 / 480 2990 / 2990 Output Total 900 / 900 900 / 900 Balance -420 / -420 0 / 209 Weight 81.5 kg Physical Exam: CONSTITUTIONAL/GENERAL: This is an adequately nourished patient, in no apparent distress. SKIN: erythema LLE. No wounds seen anteriorly. Skin temperature appropriate. Not diaphoretic. HEAD: Atraumatic. Normocephalic. EYES: Pupils equal and round and reactive. Extraocular motions intact. No scleral icterus. No injection or drainage. Fundi not examined. ENT: Hearing grossly normal. Nose without bleeding or purulent drainage. NECK: Trachea midline. Supple, nontender. CARDIOVASCULAR: RRR, gallops, or rubs. No JVD. Peripheral pulses symmetric. RESPIRATORY/CHEST: Symmetric, unlabored respirations. Clear to auscultation. Breath sounds equal bilaterally. No wheezes, rales, or rhonchi. GASTROINTESTINAL: Abdomen soft, non-tender,obese. No hepato-splenomegaly, or palpable masses. No guarding. Bowel sounds present. MUSCULOSKELETAL: Extremities without clubbing, cyanosis. + edema LLE. No mottling or clubbing. NEUROLOGICAL: Awake and alert. Motor and sensory grossly within normal limits. Follows commands. Cognitively sharp. Moves all extremities. PSYCHIATRIC: No obvious anxiety/depression. no apparent hallucinations or other psychotic thought process. Diagnostic Tests Laboratory: Laboratory Results - last 72 hr 03/24/18 03/24/18 03/24/18 09:30 09:30 09:30 WBC 9.7 RBC 4.79 Hgb 14.3 Hct 44.3 MCV 92.5 MCH 29.9 MCHC 32.3 RDW 14.2 Plt Count 323 MPV 7.9 Neut % (Auto) 62.8 Lymph % (Auto) 23.5 [place] % (Auto) 9.1 H Eos % (Auto) 3.6 Baso % (Auto) 1.0 Neut # (Auto) 6.1 Lymph # (Auto) 2.3 [place] # (Auto) 0.9 Eos # (Auto) 0.3 Baso # (Auto) 0.1 WBC Differential . Differential Comment Auto diff final PT INR APTT Sodium 141 Potassium 4.3 Chloride 110 H Carbon Dioxide 19.6 L Anion Gap 11 BUN 21 H Creatinine 1.02 H Estimated GFR 52 L Random Glucose 129 H Calcium 8.6 Total Bilirubin 0.4 AST 29 ALT 21 Alkaline Phosphatase 70 Troponin I 0.82 H* Total Protein 6.9 Albumin 2.9 L Triglycerides 134 Cholesterol 124 LDL Cholesterol, Calc 65 HDL Cholesterol 32.3 L Cholesterol/HDL Ratio 3.83 03/24/18 03/24/18 03/24/18 10:30 10:30 15:15 WBC RBC Hgb Hct MCV MCH MCHC RDW Plt Count MPV Neut % (Auto) Lymph % (Auto) [place] % (Auto) Eos % (Auto) Baso % (Auto) Neut # (Auto) Lymph # (Auto) [place] # (Auto) Eos # (Auto) Baso # (Auto) WBC Differential Differential Comment PT 10.8 INR 1.1 APTT 26.4 Cancelled Sodium Potassium Chloride Carbon Dioxide Anion Gap BUN Creatinine Estimated GFR Random Glucose Calcium Total Bilirubin AST ALT Alkaline Phosphatase Troponin I 1.13 H* D Total Protein Albumin Triglycerides Cholesterol LDL Cholesterol, Calc HDL Cholesterol Cholesterol/HDL Ratio 03/24/18 03/24/18 03/24/18 15:15 21:58 21:58 WBC RBC Hgb Hct MCV MCH MCHC RDW Plt Count MPV Neut % (Auto) Lymph % (Auto) [place] % (Auto) Eos % (Auto) Baso % (Auto) Neut # (Auto) Lymph # (Auto) [place] # (Auto) Eos # (Auto) Baso # (Auto) WBC Differential Differential Comment PT INR APTT 55.5 H D 51.3 H Sodium Potassium Chloride Carbon Dioxide Anion Gap BUN Creatinine Estimated GFR Random Glucose Calcium Total Bilirubin AST ALT Alkaline Phosphatase Troponin I 1.73 H* D Total Protein Albumin Triglycerides Cholesterol LDL Cholesterol, Calc HDL Cholesterol Cholesterol/HDL Ratio 03/25/18 03/25/18 03/26/18 05:17 05:17 05:15 WBC 7.4 7.2 RBC 4.56 4.19 Hgb 13.8 12.7 Hct 42.2 38.8 MCV 92.7 92.6 MCH 30.2 30.3 MCHC 32.6 32.7 RDW 14.2 14.5 Plt Count 280 270 MPV 8.4 8.1 Neut % (Auto) Lymph % (Auto) [place] % (Auto) Eos % (Auto) Baso % (Auto) Neut # (Auto) Lymph # (Auto) [place] # (Auto) Eos # (Auto) Baso # (Auto) WBC Differential Differential Comment PT INR APTT 50.4 H Sodium Potassium Chloride Carbon Dioxide Anion Gap BUN Creatinine Estimated GFR Random Glucose Calcium Total Bilirubin AST ALT Alkaline Phosphatase Troponin I Total Protein Albumin Triglycerides Cholesterol LDL Cholesterol, Calc HDL Cholesterol Cholesterol/HDL Ratio 03/26/18 11:27 WBC RBC Hgb Hct MCV MCH MCHC RDW Plt Count MPV Neut % (Auto) Lymph % (Auto) [place] % (Auto) Eos % (Auto) Baso % (Auto) Neut # (Auto) Lymph # (Auto) [place] # (Auto) Eos # (Auto) Baso # (Auto) WBC Differential Differential Comment PT INR APTT Sodium 145 Potassium 3.9 Chloride 112 H Carbon Dioxide 23.0 Anion Gap 10 BUN 15 Creatinine 0.89 Estimated GFR 61 L Random Glucose 162 H Calcium 8.2 L Total Bilirubin AST ALT Alkaline Phosphatase Troponin I Total Protein Albumin Triglycerides Cholesterol LDL Cholesterol, Calc HDL Cholesterol Cholesterol/HDL Ratio Result Diagrams: 03/26/18 05:15 03/26/18 11:27 Microbiology: Microbiology 03/25/18 08:30 Stool Occult Blood (MARY) - Final Stool Hemoccult positive Imaging: ITS Impressions Chest X-Ray 03/24/18 09:27 CONCLUSION: Negative chest. History of bypass. Procedures: 03/25 cardiac cath Patient/Family Conference Present at Family Conference: patient Family Conference Location: Bedside Issues Discussed: * Palliative care role, purpose, approach * Additional medical, psychosocial, and spiritual history * Patients general health, functional status, and cognitive changes in the months leading up to the current hospitalization * Patient understanding of the current medical problems * Patient understanding of prognosis * Patients goals of care as best understood from advance directives and/or conversations and/or values * Current medical treatment options and benefits/burdens of those options * Likely scenarios comparing ongoing aggressive care with a transition to comfort measures only * decision maker * introduced hospice * code status - pt reaffirmed desire to be DNR * Questions answered to the best of my ability * Palliative care contact information provided Goals pending further discussion and pt needs to think more; likely to be comfort focused. She confirms she wants to be a DNR. She seems eager to go home and resume her life. She is agreeable to an informational hospice consult. She does not want her children to make medical decisions for her b/c she feels they would want measures more aggressive than she wishes for. Assessment and Plan - Disease Oriented Problem List (1) Acute non-ST elevation myocardial infarction (NSTEMI) (2) Hypertension (3) Hyperlipidemia (4) Coronary artery disease (5) Diabetes Pertinent Non-Medical Issues: Psychosocial: From [place]. Been in [place] for 35 years. 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 Been twice. Has 2 children who live out of state. Spiritual: Restorationism Legal: Pt is capacitated. Per [place] statutes if she becomes incapacitated proxy decision making would fall to her 2 children but she tells me she does not want her children to make medical decisions for her b/c she feels they would want measures more aggressive than she wishes for. She will further consider a decison maker. Ethical issues impacting care: none Important Contacts: Son (deaf) Jerardo Norman [phone] Prognosis: 78 year old female who presented with chest pain and SOB 03/24 and was found to have NSTEMI, CAD. s/p cardiac cath with some disease found that will not be amenable to further surgical intervention. EF 30-35%. 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 She is likely hospice appropriate should her goals be in line with comfort. Code Status: No Code DNR Plan: - LEGAL DECISION MAKER - Pt is capacitated. Per [place] statutes if she becomes incapacitated proxy decision making would fall to her 2 children but she tells me she does not want her children to make medical decisions for her b/c she feels they would want measures more aggressive than she wishes for. She will further consider a decison maker. - CODE STATUS- no code/DNR - GOALS - Goals pending further discussion and pt needs to think more; likely to be comfort focused. She confirms she wants to be a DNR. She seems eager to go home and resume her life. She is agreeable to an informational hospice consult. - SYMPTOMS - * dyspnea - 2/2 heart failure. mostly on exertion pt admits some on my eval. doesn't appear dyspneic. sat 97% on room air. no further recs at this time. medical mgmt heart failure per attending, recently started on beta mila * pain - presented with right side chest and shoulder pain. no pain on my eval. no further recs at this time. - d/w Dr Bond - Palliative care will continue to follow during hospital course as condition evolves, to assist patient/decision-maker with understanding of medical conditions, weighing benefits/burdens of treatment options, for clarification of goals of treatment. Additionally will assist with any symptoms of palliative concern Appreciation Thank you for the opportunity to participate in the care of Jayleen Emerson Wynn.
[2018-03-26 20:42] VITALS: RESP 16
[2018-03-27] MEDS ORDERED: Lisinopril 10 MG Tablet PO SCH (09:00)
[2018-03-27 09:17] VITALS: BP 119/60; TEMP 98.2
[2018-03-27 10:57] VITALS: O2SAT 96
[2018-03-27 13:14] VITALS: PULSE 69
--- NOTE | 2018-03-27 15:32 | MB ---
cc: Joseph Quintana MD DATE: 03/27/2018 CARDIOLOGY CONSULTATION REASON FOR CONSULTATION: Syncope. HISTORY OF PRESENT ILLNESS: The patient is a 78-year-old white female with a history of coronary artery disease status post recent non-ST elevation myocardial infarction with percutaneous interventions on the vein graft to the diagonal and on the inupiat right coronary, history of carotid disease, diabetes, breast cancer, hypertension, just discharged from the hospital this morning when while at home she sustained a syncopal episode. The patient had been lying down and suddenly stood up, subsequently experiencing severe lightheadedness to the point of losing consciousness for a couple of seconds. After regaining consciousness, she felt nauseated and threw up most of what she had eaten today. In addition, she was mildly diaphoretic after regaining consciousness. En route to the emergency department, she complained of mild shortness of breath, without chest discomfort, palpitations. She also denies pedal edema, paroxysmal nocturnal dyspnea, headache. PAST MEDICAL HISTORY: 1. Carotid disease, status post right carotid endarterectomy 12/2010. 2. Coronary artery disease status post bypass surgery approximately 1989. Her last heart catheterization after a non-ST elevation myocardial infarction 03/24/2018 showed mild left main disease, totally occluded proximal LAD with a totally occluded proximal left internal mammary artery to the LAD, 80% proximal left circumflex with patent vein graft to the obtuse marginal, 90% proximal lesion in the vein graft to the diagonal stented with a 3.5 mm x 18 mm Resolute [place] stent, 90% ostial right coronary lesion stented with a 3.0 mm x 12 mm Resolute [place] stent. 3. Diabetes. 4. Hyperlipidemia. 5. Hypertension. 6. History of right breast cancer with remote history of right radical mastectomy. 7. Ischemic cardiomyopathy with ejection fraction of 30%-35% by echo 03/25/2018 with segmental wall motion abnormalities involving the apex, anterior, inferior, septal and lateral chauhan. CARDIAC MEDICATIONS AT HOME: 1. Brilinta 90 mg b.i.d. 2. Aspirin 81 mg daily. 3. Losartan 50 mg daily. 4. Carvedilol 3.125 mg b.i.d. 5. Atorvastatin 40 mg at bedtime. ALLERGIES: NO KNOWN DRUG ALLERGIES. FAMILY HISTORY: Noncontributory. SOCIAL HISTORY: The patient is a former smoker. There is no history of alcohol abuse. REVIEW OF SYSTEMS: As in the history of present illness, otherwise negative or noncontributory. She also denies visual changes, unilateral weakness or numbness melena, dyspepsia, bright red blood per rectum, fevers. PHYSICAL EXAMINATION: VITAL SIGNS: Blood pressure 98/54 with a pulse of 75, respirations 18. GENERAL: She is a well-developed, well-nourished white female, in no acute distress. NECK: Jugular venous pressure is normal. Carotid pulses are 2+ bilaterally and without bruits. CHEST: Reveals clear lungs krishna. CARDIAC: She has a regular rhythm and rate with a grade 2/6 systolic ejection murmur heard at the right upper sternal border. The S2 heart sound is normal. No gallop is audible. ABDOMEN: She has a soft, nontender abdomen. Bowel sounds are present. There is no definite hepatosplenomegaly. EXTREMITIES: Reveals no clubbing, cyanosis or edema. LABORATORY DATA: Includes normal CBC, normal basic metabolic profile, except for glucose 162. IMAGING: Chest x-ray shows no acute disease. DIAGNOSTIC DATA: EKG shows sinus rhythm, anterolateral ST and T-wave abnormalities; consider ischemia, nonspecific inferior ST abnormality. IMPRESSION: Syncopal episode today, likely predominantly due to orthostatic hypotension, possibly with a component of vasovagal syncope in this 78-year-old white female with a history of coronary artery disease status post bypass surgery in the , status post recent non-ST elevation myocardial infarction and percutaneous coronary/graft intervention, history of diabetes, carotid disease, hypertension. Overall, there is no definite evidence for acute coronary syndrome. There are minimal changes in her EKG today compared to her EKG from her recent admission. In addition, she has had no recurrent angina. Cardiac enzymes are pending. Monitoring so far reveals sinus rhythm. RECOMMENDATIONS: 1. Continue her current home medications. 2. Repeat echocardiogram in about 90 days; consider AICD implantation if her ejection fraction remains less than 35%. 3. She can be discharged home in the morning if monitoring is uneventful and she remains clinically stable. MD PADDY Bowling/candis , 03:13 PM , 03:23 PM ULISSES
== END 2018-03-27 11:10 | disposition home or self-care (01) ==
LOC: NEPE 08:49 → NEDA 11:19 → NEDH 14:09 → HCIS 20:25
PROVIDERS: ADMIT Hospitalist; ATTEND Hospitalist

== ENCOUNTER 2018-03-27 12:33 | Inpatient (IN) ==
[2018-03-27] MEDS ORDERED: Sodium Chlor 0.9% Inj 250 ML IV.SIG SCH (13:00)
[2018-03-27 13:17] LABS: Baso # (Auto) 0.1 th/mm3 (0.0-0.2); Baso % (Auto) 0.6 % (0.0-2.0); Eos # (Auto) 0.3 th/mm3 (0.0-0.4); Eos % (Auto) 3.5 % (0.0-4.0); Hemoglobin 13.5 gm/dL (11.6-15.3); Lymph # (Auto) 1.5 th/mm3 (1.0-4.8); Lymph % (Auto) 15.9 % (9.0-44.0); Mean Corpuscular HGB Conc 32.3 % (32.0-36.0); Mean Corpuscular Hemoglobin 29.6 pg (27.0-34.0); Mean Corpuscular Volume 91.8 fL (80.0-100.0); Mean Platelet Volume 7.9 fL (7.0-11.0); Mono # (Auto) 0.9 th/mm3 (0.0-0.9); Mono % (Auto) 10.3 % (0.0-8.0); Neut # (Auto) 6.4 th/mm3 (1.8-7.7); Neut % (Auto) 69.7 % (16.0-70.0); Platelet Count 330 th/mm3 (150-450); Red Blood Count 4.57 mil/mm3 (4.00-5.30); Red Cell Distribution Width 14.4 % (11.6-17.2); White Blood Count 9.2 th/mm3 (4.0-11.0)
--- NOTE | 2018-03-27 13:45 | XR ---
EXAM DATE: 03/27/2018 12:39 PM EDT AGE/SEX: 78 years / Female INDICATIONS: Chest pains with pressure. CLINICAL DATA: This is the patient's initial encounter. Patient reports that signs and symptoms have been present for 1 day and indicates a pain score of 10/10. MEDICAL/SURGICAL HISTORY: Cerebrovascular disease. CABG. COMPARISON: [facility] [place], CHEST 1V SINGLE AP, 03/24/2018. . FINDINGS: A single AP view of the chest demonstrates the lungs to be symmetrically aerated without evidence of mass, infiltrate or effusion. Stable median sternotomy wires and right axillary clips. The cardiomed iastinal contours are unremarkable. Osseous structures are intact. CONCLUSION: 1. No acute abnormality or significant interval change. Electronically signed by: Wayne Sharif MD 03/27/2018 1:43 PM EDT
--- NOTE | 2018-03-27 13:46 | ED ---
HPI General Chief Complaint: Syncope Stated Complaint: Medical Time Seen by Provider: 03/27/18 12:39 Source: patient and EMS Mode of arrival: EMS Limitations: no limitations History of Present Illness HPI narrative: Patient is a 78-year-old female, past medical history significant for hypertension, hyperlipidemia, diabetes, previous pulmonary embolism, coronary artery disease with recent NSTEMI and cardiac cath approximately 3 days ago, who presents with complaint of syncope. She states that she was at home and she stood up after which she passed out and hit her head. On EMS arrival she was diaphoretic but with a normal blood pressure and was complaining mostly of shortness of breath. She was also actively vomiting what appeared to be stomach contents. They gave her 4 mg of Zofran and approximately 250 cc bolus of normal saline but patient persistently complains of lightheadedness, with shortness of breath and upper abdominal pain. She has not yet filled her post-discharge prescriptions. MD complaint: loss of consciousness and collapsed Context: standing up Injuries sustained associated with event: head Current symptoms: lightheaded, shortness of breath and nausea History: history of CAD Treatments prior to arrival: IV fluids Related Data Home Medications Medication Instructions Recorded Confirmed Toviaz 8 mg PO DAILY 03/24/18 03/27/18 paroxetine HCl 10 mg PO DAILY 03/24/18 03/24/18 Previous Rx's Medication Instructions Recorded aspirin 81 mg PO DAILY #30 tab 03/26/18 atorvastatin 40 mg PO HS #30 tab 03/26/18 carvedilol [Coreg] 3.125 mg PO BID #60 tab 03/26/18 losartan 50 mg PO DAILY #30 tab 03/26/18 ticagrelor [Brilinta] 90 mg PO BID #60 tab 03/26/18 Allergies Allergy/AdvReac Type Severity Reaction Status Date / Time No Known Allergies Allergy Verified 03/27/18 12:35 Review of Systems ROS: all other systems reviewed are negative [facility] Medical History Medical History Breast cancer (Acute) Carotid artery disease (Acute) Diabetes (Acute) History of hysterectomy (Acute) Hyperlipemia (Acute) Hypertension (Acute) Uterine cancer (Acute) Surgical History Surgical History History of mastectomy (Acute) Hx of CABG (Acute) Hx of cholecystectomy (Acute) Family History Family History Mother Clot Social History Social History Substance History: No History of Abuse Second Hand Smoke Exposure: No Smoking Status: Former smoker Tobacco Type: Cigarettes How Often Do You Have a Drink Containing Alcohol: Monthly or less Recent Travel in [facility] within the Last 8 Weeks: No Recent Out of Country Travel within the Last 8 Weeks: No Immunization History Tetanus Immunization: >5 Years Hx Influenza Vaccine This Season: Yes Exam Narrative Exam Narrative: GENERAL: Ill-appearing female SKIN: Focused skin assessment warm. Diaphoretic. HEAD: Atraumatic. Normocephalic. Contusion to right occiput EYES: Pupils equal and round. No scleral icterus. No injection or drainage. ENT: No nasal bleeding or discharge. Mucous membranes pink and moist. NECK: Trachea midline. No JVD. CARDIOVASCULAR: Regular rate and rhythm. No murmur appreciated. Intact and equal peripheral pulses. RESPIRATORY: No accessory muscle use. Clear to auscultation. Breath sounds equal bilaterally. GASTROINTESTINAL: Abdomen soft, non-tender, nondistended. Hepatic and splenic margins not palpable. MUSCULOSKELETAL: No obvious deformities. No clubbing. No cyanosis. Edema to the left lower extremity which she states is chronic and unchanged NEUROLOGICAL: Awake and alert. No obvious cranial nerve deficits. Motor grossly within normal limits. Normal sensation. Normal speech. PSYCHIATRIC: Appropriate mood and affect; insight and judgment normal. Course Reevaluation(s) Reevaluation #1: Patient states she is feeling much better and she is almost back to normal. Time: 15:10 Initial Documented Vital Signs Temperature 98.7 F 03/27/18 12:38 Pulse Rate 75 03/27/18 12:38 Respiratory Rate 18 03/27/18 12:38 Blood Pressure 119/62 03/27/18 12:38 Pulse Oximetry 96 03/27/18 12:38 Last Documented Vital Signs Temperature 98.7 F 03/27/18 12:38 Pulse Rate 75 03/27/18 12:38 Respiratory Rate 18 03/27/18 12:38 Blood Pressure 119/62 03/27/18 12:45 Pulse Oximetry 96 03/27/18 12:38 Medical Decision Making MDM Narrative Medical decision making narrative: Patient is a 78-year-old female with recent diagnosis of an STEMI and cardiac cath who presents after an episode of syncope. Her EKG is markedly abnormal and this was discussed at length with Dr. Quintana, her rim fire charger operator and the instrumentation supervisor renewable energy consultant, who did not think she was having a STEMI. He came to see her in the emergency department and recommended she be admitted for observation after her syncope. Labs showed a slightly elevated troponin which is still downtrending from her recent end STEMI. Labs are otherwise unremarkable and blood pressure has been in the 100s throughout most of her stay in the emergency department. Patient has been reevaluated several times and states she feels great and wants to go home. CT of her head was obtained which does show a subarachnoid hemorrhage. I spoke with Dr. Lewis, neurosurgeon renewable energy consultant, whom recommended CTA which the patient refused. Patient has been refusing all contrasted CTs (CTA PE protocol for her syncope and dyspnea, and later CTA head for her bleed). I spoke with both intensivists (medical and surgical), Dr. Umanzor, and eventually Dr. Nielson, who agreed to admit her to the trauma service in the intensive care unit. Medical Screen Exam Complete: Yes Emergency Medical Condition: Yes Differential Diagnosis Differential Diagnosis: Differential diagnosis includes but is not limited to dysrhythmia, congestive heart failure, acute coronary syndrome, pulmonary embolism, electrolyte abnormality. Medical Records Medical records reviewed: Yes I reviewed the patient's medical records. Lab Data Lab results reviewed: Yes I reviewed the patient's lab results. Result diagrams: 03/27/18 12:57 03/27/18 15:20 Lab Results 03/27/18 03/27/18 03/27/18 Range/Units 12:57 12:57 15:20 WBC 9.2 (4.0-11.0) th/mm3 RBC 4.57 (4.00-5.30) mil/mm3 Hgb 13.5 (11.6-15.3) gm/dL Hct 42.0 (35.0-46.0) % MCV 91.8 (80.0-100.0) fL MCH 29.6 (27.0-34.0) pg MCHC 32.3 (32.0-36.0) % RDW 14.4 (11.6-17.2) % Plt Count 330 (150-450) th/mm3 MPV 7.9 (7.0-11.0) fL Neut % (Auto) 69.7 (16.0-70.0) % Lymph % (Auto) 15.9 (9.0-44.0) % [place] % (Auto) 10.3 H (0.0-8.0) % Eos % (Auto) 3.5 (0.0-4.0) % Baso % (Auto) 0.6 (0.0-2.0) % Neut # (Auto) 6.4 (1.8-7.7) th/mm3 Lymph # (Auto) 1.5 (1.0-4.8) th/mm3 [place] # (Auto) 0.9 (0.0-0.9) th/mm3 Eos # (Auto) 0.3 (0.0-0.4) th/mm3 Baso # (Auto) 0.1 (0.0-0.2) th/mm3 WBC Differential . Differential Comment Auto diff final Sodium 146 H (136-145) meq/L Potassium 3.9 (3.5-5.1) meq/L Chloride 113 H (98-107) meq/L Carbon Dioxide 25.7 (21.0-32.0) meq/L Anion Gap 7 (5-15) meq/L BUN 14 (7-18) mg/dL Creatinine 0.97 (0.50-1.00) mg/dL Estimated GFR 56 L (>89) mL/min Random Glucose 171 H (74-106) mg/dL Calcium 8.4 L (8.5-10.1) mg/dL Magnesium 1.4 L (1.5-2.5) mg/dL Total Bilirubin 0.5 (0.2-1.0) mg/dL AST 26 (15-37) U/L ALT 19 (10-53) U/L Alkaline Phosphatase 64 (45-117) U/L Troponin I 0.70 H* D (0.02-0.05) ng/mL Total Protein 6.6 (6.4-8.2) g/dL Albumin 2.8 L (3.4-5.0) g/dL Lipase 444 H (73-393) U/L Imaging Data Attestation: I personally reviewed and interpreted this imaging study as follows : My impression: No acute cardiopulmonary process. Radiologist's impression: Chest X-Ray 03/27/18 12:39 CONCLUSION: 1. No acute abnormality or significant interval change. Head CT 03/27/18 13:46 CONCLUSION: 1. Subarachnoid hemorrhage identified in the right middle cranial fossa extending through the sylvian fissure and the right frontal subarachnoid space. 2. Trace blood identified in the right parietal convexity. 3. No evidence of significant intra-axial hematoma, edema or mass effect. 4. Right parietal cephalohematoma. 5. No evidence of acute fracture. . ECG Data EKG Prior to Arrival: No Attestation: I personally reviewed and interpreted this ECG as follows: (Sinus rhythm at a rate of 80 bpm. There is marketed ST abnormalities in the inferior and anterior leads, with depressions in 1 and aVL. This is partially similar to her EKG 3 days ago.) Prior ECG tracings: available for review Discharge Plan Discharge Disposition Patient Disposition: 30 Still Patient Discharge Condition Condition: Serious Discharge Details Diagnosis: Subarachnoid hemorrhage, CAD (coronary artery disease), Syncope and collapse Physicians Team ED Provider: Leann Salmon Primary Care Provider: Duong Noriega III Attending Provider: Francia Nielson Other Providers: Gustabo Lewis Discharge Interventions Interventions: Vital Signs Last Done: 03/27/18 12:45 Status ED Status: Admitted Patient
[2018-03-27 16:12] LABS: Alanine Aminotransferase 19 U/L (10-53); Albumin 2.8 g/dL (3.4-5.0); Alkaline Phosphatase 64 U/L (45-117); Anion Gap 7 meq/L (5-15); Aspartate Aminotransferase 26 U/L (15-37); Blood Urea Nitrogen 14 mg/dL (7-18); Calcium 8.4 mg/dL (8.5-10.1); Carbon Dioxide 25.7 meq/L (21.0-32.0); Chloride 113 meq/L (98-107); Glomerular Filtration Rate 56 mL/min (>89); Glucose,Random 171 mg/dL (74-106); Lipase 444 U/L (73-393); Potassium 3.9 meq/L (3.5-5.1); Sodium 146 meq/L (136-145); Total Protein 6.6 g/dL (6.4-8.2)
--- NOTE | 2018-03-27 16:56 | CT ---
EXAM DATE: 03/27/2018 4:21 PM EDT AGE/SEX: 78 years / Female INDICATIONS: Trauma, fall. Hit head. CLINICAL DATA: This is the patient's initial encounter. Patient reports that signs and symptoms have been present for 1 day and indicates a pain score of 4/10. MEDICAL/SURGICAL HISTORY: Cardiovascular disease. Carcinoma, uterine. Carcinoma, breast. Hyperte nsion, diabetes. Cholecystectomy. CABG. Hysterectomy. Mastectomy. RADIATION DOSE: 56.35 CTDI (mGy) COMPARISON: No prior exams available for comparison. TECHNIQUE: CT of the head without contrast. Using automated exposure control and adjustment of the mA and/or kV according to patient size, radiation dose was kept as low as reasonably achievable to ob tain optimal diagnostic quality images. DICOM format image data is available electronically for revi ew and comparison. FINDINGS: Cerebrum: Subarachnoid blood is identified in the right sylvian fissure extending superiorly into th e right frontal region. Focal areas of trace blood are also present in the right occipital lobe. Ther e is no significant parenchymal hematoma. There is no significant mass effect or edema. Posterior Fossa: The cerebellum and brainstem are intact. The 4th ventricle is midline. The cerebe llopontine angle is unremarkable. Extracranial: Focal soft tissue swelling and a small cephalohematoma is seen along the right parieta l bone. Skull: The calvaria is intact. No evidence of skull fracture. CONCLUSION: 1. Subarachnoid hemorrhage identified in the right middle cranial fossa extending through the karen n fissure and the right frontal subarachnoid space. 2. Trace blood identified in the right parietal convexity. 3. No evidence of significant intra-axial hematoma, edema or mass effect. 4. Right parietal cephalohematoma. 5. No evidence of acute fracture. . Electronically signed by: Molina Khan MD 03/27/2018 4:54 PM EDT
--- NOTE | 2018-03-27 19:19 | P.CONNS ---
History of Present Illness Service: Neurosurgery Consult date: 03/27/18 Requesting Physician: Leann Salmon Reason for Consult: Traumatic subarachnoid hemorrhage Primary Care Provider: Duong Noriega III, MD Family Provider: Duong Noriega III, MD History of Present Illness: 78-year-old female, past medical history significant for hypertension, hyperlipidemia, diabetes, previous pulmonary embolism, coronary artery disease with recent NSTEMI and cardiac cath approximately 3 days ago, who presents with complaint of syncope. She states that she was discharged home today and she was at home and she stood up after which she passed out and hit her head. On EMS arrival she was diaphoretic but with a normal blood pressure and was complaining mostly of shortness of breath. She was also actively vomiting. She complains of lightheadedness, with shortness of breath and upper abdominal pain. CT scan of the head obtained shows subarachnoid hemorrhage along the right sylvian fissure and convexity without mass-effect or midline shift. She refused CT angiogram of the brain or IV contrast administration to evaluate for any underlying aneurysm. She relates that she has been told she is very close to dying and is at peace with this given her extensive medical comorbidities and recent myocardial infarction with inability to completely recanalize the stenotic coronary vessels. She has chronic left lower extremity lymphedema with numbness for the past 6 years and no new neurologic complaints. Review of Systems Constitutional: Reports headache(s), Reports lack of energy, Reports weakness, Denies anorexia, Denies body ache(s), Denies chills, Denies daytime sleepiness, Denies excessive sweating, Denies fatigue, Denies fever(s), Denies increased appetite, Denies malaise, Denies night sweats, Denies weight gain, Denies weight loss, Denies other Eyes: Denies blind spots, Denies blurry vision, Denies bulging eyes, Denies change in vision, Denies double vision, Denies discharge, Denies dry eyes, Denies floaters, Denies irritation, Denies itchy eyes, Denies loss of vision, Denies pain, Denies requires corrective lenses, Denies sensitivity to light, Denies other Ears, Nose, Mouth, and Throat: Denies abnormal hearing, Denies bleeding gums, Denies bad breath, Denies change in voice, Denies dental pain, Denies difficulty swallowing, Denies dizziness, Denies dry mouth, Denies ear discharge , Denies ear pain, Denies facial pain, Denies headache(s), Denies hearing loss, Denies hoarseness, Denies lip swelling, Denies nosebleed, Denies mouth lesions, Denies mouth pain, Denies nasal congestion, Denies nasal discharge, Denies nasal obstruction, Denies nasal trauma, Denies neck lump, Denies neck pain, Denies nose pain, Denies pain with swallowing, Denies poor balance, Denies post nasal drip, Denies ringing in the ears, Denies sinus pain, Denies sinus pressure , Denies sore throat, Denies throat swelling, Denies tongue swelling, Denies other Cardiovascular: Reports chest pain, Reports chest pain with activity, Reports fainting, Reports foot swelling, Reports lightheadedness, Reports shortness of breath, Reports shortness of breath with activity, Denies chest pain at rest, Denies excessive sweating, Denies fast heart rate, Denies generalized swelling, Denies irregular heart rhythm, Denies leg pain with activity, Denies leg sores, Denies leg swelling, Denies radiating jaw, neck or arm pain, Denies rapid, pounding, or irregular heartbeat, Denies shortness of breath when lying down, Denies shortness of breath causing sudden awakening, Denies slow heart rate, Denies other Respiratory: Reports shortness of breath, Reports shortness of breath with activity, Denies change in phlegm color, Denies chest congestion, Denies cough, Denies coughing up blood, Denies excessive phlegm production, Denies pain on inspiration, Denies pain with cough, Denies snoring, Denies stridor, Denies wheezing, Denies other Gastrointestinal: Reports abdominal pain, Reports nausea, Reports vomiting, Denies belching, Denies black, tarry stools, Denies bloating, Denies bright, red blood in stools, Denies change in bowel habits, Denies constant urge to pass stool, Denies change in stools, Denies coffee ground vomit, Denies constipation, Denies cramping, Denies difficulty swallowing, Denies excessive passing of gas, Denies feeling full early, Denies heartburn, Denies incontinent of stools, Denies loose stools, Denies pain with swallowing, Denies vomiting blood, Denies other Genitourinary: Denies abnormal periods, Denies abnormal vaginal bleeding, Denies absent period, Denies bleeding between periods, Denies blood in urine, Denies difficulty starting urination, Denies difficulty urinating, Denies dribbling after urination, Denies frequent nighttime urination, Denies genital itching, Denies genital lesions, Denies heavy periods, Denies hot flashes, Denies light periods, Denies nipple discharge, Denies painful intercourse, Denies painful periods, Denies painful urination, Denies pelvic pain, Denies prolapse symptoms, Denies sexual problems, Denies side pain, Denies urinary incontinence, Denies urinary urgency, Denies vaginal discharge, Denies vaginal dryness, Denies vaginal odor, Denies vaginal itching, Denies other Musculoskeletal: Reports numbness (Chronic numbness in the left leg due to lymphedema), Denies abnormal walking, Denies back pain, Denies body aches, Denies decreased muscle mass, Denies deformity, Denies joint pain, Denies joint swelling, Denies limited joint movement, Denies loss of height, Denies muscle cramps, Denies muscle weakness, Denies neck pain, Denies radiating pain into limb, Denies stiffness, Denies tingling, Denies other Skin/Breast: Denies acne, Denies bleeding lesions, Denies boil, Denies breast swelling, Denies breast skin changes, Denies breast pain, Denies breast lump, Denies change in breast shape, Denies change in hair, Denies change in skin color, Denies changing lesions, Denies dry skin, Denies excessive hair growth, Denies hair loss, Denies itching, Denies lesions, Denies nail changes, Denies new lesions, Denies nipple discharge, Denies non-healing lesions, Denies redness , Denies sensitivity to light, Denies rash, Denies skin pain, Denies skin ulcer , Denies sores, Denies stretch leung, Denies unusual bruising, Denies wounds, Denies yellowing of the skin, Denies other Neurologic: Reports fainting, Reports headache(s), Reports numbness, Reports sensory deficit, Reports tingling/numbness/burning sensations, Denies abnormal hearing, Denies abnormal movements, Denies abnormal speech, Denies abnormal walking, Denies behavioral changes, Denies burning sensations, Denies confusion , Denies dizziness, Denies frequent falls, Denies lack of coordination, Denies localized weakness, Denies loss of vision, Denies memory loss, Denies other visual disturbances, Denies radiating pain, Denies restless legs, Denies convulsions, Denies seizure-like activity, Denies tingling, Denies tremor(s), Denies unsteadiness, Denies weakness, Denies other Psychiatric: Denies abnormal sleep pattern, Denies anxiety, Denies behavioral changes, Denies change in appetite, Denies change in sex drive, Denies confusion , Denies depression, Denies difficulty concentrating, Denies hearing things others do not hear, Denies hopelessness, Denies irritability, Denies lack of enjoyment, Denies memory loss, Denies mood swings, Denies panic attacks, Denies paranoia, Denies seeing things others do not see, Denies sensing things others do not sense, Denies tactile hallucinations, Denies thoughts of hurting/killing others, Denies thoughts of hurting/killing yourself, Denies other Endocrine: Denies cold intolerance, Denies excessive sweating, Denies flushing, Denies heat intolerance, Denies increased hunger, Denies increased thirst, Denies increased urination, Denies rapid, pounding, or irregular heartbeat, Denies other Hematologic/Lymphatic: Reports easy bruising, Denies easy bleeding, Denies enlarged lymph nodes, Denies other Allergic/Immunologic: Denies GI upset with certain foods, Denies hives, Denies itchy eyes, Denies lip swelling, Denies seasonal runny nose, Denies throat swelling, Denies tongue swelling, Denies wheezing, Denies other PMFSH - History History Provided By: Patient - Medical History Medical History: Medical History (Last Updated 03/27/18 @ 19:14 by Gustabo Lewis MD) Myocardial infarction Breast cancer Carotid artery disease Diabetes History of hysterectomy Hyperlipemia Hypertension Uterine cancer - Surgical History Surgical History: Surgical History (Last Updated 03/27/18 @ 19:14 by Gustabo Lewis MD) Hx of cardiac cath History of mastectomy Hx of CABG Hx of cholecystectomy - Family History Family History: Family History (Last Reviewed 03/27/18 @ 19:14 by Gustabo Lewis MD) Mother Clot - Tobacco History Second Hand Smoke Exposure: No Tobacco Use In Past 30 Days: No Smoking Status: Former smoker Tobacco Type: Cigarettes - Alcohol History How Often Do You Have a Drink Containing Alcohol: Monthly or less - Substance Use History Substance History: No History of Abuse - Travel History Recent Travel in the [place] Within the Last 8 Weeks: No Recent Travel Out of the Country Within the Last 8 Weeks: No - Immunization History Tetanus Immunization: >5 Years Hx Influenza Vaccine This Season: Yes Medications and Allergies Active Medications: Active Medications Sodium Chloride (Ns Inj) 250 mls @ 0 mls/hr IV.SIG BOLUS BRANDY Sodium Chloride (Ns Flush) 2 ml IV.FLUSH UNSCH PRN PRN Reason: FLUSH AFTER USING IV ACCESS Allergies Allergy/AdvReac Type Severity Reaction Status Date / Time No Known Allergies Allergy Verified 03/27/18 12:35 Home Medications Medication Instructions Recorded Confirmed Type Toviaz 8 mg PO DAILY 03/24/18 03/27/18 History paroxetine HCl 10 mg PO DAILY 03/24/18 03/24/18 History Exam Vital signs: Vital Signs 03/27/18 12:38 03/27/18 12:45 Temperature 98.7 F Pulse Rate 75 Respiratory Rate 18 Blood Pressure 119/62 98/54 L Blood Pressure [Left Arm] 119/62 Pulse Oximetry 96 Intake & Output 03/27/18 03/27/18 03/28/18 06:59 18:59 06:59 Weight 80.739 kg - Constitutional no acute distress, obese - Routine HEENT Exam Head: Present: normocephalic, abrasion, hematoma (Right occipital scalp hematoma ) ENT: Present: mucous membranes moist, oropharynx clear, nares patent, external ear normal - Routine Neck Exam Present: supple, full ROM - Routine Respiratory Exam Present: CTA bilaterally - Routine Cardiovascular Exam Present: RRR, S1, S2 - Routine Abdominal Exam Present: normoactive bowel sounds - Routine Extremities Exam Present: edema, full ROM (Left lower extremity chronic pitting edema) - Routine Skin Exam Present: intact - Routine Neurological Exam Present: oriented X3, CN II-XII intact, plantar reflex, moving all extremities, vision grossly intact, normal speech - Routine Psychiatric Exam Present: normal affect, normal thought process, cooperative, good insight, good judgment Results - Laboratory Findings CBC and BMP: 03/27/18 12:57 03/27/18 15:20 Abnormal lab findings: Abnormal Labs 03/27/18 03/27/18 03/27/18 12:57 12:57 15:20 [place] % (Auto) 10.3 H Sodium 146 H Chloride 113 H Estimated GFR 56 L Random Glucose 171 H Calcium 8.4 L Magnesium 1.4 L Troponin I 0.70 H* D Albumin 2.8 L Lipase 444 H - Diagnostic Findings Additional findings: Impressions Chest X-Ray 03/27/18 12:39 CONCLUSION: 1. No acute abnormality or significant interval change. Head CT 03/27/18 13:46 CONCLUSION: 1. Subarachnoid hemorrhage identified in the right middle cranial fossa extending through the sylvian fissure and the right frontal subarachnoid space. 2. Trace blood identified in the right parietal convexity. 3. No evidence of significant intra-axial hematoma, edema or mass effect. 4. Right parietal cephalohematoma. 5. No evidence of acute fracture. . Assessment and Plan - Assessment (1) TBI (traumatic brain injury) Code(s): S06.9X9A - Unspecified intracranial injury with loss of consciousness of unspecified duration, initial encounter Status: Acute (2) Acute non-ST elevation myocardial infarction (NSTEMI) Code(s): I21.4 - Non-ST elevation (NSTEMI) myocardial infarction Status: Acute (3) Subarachnoid hemorrhage Code(s): I60.9 - Nontraumatic subarachnoid hemorrhage, unspecified Status: Acute (4) Syncope and collapse Code(s): R55 - Syncope and collapse Status: Acute - Plan 78-year-old female with extensive medical comorbidities with a recent myocardial infarction status post coronary stenting 3 days ago. She had a syncopal episode and fell and struck her head with it appears to be traumatic cervical hemorrhage involving the right sylvian fissure and convexity. She refuses IV contrast demonstration for CT imaging in the brain to rule out any underlying aneurysm. Recommend observation and medical management. Syncope workup as per the medical/cardiology service. Avoid blood thinners given the intracranial hemorrhage. Follow-up CT scan of the head tomorrow morning to rule out progression of this hemorrhage. Increase diet and activity status as tolerated.
[2018-03-27] MEDS ORDERED: Morphine Sulfate Inj 2 MG/ML Vial IV.PUSH PRN (19:22)
[2018-03-27] MEDS ORDERED: Labetalol HCl Inj 100 MG/20 ML Vial IV.PUSH PRN (19:22)
[2018-03-27] MEDS ORDERED: Aluminum/Magnesium/Simethacone Susp 30 ML UDC PO PRN (19:22)
[2018-03-27] MEDS ORDERED: Potassium Chlor 20 mEq Premix 20 MEQ/100 ML PIGGYBACK IV.SIG PRN (19:22)
[2018-03-27] MEDS ORDERED: Bisacodyl 10 MG Supp RECTAL PRN (19:22)
[2018-03-27] MEDS ORDERED: Magnesium Sulfate Inj 2 GM in Sodium Chlor 0.9% Inj 96 ML IV.SIG PRN (19:22)
[2018-03-27] MEDS ORDERED: Acetaminophen 325 MG Tablet PO PRN (19:22)
[2018-03-27] MEDS ORDERED: Calcium Gluconate Inj 1 GM in Sodium Chlor 0.9% Inj 100 ML IV.SIG PRN (19:22)
--- NOTE | 2018-03-27 20:24 | ECG ---
Date Performed: 03/27/2018 Time Performed: 12:39:52 PTAGE: 78 years EKG: Sinus rhythm POSSIBLE LEFT ATRIAL ENLARGEMENT BORDERLINE RIGHT AXIS DEVIATION DIFFUSE ST CHANGES AND MODERATE T-W AVE ABNORMALITY POSSIBLE RECENT ANTERIOR IL ABNORMAL ECG PREVIOUS TRACING : 03/24/2018 20.58 Compared to previous tracing, ST-T changes more prominent DOCTOR: Celena Christine Interpretating Date/Time 03/27/2018 20:23:42
[2018-03-27] MEDS ORDERED: Zolpidem Tartrate 5 MG Tablet PO PRN (21:00)
[2018-03-27] MEDS ORDERED: Docusate Sodium Liq 100 MG/10 ML UDC NG/OG PRN (21:00)
[2018-03-27] MEDS ORDERED: Docusate Sodium 100 MG Capsule PO SCH (21:00)
[2018-03-27] MEDS: levETIRAcetam 500 MG Tablet PO SCH (21:15)
[2018-03-27] MEDS: Senna/Docusate Sodium 8.6/50 MG Tablet PO SCH (21:15)
--- NOTE | 2018-03-27 21:26 | P.HPCC ---
History of Present Illness Primary Care Physician: Duong Noriega III, MD History of Present Illness: 78 y.o female had NONSTEMI 3 weeks ago with cardiac cath-had syncope today-was brought into the ER and worked up by the ER.Patient had a CT head which shows a SAH.GCS 15 ,neuro intact,HD normal. Inpatient Certification: I certify that the inpatient services were ordered in accordance with Medicare regulations governing the order. This includes certification that hospital inpatient services are reasonable and necessary and in the case of services not specified as inpatient-only under 42 CFR 419.22(n), that they are appropriately provided as inpatient services in accordance to with the 2-midnight benchmark under 43 CFR 412.3(e) Estimated Total Length of Stay (Days): 2 Plans for Post Hospital Care: Home Review of Systems All other systems reviewed negative except as stated in HPI PMFSH - History History Provided By: Patient - Medical History Medical History: Medical History (Last Updated 03/27/18 @ 19:14 by Gustabo Lewis MD) Myocardial infarction Breast cancer Carotid artery disease Diabetes History of hysterectomy Hyperlipemia Hypertension Uterine cancer - Surgical History Surgical History: Surgical History (Last Updated 03/27/18 @ 19:14 by Gustabo Lewis MD) Hx of cardiac cath History of mastectomy Hx of CABG Hx of cholecystectomy - Family History Family History: Family History (Last Reviewed 03/27/18 @ 19:14 by Gustabo Lewis MD) Mother Clot - Tobacco History Second Hand Smoke Exposure: No Tobacco Use In Past 30 Days: No Smoking Status: Former smoker Tobacco Type: Cigarettes - Alcohol History How Often Do You Have a Drink Containing Alcohol: Monthly or less - Substance Use History Substance History: No History of Abuse - Travel History Recent Travel in the [place] Within the Last 8 Weeks: No Recent Travel Out of the Country Within the Last 8 Weeks: No - Immunization History Tetanus Immunization: >5 Years Hx Influenza Vaccine This Season: Yes Medications and Allergies Active Medications: Active Medications Acetaminophen (Tylenol) 650 mg PO Q4H PRN PRN Reason: TEMPERATURE > 101.5 F Hydrocodone Bitart/Acetaminophen ([place] 10/325) 1 tab PO Q4H PRN PRN Reason: Pain Scale 1 To 5 Al Hydrox/Mg Hydrox/Simethicone (Mag-Al Plus Susp Liq) 30 ml PO Q6H PRN PRN Reason: DYSPEPSIA Al Hydroxide/Mg Hydroxide (Milk Of Magnesia Liq) 30 ml PO Q12H PRN PRN Reason: Mild Constipation Albuterol (Albuterol Neb (Prn)) 2.5 mg NEB Q4HR NEB PRN PRN Reason: WHEEZING Bisacodyl (Dulcolax Supp) 10 mg RECTAL DAILY PRN PRN Reason: SEVERE CONSITIPATION Chlorhexidine Gluconate (Chlorhexidine 2% Cloth) 3 pack TOPICAL DAILY@0400 BRANDY Stop: 04/02/18 03:59 Chlorhexidine Gluconate (Chlorhexidine 2% Cloth) 3 pack TOPICAL DAILY@0400 PRN PRN Reason: Extra cloth needed Stop: 04/02/18 03:59 Clonidine HCl (Catapres) 0.1 mg NG/OG Q6H PRN PRN Reason: SYS BP GREATER THAN 170 MMHG Docusate Sodium (Colace Liq) 100 mg NG/OG BID PRN PRN Reason: SEE LABEL COMMENTS Docusate Sodium (Colace) 100 mg PO BID [facility] Last Admin: 03/27/18 21:15 Dose: Not Given Sodium Chloride (Ns Inj) 250 mls @ 0 mls/hr IV.SIG BOLUS BRANDY Calcium Gluconate 1 gm/ Sodium (Chloride) 110 mls @ 110 mls/hr IV.SIG UNSCH PRN PRN Reason: SEE LABEL COMMENTS Magnesium Sulfate 2 gm/ Sodium (Chloride) 100 mls @ 100 mls/hr IV.SIG UNSCH PRN PRN Reason: MAGNESIUM LESS THAN 2 Potassium Chloride (Kcl 20 Meq Premix Inj) 20 meq in 100 mls @ 50 mls/hr IV.SIG UNSCH PRN PRN Reason: POTASSIUM LESS THAN 4 Lactated Ringer's (Lr 1000 Ml Inj) 1,000 mls @ 50 mls/hr IV.CONT .Q20H [facility] Last Admin: 03/27/18 21:15 Dose: 50 mls/hr Labetalol HCl (Trandate Inj) 10 mg IV.PUSH Q1H PRN PRN Reason: SYS BP GREATER THAN 170 MMHG Lactulose (Lactulose Liq) 30 ml PO DAILY PRN PRN Reason: SEVERE CONSITIPATION Levetiracetam (Keppra) 500 mg PO BID [facility] Last Admin: 03/27/18 21:15 Dose: 500 mg Lorazepam (Ativan Inj) 1 mg IV.PUSH Q1H PRN PRN Reason: SEIZURES Morphine Sulfate (Morphine Inj) 2 mg IV.PUSH Q2H PRN PRN Reason: PAIN SCALE 6-10 OR SEVERE SOB Ondansetron HCl (Zofran Inj) 4 mg IV.PUSH Q6H PRN PRN Reason: NAUSEA OR VOMITING Pantoprazole Sodium (Protonix) 40 mg PO DAILY BRANDY Senna/Docusate Sodium (Susanne-Colace) 1 tab PO BID BRANDY Last Admin: 03/27/18 21:15 Dose: Not Given Sennosides (Senokot) 17.2 mg PO Q12H PRN PRN Reason: Moderate Constipation Sodium Chloride (Ns Flush) 2 ml IV.FLUSH UNSCH PRN PRN Reason: FLUSH AFTER USING IV ACCESS Zolpidem Tartrate (Ambien) 5 mg PO HS PRN PRN Reason: INSOMNIA Allergies Allergy/AdvReac Type Severity Reaction Status Date / Time No Known Allergies Allergy Verified 03/27/18 12:35 Home Medications Medication Instructions Recorded Confirmed Type Toviaz 8 mg PO DAILY 03/24/18 03/27/18 History paroxetine HCl 10 mg PO DAILY 03/24/18 03/24/18 History Results - Labs CBC & Chem 7: 03/27/18 12:57 03/27/18 15:20 Labs: Short CBC 03/27/18 Range/Units 12:57 WBC 9.2 (4.0-11.0) th/mm3 Hgb 13.5 (11.6-15.3) gm/dL Hct 42.0 (35.0-46.0) % Plt Count 330 (150-450) th/mm3 BMP 03/27/18 15:20 Sodium 146 H Potassium 3.9 Chloride 113 H Carbon Dioxide 25.7 BUN 14 Creatinine 0.97 Calcium 8.4 L Cardiac Enzymes 03/27/18 Range/Units 15:20 Troponin I 0.70 H* D (0.02-0.05) ng/mL Liver Function 03/27/18 Range/Units 15:20 Total Bilirubin 0.5 (0.2-1.0) mg/dL AST 26 (15-37) U/L ALT 19 (10-53) U/L Alkaline Phosphatase 64 (45-117) U/L Albumin 2.8 L (3.4-5.0) g/dL - Imaging Impressions Chest X-Ray 03/27/18 12:39 CONCLUSION: 1. No acute abnormality or significant interval change. Head CT 03/27/18 13:46 CONCLUSION: 1. Subarachnoid hemorrhage identified in the right middle cranial fossa extending through the sylvian fissure and the right frontal subarachnoid space. 2. Trace blood identified in the right parietal convexity. 3. No evidence of significant intra-axial hematoma, edema or mass effect. 4. Right parietal cephalohematoma. 5. No evidence of acute fracture. . Exam Vital signs: Vital Signs 03/27/18 12:38 03/27/18 12:45 03/27/18 16:10 Temperature 98.7 F 98.8 F Pulse Rate 75 78 Respiratory Rate 18 18 Blood Pressure 119/62 98/54 L 117/73 Blood Pressure [Left Arm] 119/62 Pulse Oximetry 96 96 03/27/18 19:44 Temperature Pulse Rate 81 Respiratory Rate 16 Blood Pressure 107/51 L Blood Pressure [Left Arm] Pulse Oximetry 96 Intake & Output 03/27/18 03/27/18 03/28/18 06:59 18:59 06:59 Weight 80.739 kg - Constitutional no acute distress - Routine HEENT Exam Head: Present: normocephalic (occipital cephalohematoma) Eye: Present: EOMI, PERRL, normal accommodation ENT: Present: mucous membranes moist, mucous membranes dry - Routine Neck Exam Present: supple, full ROM - Routine Respiratory Exam Present: CTA bilaterally - Routine Cardiovascular Exam Present: RRR - Routine Abdominal Exam Present: soft, normoactive bowel sounds - Routine Extremities Exam Present: full ROM - Routine Neurological Exam Present: alert, oriented X3, moving all extremities Caprini VTE Risk Assessment Caprini VTE Risk Assessment: Moderate/High Risk (score >= 2) (trauma) VTE Pharmacological Exception Reason: Active bleeding Caprini Risk Assessment Model: Point Value = 1 Point Value = 2 Point Value = 3 Point Value = 5 Age 41-60 Minor surgery BMI > 25 kg/m2 Swollen legs Varicose veins or History of unexplained or recurrent spontaneous Oral contraceptives or hormone replacement Sepsis (< 1 month) Serious lung disease, including pneumonia (< 1 month) Abnormal pulmonary function Acute myocardial infarction Congestive heart failure (< 1 month) History of inflammatory bowel disease Medical patient at bed rest Age 61-74 Arthroscopic surgery Major open surgery (> 45 min) Laparoscopic surgery (> 45 min) Malignancy Confined to bed (> 72 hours) Immobilizing plaster cast Central venous access Age >= 75 History of VTE Family history of VTE Factor V Leiden Prothrombin [id number] Lupus anticoagulant Anticardiolipin antibodies Elevated serum homocysteine Heparin-induced thrombocytopenia Other congenital or acquired thrombophilia Stroke (< 1 month) Elective arthroplasty Hip, pelvis, or leg fracture Acute spinal cord injury (< 1 month) Prophylaxis Regimen: Total Risk Factor Score Risk Level Prophylaxis Regimen 0-1 Low Early ambulation 2 Moderate Order ONE of the following: *Sequential Compression Device (SCD) *Heparin 5000 units SQ BID 3-4 Higher Order ONE of the following medications: *Heparin 5000 units SQ TID *Enoxaparin/Lovenox 40 mg SQ daily (WT < 150 kg, CrCl > 30 mL/min) *Enoxaparin/Lovenox 30 mg SQ daily (WT < 150 kg, CrCl > 10-29 mL/min) *Enoxaparin/Lovenox 30 mg SQ BID (WT < 150 kg, CrCl > 30 mL/min) AND/OR *Sequential Compression Device (SCD) 5 or more Highest Order ONE of the following medications: *Heparin 5000 units SQ TID (Preferred with Epidurals) *Enoxaparin/Lovenox 40 mg SQ daily (WT < 150 kg, CrCl > 30 mL/min) *Enoxaparin/Lovenox 30 mg SQ daily (WT < 150 kg, CrCl > 10-29 mL/min) *Enoxaparin/Lovenox 30 mg SQ BID (WT < 150 kg, CrCl > 30 mL/min) AND *Sequential Compression Device (SCD) Assessment and Plan - Assessment and Plan Plan: SAH gcs 15 admit ISC neuroprotection pain control repeat CT head in AM NS and cardiology aware H&P: Quality - VTE Deep Vein Thrombosis/Pulmonary Embolism Present on Admission: No
[2018-03-28 00:23] LABS: INR 1.1 Ratio
[2018-03-28] MEDS: Chlorhexidine Gluconate 2% 1 Pack (2 Cloths) TOPICAL SCH (03:49)
[2018-03-28] MEDS ORDERED: Chlorhexidine Gluconate 2% 1 Pack (2 Cloths) TOPICAL PRN (04:00)
--- NOTE | 2018-03-28 04:50 | CT ---
EXAM DATE: 03/28/2018 4:31 AM EDT AGE/SEX: 78 years / Female INDICATIONS: Trauma, head injury. Evaluate subarachnoid hemorrhage. CLINICAL DATA: This is the patient's subsequent encounter. Patient reports that signs and symptoms h ave been present for 2 days and indicates a pain score of Nonresponsive. MEDICAL/SURGICAL HISTORY: . Cardiovascular disease. Carcinoma, uterine. Carcinoma, breast. Hyperten sonny. Diabetes CABG. RADIATION DOSE: 56.35 CTDI (mGy) COMPARISON: [facility] [place], CT HEAD W/O CONTRAST, 03/27/2018. . TECHNIQUE: CT of the head without contrast. Using automated exposure control and adjustment of the mA and/or kV according to patient size, radiation dose was kept as low as reasonably achievable to ob tain optimal diagnostic quality images. DICOM format image data is available electronically for revi ew and comparison. FINDINGS: Subarachnoid hemorrhage of the right sylvian fissure and right frontal sulci again seen. Subarachnoid hemorrhage in the right parietal sulci again seen. Evolutionary changes are noted. No other signific ant interval change in these areas. Trace intraventricular hemorrhage at the dependent portion of the left lateral ventricle. No evidence of mass effect or midline shift. Ventricle size is within normal limits. No evidence of e xtra-axial fluid collection. No intracranial mass lesion. CONCLUSION: No significant interval change in right frontal/sylvian fissure subarachnoid hemorrhage and right par ietal subarachnoid hemorrhage. . Electronically signed by: Rod Herrera MD 03/28/2018 4:48 AM EDT
[2018-03-28] MEDS ORDERED: Dextrose 50% in Water 50 ML Vial IV.PUSH PRN (06:30)
--- NOTE | 2018-03-28 08:16 | P.PNCA ---
Subjective Interval history: Denies headache, CP, dyspnea, dizziness, palpitations. Medications and Allergies Active Medications: Active Medications Al Hydrox/Mg Hydrox/Simethicone (Mag-Al Plus Susp Liq) 30 ml PO Q6H PRN PRN Reason: DYSPEPSIA Al Hydroxide/Mg Hydroxide (Milk Of Magnesia Liq) 30 ml PO Q12H PRN PRN Reason: Mild Constipation Albuterol (Albuterol Neb (Prn)) 2.5 mg NEB Q4HR NEB PRN PRN Reason: WHEEZING Bisacodyl (Dulcolax Supp) 10 mg RECTAL DAILY PRN PRN Reason: SEVERE CONSITIPATION Chlorhexidine Gluconate (Chlorhexidine 2% Cloth) 3 pack TOPICAL DAILY@0400 [facility] Stop: 04/02/18 03:59 Last Admin: 03/28/18 03:49 Dose: 3 pack Chlorhexidine Gluconate (Chlorhexidine 2% Cloth) 3 pack TOPICAL DAILY@0400 PRN PRN Reason: Extra cloth needed Stop: 04/02/18 03:59 Clonidine HCl (Catapres) 0.1 mg NG/OG Q6H PRN PRN Reason: SYS BP GREATER THAN 170 MMHG Dextrose (D50w Vial) 50 ml IV.PUSH UNSCH PRN PRN Reason: PER HYPOGLYCEMIA PROTOCOL Glucagon (Glucagon Inj) 1 mg OTHER PRN PRN PRN Reason: for Hypoglycemia Protocol Sodium Chloride (Ns Inj) 250 mls @ 0 mls/hr IV.SIG BOLUS BRANDY Calcium Gluconate 1 gm/ Sodium (Chloride) 110 mls @ 110 mls/hr IV.SIG UNSCH PRN PRN Reason: SEE LABEL COMMENTS Magnesium Sulfate 2 gm/ Sodium (Chloride) 100 mls @ 100 mls/hr IV.SIG UNSCH PRN PRN Reason: MAGNESIUM LESS THAN 2 Potassium Chloride (Kcl 20 Meq Premix Inj) 20 meq in 100 mls @ 50 mls/hr IV.SIG UNSCH PRN PRN Reason: POTASSIUM LESS THAN 4 Lactated Ringer's (Lr 1000 Ml Inj) 1,000 mls @ 50 mls/hr IV.CONT .Q20H [facility] Last Admin: 03/27/18 21:15 Dose: 50 mls/hr Acetaminophen (Ofirmev Inj) 1,000 mg in 100 mls @ 400 mls/hr IV.SIG Q6H PRN PRN Reason: PAIN SCALE 1 TO 10 Insulin Human Regular (Novolin R Correctional Sugar Inj) 0 units SQ ACHS [facility]; Protocol Lactulose (Lactulose Liq) 30 ml PO DAILY PRN PRN Reason: SEVERE CONSITIPATION Levetiracetam (Keppra) 500 mg PO BID [facility] Last Admin: 03/27/18 21:15 Dose: 500 mg Ondansetron HCl (Zofran Inj) 4 mg IV.PUSH Q6H PRN PRN Reason: NAUSEA OR VOMITING Pantoprazole Sodium (Protonix) 40 mg PO DAILY [facility] Senna/Docusate Sodium (Susanne-Colace) 1 tab PO BID [facility] Last Admin: 03/27/18 21:15 Dose: Not Given Sennosides (Senokot) 17.2 mg PO Q12H PRN PRN Reason: Moderate Constipation Sodium Chloride (Ns Flush) 2 ml IV.FLUSH UNSCH PRN PRN Reason: FLUSH AFTER USING IV ACCESS Allergies Allergy/AdvReac Type Severity Reaction Status Date / Time No Known Allergies Allergy Verified 03/27/18 12:35 Home Medications Medication Instructions Recorded Confirmed Type Toviaz 8 mg PO DAILY 03/24/18 03/27/18 History paroxetine HCl 10 mg PO DAILY 03/24/18 03/24/18 History Physical Exam Vital signs: Vital Signs 03/27/18 12:38 03/27/18 12:45 03/27/18 16:10 Temperature 98.7 F 98.8 F Pulse Rate 75 78 Respiratory Rate 18 18 Blood Pressure 119/62 98/54 L 117/73 Blood Pressure [Left Arm] 119/62 Pulse Oximetry 96 96 03/27/18 19:44 03/27/18 20:30 03/27/18 22:00 Temperature 98 F Pulse Rate 81 80 86 Respiratory Rate 16 11 L Blood Pressure 107/51 L 98/48 L Blood Pressure [Left Arm] Pulse Oximetry 96 93 L 03/28/18 00:00 03/28/18 02:00 03/28/18 04:00 Temperature 98 F 98.1 F Pulse Rate 86 88 80 Respiratory Rate 19 19 Blood Pressure 116/55 L 104/58 L Blood Pressure [Left Arm] Pulse Oximetry 98 99 03/28/18 06:00 Temperature Pulse Rate 76 Respiratory Rate Blood Pressure Blood Pressure [Left Arm] Pulse Oximetry Intake & Output 09/03/28/18 03/28/18 18:59 06:59 18:59 Intake Total 60 / 60 Output Total 200 / 200 Balance -140 / -140 Weight 80.739 kg 80 kg Intake: Oral 60 / 60 Output: Urine Amount (Catheter) 200 / 200 Female External 200 / 200 Other: Date of Last Bowel Movement 03/26/18 Weight On Admission 80.739 kg - Constitutional no acute distress - Routine Neck Exam Absent: JVD - Routine Respiratory Exam Present: CTA bilaterally - Routine Cardiovascular Exam Present: RRR, S1, S2, murmur. Absent: gallop Comments: II/ GIANNA RUSB, II/ systolic murmur apex, normal S2. - Routine Abdominal Exam Present: soft, normoactive bowel sounds. Absent: tenderness, organomegaly - Routine Extremities Exam Absent: cyanosis, clubbing, edema - Urinary Catheter Management Female External Cath placed during this visit: no Results 03/27/18 12:57 03/27/18 15:20 Cardiac Enzymes 03/27/18 03/27/18 Range/Units 15:20 21:58 AST 26 (15-37) U/L Troponin I 0.70 H* D 0.68 H* (0.02-0.05) ng/mL Coagulation 03/27/18 Range/Units 23:45 PT 11.0 (9.8-11.6) sec APTT 25.0 (24.3-30.1) sec CBC 03/27/18 Range/Units 12:57 WBC 9.2 (4.0-11.0) th/mm3 RBC 4.57 (4.00-5.30) mil/mm3 Hgb 13.5 (11.6-15.3) gm/dL Hct 42.0 (35.0-46.0) % Plt Count 330 (150-450) th/mm3 Neut # (Auto) 6.4 (1.8-7.7) th/mm3 Lymph # (Auto) 1.5 (1.0-4.8) th/mm3 Dickson # (Auto) 0.9 (0.0-0.9) th/mm3 Eos # (Auto) 0.3 (0.0-0.4) th/mm3 Baso # (Auto) 0.1 (0.0-0.2) th/mm3 Comprehensive Metabolic Panel 03/27/18 Range/Units 15:20 Sodium 146 H (136-145) meq/L Potassium 3.9 (3.5-5.1) meq/L Chloride 113 H (98-107) meq/L Carbon Dioxide 25.7 (21.0-32.0) meq/L BUN 14 (7-18) mg/dL Creatinine 0.97 (0.50-1.00) mg/dL Calcium 8.4 L (8.5-10.1) mg/dL AST 26 (15-37) U/L ALT 19 (10-53) U/L Alkaline Phosphatase 64 (45-117) U/L Total Protein 6.6 (6.4-8.2) g/dL Albumin 2.8 L (3.4-5.0) g/dL Intake and Output 03/27/18 03/28/18 03/28/18 22:59 06:59 14:59 Intake Total 60 / 60 Output Total 200 / 200 Balance -140 / -140 Intake: Oral 60 / 60 Output: Urine Amount (Catheter) 200 / 200 Female External 200 / 200 Other: Date of Last Bowel Movement 03/26/18 03/26/18 Weight 80 kg 80 kg Weight On Admission 80.739 kg - Imaging and Cardiology Imaging: Impressions Chest X-Ray 03/27/18 12:39 CONCLUSION: 1. No acute abnormality or significant interval change. Head CT 03/27/18 13:46 CONCLUSION: 1. Subarachnoid hemorrhage identified in the right middle cranial fossa extending through the sylvian fissure and the right frontal subarachnoid space. 2. Trace blood identified in the right parietal convexity. 3. No evidence of significant intra-axial hematoma, edema or mass effect. 4. Right parietal cephalohematoma. 5. No evidence of acute fracture. . Head CT 03/28/18 00:00 CONCLUSION: No significant interval change in right frontal/sylvian fissure subarachnoid hemorrhage and right parietal subarachnoid hemorrhage. . Assessment and Plan - Assessment (1) Coronary artery disease Code(s): I25.10 - Atherosclerotic heart disease of [place] coronary artery without angina pectoris Status: Chronic Plan: Stable CAD status. No definite evidence for recurrent ACS status post recent NSTEMI and PCI's on vein graft to diagonal and [place] RCA. Troponin levels trending downward from 03/24/18. Unfortunately now off antiplatelet therapy due to intracranial bleed. Her risk of acute myocardial infarction and without antiplatelet therapy is high. REC resume at least baby aspirin when OK from neurosurgery standpoint, try to resume beta mila as BP's allow (2) Ischemic cardiomyopathy Code(s): I25.5 - Ischemic cardiomyopathy Status: Chronic Plan: Stable. Compensated. No CHF. BP's relatively low. Recommend try to resume carvedilol as tolerated, hold ARB until BP's better. (3) Hypertension Code(s): I10 - Essential (primary) hypertension Status: Chronic Plan: Stable. BP's low normal since admission. (4) Hyperlipidemia Code(s): E78.5 - Hyperlipidemia, unspecified Status: Chronic Plan: Recommend resume her statin. - Plan Code Status: full code Discussed Condition With: patient (1) Coronary artery disease Qualifiers: Coronary Disease-Associated Artery/Lesion type: [place] artery [place] vs. transplanted heart: [place] heart Associated angina: without angina Qualified Code(s): I25.10 - Atherosclerotic heart disease of [place] coronary artery without angina pectoris (3) Hypertension Qualifiers: Hypertension type: essential hypertension Qualified Code(s): I10 - Essential (primary) hypertension (4) Hyperlipidemia Qualifiers: Hyperlipidemia type: mixed hyperlipidemia Qualified Code(s): E78.2 - Mixed hyperlipidemia
--- NOTE | 2018-03-28 08:24 | P.NPEVAL ---
Patient History - Record/History Review Reason for Referral: The patient is a 78 year old right handed woman with a history of NONSTEMI three weeks ago with cardiac cath who was brought to the ER following syncopal episode. Head CT showed SAH in right middle cranial fossa extending through sylvian fissure and right frontal subarachnoid space. She is referred for baseline neurobehavioral status examination per trauma protocol to assess cognitive, behavioral and emotional aspects of the injury and to provide treatment recommendations. PMFSH - History History Provided By: Patient - Medical History Medical History: Medical History (Last Reviewed 03/28/18 @ 08:27 by Juan Manuel Pearson) Myocardial infarction Breast cancer Carotid artery disease Diabetes History of hysterectomy Hyperlipemia Hypertension Uterine cancer - Surgical History Surgical History: Surgical History (Last Reviewed 03/28/18 @ 08:27 by Juan Manuel Pearson) Hx of cardiac cath History of mastectomy Hx of CABG Hx of cholecystectomy - Family History Family History: Family History (Last Reviewed 03/27/18 @ 19:14 by Gustabo Lewis MD) Mother Clot - Tobacco History Second Hand Smoke Exposure: No Tobacco Use In Past 30 Days: No Smoking Status: Former smoker Tobacco Type: Cigarettes - Alcohol History How Often Do You Have a Drink Containing Alcohol: Monthly or less - Substance Use History Substance History: No History of Abuse - Travel History Recent Travel in the [place] Within the Last 8 Weeks: No Recent Travel Out of the Country Within the Last 8 Weeks: No - Immunization History Tetanus Immunization: >5 Years Hx Influenza Vaccine This Season: Yes Medications Active Medications Al Hydrox/Mg Hydrox/Simethicone (Mag-Al Plus Susp Liq) 30 ml PO Q6H PRN PRN Reason: DYSPEPSIA Al Hydroxide/Mg Hydroxide (Milk Of Magnesia Liq) 30 ml PO Q12H PRN PRN Reason: Mild Constipation Albuterol (Albuterol Neb (Prn)) 2.5 mg NEB Q4HR NEB PRN PRN Reason: WHEEZING Atorvastatin Calcium (Lipitor) 40 mg PO HS [facility] Bisacodyl (Dulcolax Supp) 10 mg RECTAL DAILY PRN PRN Reason: SEVERE CONSITIPATION Carvedilol (Coreg) 3.125 mg PO BID [facility] Chlorhexidine Gluconate (Chlorhexidine 2% Cloth) 3 pack TOPICAL DAILY@0400 [facility] Stop: 04/02/18 03:59 Last Admin: 03/28/18 03:49 Dose: 3 pack Chlorhexidine Gluconate (Chlorhexidine 2% Cloth) 3 pack TOPICAL DAILY@0400 PRN PRN Reason: Extra cloth needed Stop: 04/02/18 03:59 Clonidine HCl (Catapres) 0.1 mg NG/OG Q6H PRN PRN Reason: SYS BP GREATER THAN 170 MMHG Dextrose (D50w Vial) 50 ml IV.PUSH UNSCH PRN PRN Reason: PER HYPOGLYCEMIA PROTOCOL Glucagon (Glucagon Inj) 1 mg OTHER PRN PRN PRN Reason: for Hypoglycemia Protocol Sodium Chloride (Ns Inj) 250 mls @ 0 mls/hr IV.SIG BOLUS BRANDY Calcium Gluconate 1 gm/ Sodium (Chloride) 110 mls @ 110 mls/hr IV.SIG UNSCH PRN PRN Reason: SEE LABEL COMMENTS Magnesium Sulfate 2 gm/ Sodium (Chloride) 100 mls @ 100 mls/hr IV.SIG UNSCH PRN PRN Reason: MAGNESIUM LESS THAN 2 Potassium Chloride (Kcl 20 Meq Premix Inj) 20 meq in 100 mls @ 50 mls/hr IV.SIG UNSCH PRN PRN Reason: POTASSIUM LESS THAN 4 Lactated Ringer's (Lr 1000 Ml Inj) 1,000 mls @ 50 mls/hr IV.CONT .Q20H [facility] Last Admin: 03/27/18 21:15 Dose: 50 mls/hr Acetaminophen (Ofirmev Inj) 1,000 mg in 100 mls @ 400 mls/hr IV.SIG Q6H PRN PRN Reason: PAIN SCALE 1 TO 10 Insulin Human Regular (Novolin R Correctional Sugar Inj) 0 units SQ ACHS [facility]; Protocol Lactulose (Lactulose Liq) 30 ml PO DAILY PRN PRN Reason: SEVERE CONSITIPATION Levetiracetam (Keppra) 500 mg PO BID [facility] Last Admin: 03/27/18 21:15 Dose: 500 mg Ondansetron HCl (Zofran Inj) 4 mg IV.PUSH Q6H PRN PRN Reason: NAUSEA OR VOMITING Pantoprazole Sodium (Protonix) 40 mg PO DAILY [facility] Senna/Docusate Sodium (Susanne-Colace) 1 tab PO BID [facility] Last Admin: 03/27/18 21:15 Dose: Not Given Sennosides (Senokot) 17.2 mg PO Q12H PRN PRN Reason: Moderate Constipation Sodium Chloride (Ns Flush) 2 ml IV.FLUSH UNSCH PRN PRN Reason: FLUSH AFTER USING IV ACCESS Mental Status Assessment - Mental Status Orientation: unable to assess: Self, Place, Time, Situation Absent: Hallucinations, Delusions Adjustment/Coping Assessment - Observation The patient was sleeping during rounds and was unable to be assessed. - Goals/Team Members LTG Status: Deferred STG Status: Deferred Team Members: Neuropsychologist Behavior - Behavior Treatment Engagement: Minimal - Observation Behaviorally, the patient demonstrated no signs of agitation, impulsivity or disinhibition. There was no remarkable evidence of a formal thought disorder or psychosis. - Goals LTG Status: Deferred STG Status: Deferred - Team Members Team Members: Neuropsychologist Diagnosis/Discharge Plan Impression: 78 year old woman with SAH on the right. Disinhibition Score: 14.00 Aggression Score: 14.00 Lability Score: 14.00 Agitated Behavior Total Score: 14 Maximizing Acute Care Outcome: It is recommended that the patient be monitored for emergent behavioral impulsivity as the medical condition evolves. This patients neuropathological challenges may limit rehabilitation potential going forward, and these challenges will require specialized therapeutic skills to maximize outcome. Additionally, the patients family is experiencing ongoing issues of adjustment given the traumatic nature of the injury, and they may benefit from ongoing psychological assistance. At this point in the recovery process, the patient does have cognitive capacity as the patient appears able to understand a situation and its likely consequences, although she may have difficulties in her ability to manipulate information rationally. Cognitive capacity will be assessed throughout the recovery process. - Discharge Planning Anticipated Problems: Ongoing areas of concern will include behavioral impulsivity, lack of insight and judgment, which is expected to improve with time and treatment. Treatment Plan: This clinician will continue to follow with you throughout the course of this patients critical care treatment, and I will be available to meet with the patients family/support system to facilitate their understanding and the ongoing care of their family member. The goals of neuropsychological intervention shall be both educational and supportive to the family/support system as is deemed clinically appropriate. Thank you for the opportunity to assist in this patients care. Tashi Arias, Ph.D., ABPP Board Certified in Clinical Neuropsychology [place] [employer] [place] Licensed Psychologist #[id number]
[2018-03-28 08:35] LABS: Baso % (Auto) 0.4 % (0.0-2.0); Eos # (Auto) 0.3 th/mm3 (0.0-0.4); Hematocrit 37.9 % (35.0-46.0); Hemoglobin 12.5 gm/dL (11.6-15.3); Lymph # (Auto) 1.8 th/mm3 (1.0-4.8); Mean Corpuscular HGB Conc 32.8 % (32.0-36.0); Mean Corpuscular Volume 91.3 fL (80.0-100.0); Mean Platelet Volume 8.2 fL (7.0-11.0); Mono % (Auto) 11.8 % (0.0-8.0); Neut # (Auto) 5.2 th/mm3 (1.8-7.7); Neut % (Auto) 61.8 % (16.0-70.0); Platelet Count 304 th/mm3 (150-450); Red Blood Count 4.16 mil/mm3 (4.00-5.30); Red Cell Distribution Width 14.3 % (11.6-17.2); White Blood Count 8.4 th/mm3 (4.0-11.0)
[2018-03-28 08:57] LABS: Alanine Aminotransferase 17 U/L (10-53); Albumin 2.5 g/dL (3.4-5.0); Anion Gap 6 meq/L (5-15); Aspartate Aminotransferase 22 U/L (15-37); Blood Urea Nitrogen 12 mg/dL (7-18); Calcium 8.2 mg/dL (8.5-10.1); Carbon Dioxide 28.5 meq/L (21.0-32.0); Chloride 112 meq/L (98-107); Glomerular Filtration Rate 64 mL/min (>89); Glucose,Random 108 mg/dL (74-106); Potassium 3.7 meq/L (3.5-5.1); Sodium 146 meq/L (136-145)
[2018-03-28 08:59] LABS: Alkaline Phosphatase 59 U/L (45-117)
--- NOTE | 2018-03-28 09:47 | US ---
EXAM DATE: 03/28/2018 12:00 AM EDT AGE/SEX: 78 years / Female INDICATIONS: Syncope. CLINICAL DATA: This is the patient's initial encounter. Patient reports that signs and symptoms have been present for 2 days and indicates a pain score of 0/10. MEDICAL/SURGICAL HISTORY: Diabetes. Hypertension. Breast cancer. CAD. Hyperlipidemia. Myocardi al infarction. Uterine cancer. Hysterectomy. CABG. Cholecystectomy. Mastectomy. Cardiac catheteri zation. COMPARISON: [facility], US CAROTID ARTERIES, 01/26/2017. . VELOCITY PARAMETERS: ICA/CCA Ratio: Right 1.1 , Left 1.2 ICA: Right 115 cm/sec, Left 132 cm/sec CCA: Right 66 cm/sec, Left 112 cm/sec ECA: Right 123 cm/sec, Left 114 cm/sec Vertebral: Right 24 cm/sec antegrade, Left 87 cm/sec antegrade FINDINGS: Right Carotid: Mild arteriosclerotic plaque is visualized.The waveforms are within normal limits. Left Carotid: Mild arteriosclerotic plaque is visualized. The waveforms are within normal limits. Other: None. CONCLUSION: 1. Right Internal Carotid Artery: Mild atherosclerotic plaquing. No hemodynamically significant sten osis. 2. Left Internal Carotid Artery: Mild atherosclerotic plaquing. No hemodynamically significant steno sis. Electronically signed by: Elijah Lee MD 03/28/2018 9:45 AM EDT
[2018-03-28] MEDS: Insulin NovoLIN Regular Correctional Sugar Inj SQ SCH ×4 (10:14→22:45)
[2018-03-28] MEDS: levETIRAcetam 500 MG Tablet PO SCH ×2 (10:14→22:33)
[2018-03-28] MEDS: Senna/Docusate Sodium 8.6/50 MG Tablet PO SCH ×2 (10:14→22:33)
--- NOTE | 2018-03-28 12:07 | P.PNNS ---
Subjective Interval history: Pt denies headache, nausea, vomiting. No chest pain or sob. Lethargic but follows commands. <Leonidas Lee - Last Filed: 03/28/18 18:14> Physical Exam Vital signs: Vital Signs 03/27/18 19:44 03/27/18 20:30 03/27/18 22:00 Temperature 98 F Pulse Rate 81 80 86 Respiratory Rate 16 11 L Blood Pressure 107/51 L 98/48 L Pulse Oximetry 96 93 L 03/28/18 00:00 03/28/18 02:00 03/28/18 04:00 Temperature 98 F 98.1 F Pulse Rate 86 88 80 Respiratory Rate 19 19 Blood Pressure 116/55 L 104/58 L Pulse Oximetry 98 99 03/28/18 06:00 03/28/18 08:00 03/28/18 10:00 Temperature 98.1 F Pulse Rate 76 66 65 Respiratory Rate 17 Blood Pressure 97/48 L Pulse Oximetry 98 03/28/18 12:00 03/28/18 13:03 03/28/18 14:00 Temperature 97.6 F Pulse Rate 74 68 Respiratory Rate 26 H Blood Pressure 106/53 L Pulse Oximetry 97 97 Intake & Output 03/27/18 03/28/18 03/28/18 18:59 06:59 18:59 Intake Total 60 / 60 200 / 200 Output Total 200 / 200 Balance -140 / -140 200 / 200 Weight 80.739 kg 80 kg Intake: IV 200 / 200 Ofirmev Inj 1,000 mg In 100 ml 100 / 100 @ 400 mls/hr IV.SIG Q6H PRN Rx# :[id number] Magnesium Sulfate Inj 2 GM In 100 / 100 NS Inj 96 ML @ 100 mls/hr IV. SIG UNSCH PRN Rx#:[id number] Oral 60 / 60 Output: Urine Amount (Catheter) 200 / 200 Female External 200 / 200 Other: Date of Last Bowel Movement 03/26/18 03/26/18 Weight On Admission 80.739 kg - Urinary Catheter Management Female External Cath placed during this visit: no <Gustabo Lewis - Last Filed: 03/28/18 16:51> Vital signs: Vital Signs 03/27/18 12:38 03/27/18 12:45 03/27/18 16:10 Temperature 98.7 F 98.8 F Pulse Rate 75 78 Respiratory Rate 18 18 Blood Pressure 119/62 98/54 L 117/73 Blood Pressure [Left Arm] 119/62 Pulse Oximetry 96 96 03/27/18 19:44 03/27/18 20:30 03/27/18 22:00 Temperature 98 F Pulse Rate 81 80 86 Respiratory Rate 16 11 L Blood Pressure 107/51 L 98/48 L Blood Pressure [Left Arm] Pulse Oximetry 96 93 L 03/28/18 00:00 03/28/18 02:00 03/28/18 04:00 Temperature 98 F 98.1 F Pulse Rate 86 88 80 Respiratory Rate 19 19 Blood Pressure 116/55 L 104/58 L Blood Pressure [Left Arm] Pulse Oximetry 98 99 03/28/18 06:00 Temperature Pulse Rate 76 Respiratory Rate Blood Pressure Blood Pressure [Left Arm] Pulse Oximetry Intake & Output 03/27/18 03/28/18 03/28/18 18:59 06:59 18:59 Intake Total 60 / 60 Output Total 200 / 200 Balance -140 / -140 Weight 80.739 kg 80 kg Intake: Oral 60 / 60 Output: Urine Amount (Catheter) 200 / 200 Female External 200 / 200 Other: Date of Last Bowel Movement 03/26/18 Weight On Admission 80.739 kg - Constitutional no acute distress - Routine HEENT Exam Head: Absent: normocephalic, atraumatic Eye: Present: PERRL. Absent: conjunctival icterus ENT: Present: oropharynx clear - Routine Neck Exam Present: trachea midline - Routine Respiratory Exam Present: CTA bilaterally. Absent: respiratory distress, rhonchi, wheezes - Routine Cardiovascular Exam Present: RRR, S1, S2. Absent: murmur - Routine Abdominal Exam Present: soft, normoactive bowel sounds. Absent: distended, firm - Routine Skin Exam Absent: cyanosis, erythema - Routine Neurological Exam Present: altered mental status, moving all extremities. Absent: alert (Opens eyes to voice but prefers them closed. Follows commands. Pupils 3mm bilaterally reactive bilaterally.) - Routine Psychiatric Exam Present: cooperative. Absent: anxious, agitated - Urinary Catheter Management Female External Cath placed during this visit: no <Leonidas Lee - Last Filed: 03/28/18 18:14> Assessment and Plan - Assessment (1) TBI (traumatic brain injury) Code(s): S06.9X9A - Unspecified intracranial injury with loss of consciousness of unspecified duration, initial encounter Status: Acute (2) Acute non-ST elevation myocardial infarction (NSTEMI) Code(s): I21.4 - Non-ST elevation (NSTEMI) myocardial infarction Status: Acute (3) Subarachnoid hemorrhage Code(s): I60.9 - Nontraumatic subarachnoid hemorrhage, unspecified Status: Acute (4) Syncope and collapse Code(s): R55 - Syncope and collapse Status: Acute - Attending Attestation The exam, history, and the medical decision-making described in the above note were completed with the assistance of the mid-level provider. I reviewed and agree with the findings presented. I attest that I had a [id number] encounter with the patient on the same day, and personally performed and documented my assessment and findings in the medical record. Stable exam as well as follow-up CT scan of the head this morning. Increase diet and activity status as tolerated. <Gustabo Lewis - Last Filed: 03/28/18 16:51> - Assessment (1) Acute non-ST elevation myocardial infarction (NSTEMI) Code(s): I21.4 - Non-ST elevation (NSTEMI) myocardial infarction Status: Acute (2) Hypertension Code(s): I10 - Essential (primary) hypertension Status: Chronic Qualifiers: Hypertension type: essential hypertension Qualified Code(s): I10 - Essential (primary) hypertension (3) Hyperlipidemia Code(s): E78.5 - Hyperlipidemia, unspecified Status: Chronic Qualifiers: Hyperlipidemia type: mixed hyperlipidemia Qualified Code(s): E78.2 - Mixed hyperlipidemia (4) Coronary artery disease Code(s): I25.10 - Atherosclerotic heart disease of [place] coronary artery without angina pectoris Status: Chronic Qualifiers: Coronary Disease-Associated Artery/Lesion type: [place] artery [place] vs. transplanted heart: [place] heart Associated angina: without angina Qualified Code(s): I25.10 - Atherosclerotic heart disease of [place] coronary artery without angina pectoris (5) Diabetes Code(s): E11.9 - Type 2 diabetes mellitus without complications Status: Acute (6) Pain Code(s): R52 - Pain, unspecified Status: Acute (7) Dyspnea Code(s): R06.00 - Dyspnea, unspecified Status: Acute (8) Subarachnoid hemorrhage Code(s): I60.9 - Nontraumatic subarachnoid hemorrhage, unspecified Status: Acute - Plan 78-year-old female with extensive medical comorbidities with a recent myocardial infarction status post coronary stenting 3 days ago. She had a syncopal episode and fell and struck her head with it appears to be traumatic cervical hemorrhage involving the right sylvian fissure and convexity. She refuses IV contrast demonstration for CT imaging in the brain to rule out any underlying aneurysm. Recommend observation and medical management. Syncope workup as per the medical/cardiology service. Avoid blood thinners given the intracranial hemorrhage. Follow-up CT scan of the head was stable. Continue to increase activity with PT. Continue to monitor. <Leonidas Lee - Last Filed: 03/28/18 18:14>
--- NOTE | 2018-03-28 12:44 | P.PNCC ---
Subjective Brief History: 78-year-old female with severe CAD status post non-STEMI 3 days ago with a syncopal work which has resulted in traumatic subarachnoid hemorrhage 24 Hour Review/Hospital Course: 03/28 Patient's [place] Coma Score is 15 He is hemodynamically normal She is moving all 4 extremities Her pain is been controlled with Tylenol IV as needed Her CT scan is stable He has been seen by her olive pitter and her troponin has been trending down Is to be cleared by the neurosurgeon for antiplatelet agents Objective Vital Signs / I&O: Vital Signs 03/27/18 12:45 03/27/18 16:10 03/27/18 19:44 Temperature 98.8 F Pulse Rate 78 81 Respiratory Rate 18 16 Blood Pressure 98/54 L 117/73 107/51 L Blood Pressure [Left Arm] 119/62 Pulse Oximetry 96 96 03/27/18 20:30 03/27/18 22:00 03/28/18 00:00 Temperature 98 F 98 F Pulse Rate 80 86 86 Respiratory Rate 11 L 19 Blood Pressure 98/48 L 116/55 L Blood Pressure [Left Arm] Pulse Oximetry 93 L 98 03/28/18 02:00 03/28/18 04:00 03/28/18 06:00 Temperature 98.1 F Pulse Rate 88 80 76 Respiratory Rate 19 Blood Pressure 104/58 L Blood Pressure [Left Arm] Pulse Oximetry 99 Intake & Output 03/27/18 03/28/18 03/28/18 18:59 06:59 18:59 Intake Total 60 / 60 100 / 100 Output Total 200 / 200 Balance -140 / -140 100 / 100 Weight 80.739 kg 80 kg Intake: IV 100 / 100 Magnesium Sulfate Inj 2 GM In 100 / 100 NS Inj 96 ML @ 100 mls/hr IV. SIG UNSCH PRN Rx#:[id number] Oral 60 / 60 Output: Urine Amount (Catheter) 200 / 200 Female External 200 / 200 Other: Date of Last Bowel Movement 03/26/18 03/26/18 Weight On Admission 80.739 kg Result Diagrams: 03/28/18 07:47 03/28/18 07:47 Imaging: Impressions Chest X-Ray 03/27/18 12:39 CONCLUSION: 1. No acute abnormality or significant interval change. Head CT 03/27/18 13:46 CONCLUSION: 1. Subarachnoid hemorrhage identified in the right middle cranial fossa extending through the sylvian fissure and the right frontal subarachnoid space. 2. Trace blood identified in the right parietal convexity. 3. No evidence of significant intra-axial hematoma, edema or mass effect. 4. Right parietal cephalohematoma. 5. No evidence of acute fracture. . Carotid Doppler Study 03/28/18 00:00 CONCLUSION: 1. Right Internal Carotid Artery: Mild atherosclerotic plaquing. No hemodynamically significant stenosis. 2. Left Internal Carotid Artery: Mild atherosclerotic plaquing. No hemodynamically significant stenosis. Head CT 03/28/18 00:00 CONCLUSION: No significant interval change in right frontal/sylvian fissure subarachnoid hemorrhage and right parietal subarachnoid hemorrhage. . 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
--- NOTE | 2018-03-28 22:34 | ECG ---
Date Performed: 03/27/2018 Time Performed: 21:32:22 PTAGE: 78 years EKG: Sinus rhythm POSSIBLE LEFT ATRIAL ENLARGEMENT LOW QRS VOLTAGE IN PRECORDIAL LEADS MODERATE T-WAVE ABNORMALITY ABN ORMAL ECG PREVIOUS TRACING : 03/27/2018 12.39 Since the previous tracing, no significant change noted DOCTOR: Celena Christine Interpretating Date/Time 03/28/2018 22:32:58
[2018-03-29] MEDS: Chlorhexidine Gluconate 2% 1 Pack (2 Cloths) TOPICAL SCH (05:32)
--- NOTE | 2018-03-29 07:15 | P.PNCA ---
Subjective Interval history: Denies angina, dyspnea, dizziness, palpitations. Mild posterior headache. Slept well. Medications and Allergies Active Medications: Active Medications Al Hydrox/Mg Hydrox/Simethicone (Mag-Al Plus Susp Liq) 30 ml PO Q6H PRN PRN Reason: DYSPEPSIA Al Hydroxide/Mg Hydroxide (Milk Of Magnesia Liq) 30 ml PO Q12H PRN PRN Reason: Mild Constipation Albuterol (Albuterol Neb (Prn)) 2.5 mg NEB Q4HR NEB PRN PRN Reason: WHEEZING Atorvastatin Calcium (Lipitor) 40 mg PO HS [facility] Last Admin: 03/28/18 22:33 Dose: 40 mg Bisacodyl (Dulcolax Supp) 10 mg RECTAL DAILY PRN PRN Reason: SEVERE CONSITIPATION Carvedilol (Coreg) 3.125 mg PO BID [facility] Last Admin: 03/28/18 22:33 Dose: 3.125 mg Chlorhexidine Gluconate (Chlorhexidine 2% Cloth) 3 pack TOPICAL DAILY@0400 [facility] Stop: 04/02/18 03:59 Last Admin: 03/29/18 05:32 Dose: Not Given Chlorhexidine Gluconate (Chlorhexidine 2% Cloth) 3 pack TOPICAL DAILY@0400 PRN PRN Reason: Extra cloth needed Stop: 04/02/18 03:59 Clonidine HCl (Catapres) 0.1 mg NG/OG Q6H PRN PRN Reason: SYS BP GREATER THAN 170 MMHG Dextrose (D50w Vial) 50 ml IV.PUSH UNSCH PRN PRN Reason: PER HYPOGLYCEMIA PROTOCOL Glucagon (Glucagon Inj) 1 mg OTHER PRN PRN PRN Reason: for Hypoglycemia Protocol Sodium Chloride (Ns Inj) 250 mls @ 0 mls/hr IV.SIG BOLUS [facility] Calcium Gluconate 1 gm/ Sodium (Chloride) 110 mls @ 110 mls/hr IV.SIG UNSCH PRN PRN Reason: SEE LABEL COMMENTS Magnesium Sulfate 2 gm/ Sodium (Chloride) 100 mls @ 100 mls/hr IV.SIG UNSCH PRN PRN Reason: MAGNESIUM LESS THAN 2 Last Infusion: 03/28/18 11:30 Dose: Infused Potassium Chloride (Kcl 20 Meq Premix Inj) 20 meq in 100 mls @ 50 mls/hr IV.SIG UNSCH PRN PRN Reason: POTASSIUM LESS THAN 4 Lactated Ringer's (Lr 1000 Ml Inj) 1,000 mls @ 50 mls/hr IV.CONT .Q20H [facility] Last Admin: 03/28/18 18:04 Dose: 50 mls/hr Acetaminophen (Ofirmev Inj) 1,000 mg in 100 mls @ 400 mls/hr IV.SIG Q6H PRN PRN Reason: PAIN SCALE 1 TO 10 Last Infusion: 03/28/18 13:40 Dose: Infused Insulin Human Regular (Novolin R Correctional Sugar Inj) 0 units SQ ACHS [facility]; Protocol Last Admin: 03/28/18 22:45 Dose: Not Given Lactulose (Lactulose Liq) 30 ml PO DAILY PRN PRN Reason: SEVERE CONSITIPATION Levetiracetam (Keppra) 500 mg PO BID [facility] Last Admin: 03/28/18 22:33 Dose: 500 mg Ondansetron HCl (Zofran Inj) 4 mg IV.PUSH Q6H PRN PRN Reason: NAUSEA OR VOMITING Pantoprazole Sodium (Protonix) 40 mg PO DAILY [facility] Last Admin: 03/28/18 10:14 Dose: 40 mg Senna/Docusate Sodium (Susanne-Colace) 1 tab PO BID [facility] Last Admin: 03/28/18 22:33 Dose: 1 tab Sennosides (Senokot) 17.2 mg PO Q12H PRN PRN Reason: Moderate Constipation Sodium Chloride (Ns Flush) 2 ml IV.FLUSH UNSCH PRN PRN Reason: FLUSH AFTER USING IV ACCESS Allergies Allergy/AdvReac Type Severity Reaction Status Date / Time No Known Allergies Allergy Verified 03/27/18 12:35 Home Medications Medication Instructions Recorded Confirmed Type Toviaz 8 mg PO DAILY 03/24/18 03/27/18 History paroxetine HCl 10 mg PO DAILY 03/24/18 03/24/18 History Physical Exam Vital signs: Vital Signs 03/28/18 08:00 03/28/18 10:00 03/28/18 12:00 Temperature 98.1 F 97.6 F Pulse Rate 66 65 74 Respiratory Rate 17 26 H Blood Pressure 97/48 L 106/53 L Pulse Oximetry 98 97 03/28/18 13:03 03/28/18 14:00 03/28/18 16:00 Temperature 98.3 F Pulse Rate 68 62 Respiratory Rate 13 Blood Pressure 109/54 L Pulse Oximetry 97 95 09/27/18 18:00 03/28/18 20:00 03/29/18 00:00 Temperature 97.5 F L 97.5 F L Pulse Rate 60 68 68 Respiratory Rate 20 16 Blood Pressure 107/56 L 133/60 Pulse Oximetry 95 92 L 03/29/18 02:00 03/29/18 04:00 03/29/18 06:00 Temperature Pulse Rate 65 63 63 Respiratory Rate 15 Blood Pressure 115/58 L Pulse Oximetry 92 L Intake & Output 03/28/18 03/29/18 03/29/18 18:59 06:59 18:59 Intake Total 1680 / 1680 480 / 480 Output Total 600 / 600 400 / 400 Balance 1080 / 1080 80 / 80 Weight 82.7 kg Intake: IV 1200 / 1200 LR 1000 mL Inj 1,000 ML @ 50 1000 / 1000 mls/hr IV.CONT .Q20H [facility] Rx#: [id number] Ofirmev Inj 1,000 mg In 100 ml 100 / 100 @ 400 mls/hr IV.SIG Q6H PRN Rx# :[id number] Magnesium Sulfate Inj 2 GM In 100 / 100 NS Inj 96 ML @ 100 mls/hr IV. SIG UNSCH PRN Rx#:[id number] Oral 480 / 480 480 / 480 Output: Urine 400 / 400 Urine Amount (Catheter) 200 / 200 400 / 400 Female External 200 / 200 400 / 400 Other: Date of Last Bowel Movement 03/26/18 03/26/18 - Constitutional no acute distress - Routine Neck Exam Absent: JVD - Routine Respiratory Exam Present: CTA bilaterally - Routine Cardiovascular Exam Present: RRR, S1, S2, murmur. Absent: gallop Comments: II/ GIANNA RUSB, II/ systolic murmur apex. Normal S2. - Routine Abdominal Exam Present: soft, normoactive bowel sounds. Absent: tenderness, organomegaly - Routine Extremities Exam Absent: cyanosis, clubbing, edema - Urinary Catheter Management Female External Cath placed during this visit: no Results 03/28/18 07:47 03/28/18 07:47 Cardiac Enzymes 03/27/18 03/27/18 03/28/18 Range/Units 15:20 21:58 07:47 AST 26 22 (15-37) U/L Troponin I 0.70 H* D 0.68 H* (0.02-0.05) ng/mL Coagulation 03/27/18 Range/Units 23:45 PT 11.0 (9.8-11.6) sec APTT 25.0 (24.3-30.1) sec CBC 03/27/18 03/28/18 Range/Units 12:57 07:47 WBC 9.2 8.4 (4.0-11.0) th/mm3 RBC 4.57 4.16 (4.00-5.30) mil/mm3 Hgb 13.5 12.5 (11.6-15.3) gm/dL Hct 42.0 37.9 (35.0-46.0) % Plt Count 330 304 (150-450) th/mm3 Neut # (Auto) 6.4 5.2 (1.8-7.7) th/mm3 Lymph # (Auto) 1.5 1.8 (1.0-4.8) th/mm3 [place] # (Auto) 0.9 1.0 H (0.0-0.9) th/mm3 Eos # (Auto) 0.3 0.3 (0.0-0.4) th/mm3 Baso # (Auto) 0.1 0.0 (0.0-0.2) th/mm3 Comprehensive Metabolic Panel 03/27/18 03/28/18 Range/Units 15:20 07:47 Sodium 146 H 146 H (136-145) meq/L Potassium 3.9 3.7 (3.5-5.1) meq/L Chloride 113 H 112 H (98-107) meq/L Carbon Dioxide 25.7 28.5 (21.0-32.0) meq/L BUN 14 12 (7-18) mg/dL Creatinine 0.97 0.86 (0.50-1.00) mg/dL Calcium 8.4 L 8.2 L (8.5-10.1) mg/dL AST 26 22 (15-37) U/L ALT 19 17 (10-53) U/L Alkaline Phosphatase 64 59 (45-117) U/L Total Protein 6.6 6.0 L D (6.4-8.2) g/dL Albumin 2.8 L 2.5 L (3.4-5.0) g/dL Intake and Output 03/28/18 03/29/18 03/29/18 22:59 06:59 14:59 Intake Total 1480 / 1480 480 / 480 Output Total 600 / 600 400 / 400 Balance 880 / 880 80 / 80 Intake: IV 1000 / 1000 LR 1000 mL Inj 1,000 ML @ 50 1000 / 1000 mls/hr IV.CONT .Q20H [facility] Rx#: [id number] Oral 480 / 480 480 / 480 Output: Urine 400 / 400 Urine Amount (Catheter) 200 / 200 400 / 400 Female External 200 / 200 400 / 400 Other: Date of Last Bowel Movement 03/26/18 03/26/18 Weight 82.7 kg - Imaging and Cardiology Imaging: Impressions Chest X-Ray 03/27/18 12:39 CONCLUSION: 1. No acute abnormality or significant interval change. Head CT 03/27/18 13:46 CONCLUSION: 1. Subarachnoid hemorrhage identified in the right middle cranial fossa extending through the sylvian fissure and the right frontal subarachnoid space. 2. Trace blood identified in the right parietal convexity. 3. No evidence of significant intra-axial hematoma, edema or mass effect. 4. Right parietal cephalohematoma. 5. No evidence of acute fracture. . Carotid Doppler Study 03/28/18 00:00 CONCLUSION: 1. Right Internal Carotid Artery: Mild atherosclerotic plaquing. No hemodynamically significant stenosis. 2. Left Internal Carotid Artery: Mild atherosclerotic plaquing. No hemodynamically significant stenosis. Head CT 03/28/18 00:00 CONCLUSION: No significant interval change in right frontal/sylvian fissure subarachnoid hemorrhage and right parietal subarachnoid hemorrhage. . Assessment and Plan - Assessment (1) Coronary artery disease Code(s): I25.10 - Atherosclerotic heart disease of [place] coronary artery without angina pectoris Status: Chronic Plan: Stable CAD status. No definite evidence for recurrent ACS status post recent NSTEMI and PCI's on vein graft to diagonal and [place] RCA. Troponin levels this admission trending downward from 03/24/18. Unfortunately now off antiplatelet therapy due to intracranial bleed. Her risk of acute myocardial infarction and without antiplatelet therapy is high. REC resume at least baby aspirin when OK from neurosurgery standpoint, continue beta mila, resume Losartan as BP's allow; not much else to offer from cardiac standpoint (2) Ischemic cardiomyopathy Code(s): I25.5 - Ischemic cardiomyopathy Status: Chronic Plan: Stable. Compensated. No CHF. BP's relatively low. Recommend continue carvedilol as tolerated, resume ARB. (3) Hypertension Code(s): I10 - Essential (primary) hypertension Status: Chronic Plan: Stable. Normotensive. (4) Hyperlipidemia Code(s): E78.5 - Hyperlipidemia, unspecified Status: Chronic Plan: Continue statin therapy. Recent lipid profile acceptable. - Plan Code Status: No Code Discussed Condition With: patient and son (1) Coronary artery disease Qualifiers: Coronary Disease-Associated Artery/Lesion type: [place] artery [place] vs. transplanted heart: [place] heart Associated angina: without angina Qualified Code(s): I25.10 - Atherosclerotic heart disease of [place] coronary artery without angina pectoris (3) Hypertension Qualifiers: Hypertension type: essential hypertension Qualified Code(s): I10 - Essential (primary) hypertension (4) Hyperlipidemia Qualifiers: Hyperlipidemia type: mixed hyperlipidemia Qualified Code(s): E78.2 - Mixed hyperlipidemia
--- NOTE | 2018-03-29 08:27 | P.PNNPSY ---
- Behavior Intact: Impulsive/agitated - Psychosocial Intact: Psychosocial, Family/other adjustment, Realistic expectation - Progress Notes/Response to Treatment Contents of Sessions: Adjustment, Level of consciousness Time with Patient: 30 minutes Premorbid Psychological Status: Premorbid Cognitive, Emotional and Behavioral Status: Stable. The patient has high school years of education and is retired from work force. The patient has no prior psychiatric difficulties, as described above. Substance abuse history is unremarkable. Behavioral Reactions of Patient and Family/Support System: Stable. The patients family is experiencing ongoing issues of adjustment given the nature of the injury, and this aspect of recovery will require ongoing monitoring. Emotional/Behavioral Status of Patient and Family/Support System: Stable. Pertinent issues, if appropriate to this patients clinical care, are described in detail above. Maximizing Acute Care Outcome: It is recommended that the patient be monitored for emergent behavioral impulsivity as the medical condition evolves. This patients neuropathological challenges may limit rehabilitation potential going forward, and these challenges will require specialized therapeutic skills to maximize outcome. Additionally, the patients family is experiencing ongoing issues of adjustment given the traumatic nature of the injury, and they may benefit from ongoing psychological assistance. At this point in the recovery process, the patient does have cognitive capacity as the patient appears able to understand a situation and its likely consequences, although she may have difficulties in her ability to manipulate information rationally. Cognitive capacity will be assessed throughout the recovery process. Anticipated Problems: Ongoing areas of concern will include behavioral impulsivity, lack of insight and judgment, which is expected to improve with time and treatment. Treatment Plan: This clinician will continue to follow with you throughout the course of this patients critical care treatment, and I will be available to meet with the patients family/support system to facilitate their understanding and the ongoing care of their family member. The goals of neuropsychological intervention shall be both educational and supportive to the family/support system as is deemed clinically appropriate. [place] COG Scale: Level VII Disinhibition Score: 14.00 Aggression Score: 14.00 Lability Score: 14.00 Agitated Behavior Total Score: 14 Impression: 78 year old woman with SAH on the right. Progress Note Narrative: PTD 2. No issues of agitation/restlessness. ABS = 14 (14,14,14). She is [place] -VII. She will be transferred to medicine. I will sign off when trauma signs off.
--- NOTE | 2018-03-29 08:41 | P.PN ---
Subjective Interval history: Follow-up intracranial bleed/non ST elevation DC status post stent placement March 29, 2018-patient seen and examined, complains of head pain however denies any significant headaches. Denies any shortness of breath. Family by the bedside. pear picker present due to patient's son who is deaf. Physical Exam Vital signs: Vital Signs 03/28/18 10:00 03/28/18 12:00 03/28/18 13:03 Temperature 97.6 F Pulse Rate 65 74 Respiratory Rate 26 H Blood Pressure 106/53 L Pulse Oximetry 97 97 03/28/18 14:00 03/28/18 16:00 03/28/18 18:00 Temperature 98.3 F Pulse Rate 68 62 60 Respiratory Rate 13 Blood Pressure 109/54 L Pulse Oximetry 95 03/28/18 20:00 03/29/18 00:00 03/29/18 02:00 Temperature 97.5 F L 97.5 F L Pulse Rate 68 68 65 Respiratory Rate 20 16 Blood Pressure 107/56 L 133/60 Pulse Oximetry 95 92 L 03/29/18 04:00 03/29/18 06:00 Temperature Pulse Rate 63 63 Respiratory Rate 15 Blood Pressure 115/58 L Pulse Oximetry 92 L Intake & Output 03/28/18 03/29/18 03/29/18 18:59 06:59 18:59 Intake Total 1680 / 1680 480 / 480 Output Total 600 / 600 400 / 400 Balance 1080 / 1080 80 / 80 Weight 82.7 kg Intake: IV 1200 / 1200 LR 1000 mL Inj 1,000 ML @ 50 1000 / 1000 mls/hr IV.CONT .Q20H [facility] Rx#: [id number] Ofirmev Inj 1,000 mg In 100 ml 100 / 100 @ 400 mls/hr IV.SIG Q6H PRN Rx# :[id number] Magnesium Sulfate Inj 2 GM In 100 / 100 NS Inj 96 ML @ 100 mls/hr IV. SIG UNSCH PRN Rx#:[id number] Oral 480 / 480 480 / 480 Output: Urine 400 / 400 Urine Amount (Catheter) 200 / 200 400 / 400 Female External 200 / 200 400 / 400 Other: Date of Last Bowel Movement 03/26/18 03/26/18 Narrative: GENERAL: NAD SKIN: Warm and dry. HEAD: Normocephalic. EYES: No scleral icterus. No injection or drainage. NECK: Supple, trachea midline. No JVD or lymphadenopathy. CARDIOVASCULAR: Regular rate and rhythm without murmurs, gallops, or rubs. RESPIRATORY: Breath sounds equal bilaterally. No accessory muscle use. GASTROINTESTINAL: Abdomen soft, non-tender, nondistended. MUSCULOSKELETAL: No cyanosis, or edema. BACK: Nontender without obvious deformity. No CVA tenderness. - Urinary Catheter Management Female External Cath placed during this visit: no Results - Labs CBC & Chem 7: 03/28/18 07:47 03/28/18 07:47 Laboratory Results - last 24 hr 03/28/18 03/28/18 03/28/18 07:47 12:34 14:00 Sodium 146 H Potassium 3.7 Chloride 112 H Carbon Dioxide 28.5 Anion Gap 6 BUN 12 Creatinine 0.86 Estimated GFR 64 L POC Glucose 175 H Random Glucose 108 H Calcium 8.2 L Magnesium 2.3 D Total Bilirubin 0.4 AST 22 ALT 17 Alkaline Phosphatase 59 Total Protein 6.0 L D Albumin 2.5 L 03/28/18 03/28/18 17:38 22:35 Sodium Potassium Chloride Carbon Dioxide Anion Gap BUN Creatinine Estimated GFR POC Glucose 117 H 128 H Random Glucose Calcium Magnesium Total Bilirubin AST ALT Alkaline Phosphatase Total Protein Albumin - Imaging Impressions Carotid Doppler Study 03/28/18 00:00 CONCLUSION: 1. Right Internal Carotid Artery: Mild atherosclerotic plaquing. No hemodynamically significant stenosis. 2. Left Internal Carotid Artery: Mild atherosclerotic plaquing. No hemodynamically significant stenosis. Assessment and Plan - Assessment (1) Acute non-ST elevation myocardial infarction (NSTEMI) Code(s): I21.4 - Non-ST elevation (NSTEMI) myocardial infarction Status: Acute (2) Subarachnoid hemorrhage Code(s): I60.9 - Nontraumatic subarachnoid hemorrhage, unspecified Status: Acute - Plan 78-year-old female with Intracranial hemorrhage Management per neurosurgery Repeat head CT stable PT to treat and eval Non-ST elevation DC Status post left heart catheterization with PCI stent x3 Currently on Statin, Coreg, Cozaar Resume aspirin if okay with neurosurgery Ischemic cardiomyopathy Continue with beta-mila, Cozaar Hypertension Labile BP Currently on Coreg, resume Cozaar and adjust medication accordingly Diabetes type 2 Continue with sliding scale insulin Check hemoglobin A1c Transfer to [facility]
[2018-03-29] MEDS: Senna/Docusate Sodium 8.6/50 MG Tablet PO SCH ×2 (09:40→23:34)
[2018-03-29] MEDS: levETIRAcetam 500 MG Tablet PO SCH ×2 (09:40→21:08)
[2018-03-29] MEDS: Insulin NovoLIN Regular Correctional Sugar Inj SQ SCH ×4 (09:40→23:35)
--- NOTE | 2018-03-29 14:14 | P.PNNS ---
Subjective Interval history: Pt awake and alert. Denies headaches, nausea, vomiting, paresthesias, or weakness. <Leonidas Lee - Last Filed: 03/29/18 16:41> Physical Exam Vital signs: Vital Signs 03/28/18 16:00 03/28/18 18:00 03/28/18 20:00 Temperature 98.3 F 97.5 F L Pulse Rate 62 60 68 Respiratory Rate 13 20 Blood Pressure 109/54 L 107/56 L Pulse Oximetry 95 95 03/29/18 00:00 03/29/18 02:00 03/29/18 04:00 Temperature 97.5 F L Pulse Rate 68 65 63 Respiratory Rate 16 15 Blood Pressure 133/60 115/58 L Pulse Oximetry 92 L 92 L 03/29/18 06:00 03/29/18 08:00 03/29/18 10:00 Temperature 97.8 F Pulse Rate 63 70 72 Respiratory Rate 16 Blood Pressure 96/55 L Pulse Oximetry 92 L Intake & Output 03/28/18 03/29/18 03/29/18 18:59 06:59 18:59 Intake Total 1680 / 1680 480 / 480 1000 / 1000 Output Total 600 / 600 400 / 400 Balance 1080 / 1080 80 / 80 1000 / 1000 Weight 82.7 kg Intake: IV 1200 / 1200 1000 / 1000 LR 1000 mL Inj 1,000 ML @ 50 1000 / 1000 1000 / 1000 mls/hr IV.CONT .Q20H [facility] Rx#: [id number] Ofirmev Inj 1,000 mg In 100 ml 100 / 100 @ 400 mls/hr IV.SIG Q6H PRN Rx# :[id number] Magnesium Sulfate Inj 2 GM In 100 / 100 NS Inj 96 ML @ 100 mls/hr IV. SIG UNSCH PRN Rx#:[id number] Oral 480 / 480 480 / 480 Output: Urine 400 / 400 Urine Amount (Catheter) 200 / 200 400 / 400 Female External 200 / 200 400 / 400 Other: Date of Last Bowel Movement 03/26/18 03/26/18 03/26/18 - Urinary Catheter Management Female External Cath placed during this visit: no <Gustabo Lewis - Last Filed: 03/29/18 15:21> Vital signs: Vital Signs 03/28/18 16:00 03/28/18 18:00 03/28/18 20:00 Temperature 98.3 F 97.5 F L Pulse Rate 62 60 68 Respiratory Rate 13 20 Blood Pressure 109/54 L 107/56 L Pulse Oximetry 95 95 03/29/18 00:00 03/29/18 02:00 03/29/18 04:00 Temperature 97.5 F L Pulse Rate 68 65 63 Respiratory Rate 16 15 Blood Pressure 133/60 115/58 L Pulse Oximetry 92 L 92 L 03/29/18 06:00 03/29/18 08:00 03/29/18 10:00 Temperature 97.8 F Pulse Rate 63 70 72 Respiratory Rate 16 Blood Pressure 96/55 L Pulse Oximetry 92 L Intake & Output 03/28/18 03/29/18 03/29/18 18:59 06:59 18:59 Intake Total 1680 / 1680 480 / 480 1000 / 1000 Output Total 600 / 600 400 / 400 Balance 1080 / 1080 80 / 80 1000 / 1000 Weight 82.7 kg Intake: IV 1200 / 1200 1000 / 1000 LR 1000 mL Inj 1,000 ML @ 50 1000 / 1000 1000 / 1000 mls/hr IV.CONT .Q20H [facility] Rx#: [id number] Ofirmev Inj 1,000 mg In 100 ml 100 / 100 @ 400 mls/hr IV.SIG Q6H PRN Rx# :[id number] Magnesium Sulfate Inj 2 GM In 100 / 100 NS Inj 96 ML @ 100 mls/hr IV. SIG UNSCH PRN Rx#:[id number] Oral 480 / 480 480 / 480 Output: Urine 400 / 400 Urine Amount (Catheter) 200 / 200 400 / 400 Female External 200 / 200 400 / 400 Other: Date of Last Bowel Movement 03/26/18 03/26/18 03/26/18 - Constitutional no acute distress, cooperative - Routine HEENT Exam Head: Present: normocephalic Eye: Present: PERRL (Pupils 3mm bilaterally reactive bilaterally.). Absent: conjunctival icterus ENT: Present: oropharynx clear - Routine Respiratory Exam Present: CTA bilaterally. Absent: respiratory distress, rhonchi, wheezes - Routine Cardiovascular Exam Present: RRR, S1, S2. Absent: murmur - Routine Abdominal Exam Present: soft, normoactive bowel sounds. Absent: distended, firm - Routine Skin Exam Absent: cyanosis, erythema - Routine Neurological Exam Present: alert, moving all extremities, normal speech. Absent: sensory deficit , motor deficit, altered mental status - Routine Psychiatric Exam Present: normal affect, cooperative, good judgment. Absent: anxious, agitated - Urinary Catheter Management Female External Cath placed during this visit: no <Leonidas Lee - Last Filed: 03/29/18 16:41> Assessment and Plan - Assessment (1) TBI (traumatic brain injury) Code(s): S06.9X9A - Unspecified intracranial injury with loss of consciousness of unspecified duration, initial encounter Status: Acute (2) Acute non-ST elevation myocardial infarction (NSTEMI) Code(s): I21.4 - Non-ST elevation (NSTEMI) myocardial infarction Status: Acute (3) Subarachnoid hemorrhage Code(s): I60.9 - Nontraumatic subarachnoid hemorrhage, unspecified Status: Acute (4) Syncope and collapse Code(s): R55 - Syncope and collapse Status: Acute - Attending Attestation The exam, history, and the medical decision-making described in the above note were completed with the assistance of the mid-level provider. I reviewed and agree with the findings presented. I attest that I had a [id number] encounter with the patient on the same day, and personally performed and documented my assessment and findings in the medical record. <Gustabo Lewis - Last Filed: 03/29/18 15:21> - Assessment (1) Acute non-ST elevation myocardial infarction (NSTEMI) Code(s): I21.4 - Non-ST elevation (NSTEMI) myocardial infarction Status: Acute (2) Hypertension Code(s): I10 - Essential (primary) hypertension Status: Chronic Qualifiers: Hypertension type: essential hypertension Qualified Code(s): I10 - Essential (primary) hypertension (3) Hyperlipidemia Code(s): E78.5 - Hyperlipidemia, unspecified Status: Chronic Qualifiers: Hyperlipidemia type: mixed hyperlipidemia Qualified Code(s): E78.2 - Mixed hyperlipidemia (4) Coronary artery disease Code(s): I25.10 - Atherosclerotic heart disease of [place] coronary artery without angina pectoris Status: Chronic Qualifiers: Coronary Disease-Associated Artery/Lesion type: [place] artery [place] vs. transplanted heart: [place] heart Associated angina: without angina Qualified Code(s): I25.10 - Atherosclerotic heart disease of [place] coronary artery without angina pectoris (5) Diabetes Code(s): E11.9 - Type 2 diabetes mellitus without complications Status: Acute (6) Pain Code(s): R52 - Pain, unspecified Status: Acute (7) Dyspnea Code(s): R06.00 - Dyspnea, unspecified Status: Acute (8) Subarachnoid hemorrhage Code(s): I60.9 - Nontraumatic subarachnoid hemorrhage, unspecified Status: Acute - Plan 78-year-old female with extensive medical comorbidities with a recent myocardial infarction status post coronary stenting 3 days ago. She had a syncopal episode and fell and struck her head with it appears to be traumatic cervical hemorrhage involving the right sylvian fissure and convexity. She refuses IV contrast demonstration for CT imaging in the brain to rule out any underlying aneurysm. Recommend observation and medical management. Syncope workup as per the medical/cardiology service. Avoid blood thinners given the intracranial hemorrhage, Discussed with Dr. Lewis today and he approved ASA 81mg starting tomorrow per Churn Operator Margarine request. Follow-up CT scan of the head was stable. Continue to increase activity with PT. Continue to monitor. <Leonidas Lee - Last Filed: 03/29/18 16:41>
--- NOTE | 2018-03-29 14:30 | P.PNCC ---
Subjective Brief History: 78-year-old female with severe CAD status post non-STEMI 3 days ago with a syncopal work which has resulted in traumatic subarachnoid hemorrhage 24 Hour Review/Hospital Course: 03/28 Patient's [place] Coma Score is 15 He is hemodynamically normal She is moving all 4 extremities Her pain is been controlled with Tylenol IV as needed Her CT scan is stable He has been seen by her stitching machine setter and her troponin has been trending down Is to be cleared by the neurosurgeon for antiplatelet agents 03/29/18 Stable overnight, no neuro changes Repeat CT Brain stable with evolving contusions Transfer to Med/Surg Tele Objective Vital Signs / I&O: Vital Signs 03/28/18 16:00 03/28/18 18:00 03/28/18 20:00 Temperature 98.3 F 97.5 F L Pulse Rate 62 60 68 Respiratory Rate 13 20 Blood Pressure 109/54 L 107/56 L Pulse Oximetry 95 95 03/29/18 00:00 03/29/18 02:00 03/29/18 04:00 Temperature 97.5 F L Pulse Rate 68 65 63 Respiratory Rate 16 15 Blood Pressure 133/60 115/58 L Pulse Oximetry 92 L 92 L 03/29/18 06:00 03/29/18 08:00 03/29/18 10:00 Temperature 97.8 F Pulse Rate 63 70 72 Respiratory Rate 16 Blood Pressure 96/55 L Pulse Oximetry 92 L Intake & Output 03/28/18 03/29/18 03/29/18 18:59 06:59 18:59 Intake Total 1680 / 1680 480 / 480 1000 / 1000 Output Total 600 / 600 400 / 400 Balance 1080 / 1080 80 / 80 1000 / 1000 Weight 82.7 kg Intake: IV 1200 / 1200 1000 / 1000 LR 1000 mL Inj 1,000 ML @ 50 1000 / 1000 1000 / 1000 mls/hr IV.CONT .Q20H [facility] Rx#: [id number] Ofirmev Inj 1,000 mg In 100 ml 100 / 100 @ 400 mls/hr IV.SIG Q6H PRN Rx# :[id number] Magnesium Sulfate Inj 2 GM In 100 / 100 NS Inj 96 ML @ 100 mls/hr IV. SIG UNSCH PRN Rx#:[id number] Oral 480 / 480 480 / 480 Output: Urine 400 / 400 Urine Amount (Catheter) 200 / 200 400 / 400 Female External 200 / 200 400 / 400 Other: Date of Last Bowel Movement 03/26/18 03/26/18 03/26/18 Result Diagrams: 03/28/18 07:47 03/28/18 07:47 Disinhibition Score: 14.00 Aggression Score: 14.00 Lability Score: 14.00 Agitated Behavior Total Score: 14 Objective Remarks: GENERAL: 78-year-old well-nourished, well developed female lying in bed in no acute distress. SKIN: Warm and dry. HEAD: Normocephalic. EYES: Pupils equal and round. No scleral icterus. ENT: No nasal bleeding or discharge. Mucous membranes pink and moist. NECK: Trachea midline. No JVD. CARDIOVASCULAR: Regular rate and rhythm. RESPIRATORY: No accessory muscle use. Lungs clear to auscultation. Breath sounds equal bilaterally. GASTROINTESTINAL: Abdomen soft, non-tender, nondistended. + BS. MUSCULOSKELETAL: Extremities without cyanosis, or edema. MAEW, + perfused NEUROLOGICAL: A&O. Normal speech. Assessment and Plan Plan: INJURIES: SA[facility] PMHx: Recent Non STEMI (3 days ago) with cardiac cath, breast CA, CAD, HTN, HLD , [place], LLE lymphedema, uterine cancer, DM, mastectomy, CABG, cholecystectomy SA[facility] NS consulted Supportive care Neuro checks Neuropsychology consulted PO Keppra x 7 days OOB-PT ordered Rehab placement Syncope, NSTEMI Recent Echo shows EF 30-35%- per Cardiology not candidate for further stenting or bypass Carotid US- No hemodynamically significant stenosis Cardiology consulted Hospitalist consulted for medical management Patient requested DNR Hospice consult requested by patient- CM assisting Plan of care discussed with patient, son, wind farm designer, daughter and DESKTOP ANALYST at bedside. Collaborating Trauma surgeon agrees with plan. Case management consulted to assist with discharge planning.
[2018-03-30 04:41] LABS: Baso % (Auto) 0.5 % (0.0-2.0); Eos # (Auto) 0.4 th/mm3 (0.0-0.4); Eos % (Auto) 5.2 % (0.0-4.0); Hemoglobin 12.9 gm/dL (11.6-15.3); Lymph # (Auto) 2.1 th/mm3 (1.0-4.8); Lymph % (Auto) 25.1 % (9.0-44.0); Mean Corpuscular Hemoglobin 30.5 pg (27.0-34.0); Mean Corpuscular Volume 92.4 fL (80.0-100.0); Mean Platelet Volume 8.1 fL (7.0-11.0); Mono # (Auto) 0.9 th/mm3 (0.0-0.9); Mono % (Auto) 10.7 % (0.0-8.0); Neut % (Auto) 58.5 % (16.0-70.0); Platelet Count 331 th/mm3 (150-450); Red Blood Count 4.22 mil/mm3 (4.00-5.30); Red Cell Distribution Width 13.9 % (11.6-17.2); White Blood Count 8.6 th/mm3 (4.0-11.0)
[2018-03-30 05:11] LABS: Alanine Aminotransferase 17 U/L (10-53); Albumin 2.4 g/dL (3.4-5.0); Anion Gap 9 meq/L (5-15); Aspartate Aminotransferase 24 U/L (15-37); Blood Urea Nitrogen 14 mg/dL (7-18); Calcium 8.2 mg/dL (8.5-10.1); Carbon Dioxide 27.2 meq/L (21.0-32.0); Chloride 110 meq/L (98-107); Glomerular Filtration Rate 62 mL/min (>89); Glucose,Random 115 mg/dL (74-106); Potassium 3.9 meq/L (3.5-5.1); Sodium 146 meq/L (136-145)
[2018-03-30 05:12] LABS: Alkaline Phosphatase 70 U/L (45-117); Total Protein 6.2 g/dL (6.4-8.2)
--- NOTE | 2018-03-30 08:52 | P.PN ---
Subjective Interval history: TRAUMA PTD: 3 Pt sitting up in bed. No distress noted. A&O x 3. Pt states, "I am OK." Pt was able to tell us how she fell at home. No complaints at this time. Pt states that she is eating well. Denies numbness or tingling to any extremities. Physical Exam Vital signs: Vital Signs 03/29/18 10:00 03/29/18 12:00 03/29/18 16:00 Temperature 97.5 F L 97.9 F Pulse Rate 72 71 79 Respiratory Rate 18 18 Blood Pressure 100/55 L 114/58 L Pulse Oximetry 95 97 03/29/18 20:00 03/30/18 00:00 03/30/18 04:00 Temperature 98.3 F 98 F 98 F Pulse Rate 84 82 80 Respiratory Rate 20 16 16 Blood Pressure 144/67 H 128/92 H 126/58 L Pulse Oximetry 95 96 95 Intake & Output 03/29/18 03/30/18 03/30/18 18:59 06:59 18:59 Intake Total 1000 / 1000 Balance 1000 / 1000 Intake: IV 1000 / 1000 LR 1000 mL Inj 1,000 ML @ 50 1000 / 1000 mls/hr IV.CONT .Q20H [facility] Rx#: [id number] Other: Date of Last Bowel Movement 03/26/18 Narrative: GENERAL: This is a 78-year-old female lying in bed. No distress noted. SKIN: Warm and dry. HEAD: Atraumatic. Normocephalic. EYES: PERRLA ENT: No nasal bleeding or discharge. Mucous membranes pink and moist. NECK: Trachea midline. No JVD. CARDIOVASCULAR: Regular rate and rhythm. RESPIRATORY: No accessory muscle use. Lungs are clear to auscultation. Breath sounds equal bilaterally. No distress or dyspnea. GASTROINTESTINAL: BS + x 4 quads. Abdomen soft, non-tender, nondistended. MUSCULOSKELETAL: Extremities without cyanosis, or edema. + peripheral pulses x 4 extremities. Warm with good capillary refill and sensation. MAEW. NEUROLOGICAL: Awake and alert. Normal speech and pattern. - Urinary Catheter Management Female External Cath placed during this visit: no Results - Labs CBC & Chem 7: 03/30/18 04:04 03/30/18 04:04 Laboratory Results - last 24 hr 03/29/18 03/29/18 03/29/18 08:58 12:06 17:47 WBC RBC Hgb Hct MCV MCH MCHC RDW Plt Count MPV Neut % (Auto) Lymph % (Auto) [place] % (Auto) Eos % (Auto) Baso % (Auto) Neut # (Auto) Lymph # (Auto) [place] # (Auto) Eos # (Auto) Baso # (Auto) WBC Differential Differential Comment Sodium Potassium Chloride Carbon Dioxide Anion Gap BUN Creatinine Estimated GFR POC Glucose 123 H 139 H 121 H Random Glucose Calcium Total Bilirubin AST ALT Alkaline Phosphatase Total Protein Albumin 03/30/18 03/30/18 03/30/18 04:04 04:04 07:47 WBC 8.6 RBC 4.22 Hgb 12.9 Hct 39.0 MCV 92.4 MCH 30.5 MCHC 33.0 RDW 13.9 Plt Count 331 MPV 8.1 Neut % (Auto) 58.5 Lymph % (Auto) 25.1 [place] % (Auto) 10.7 H Eos % (Auto) 5.2 H Baso % (Auto) 0.5 Neut # (Auto) 5.0 Lymph # (Auto) 2.1 [place] # (Auto) 0.9 Eos # (Auto) 0.4 Baso # (Auto) 0.0 WBC Differential . Differential Comment Auto diff final Sodium 146 H Potassium 3.9 Chloride 110 H Carbon Dioxide 27.2 Anion Gap 9 BUN 14 Creatinine 0.88 Estimated GFR 62 L POC Glucose 108 Random Glucose 115 H Calcium 8.2 L Total Bilirubin 0.3 AST 24 ALT 17 Alkaline Phosphatase 70 Total Protein 6.2 L Albumin 2.4 L Assessment and Plan - Assessment (1) Subarachnoid hemorrhage Code(s): I60.9 - Nontraumatic subarachnoid hemorrhage, unspecified Status: Acute - Plan [place]: This is a 78-year-old female who sustained a fall. She had a syncopal episode upon standing. Positive LOC. Vomiting in route. INJURIES: SAH PMHx: Recent NSTEMI (3 days ago) with cardiac cath. MS. CAD. CABG. HTN. HLD. DM. Breast CA w/ mastectomy. LLE lymphedema, Uterine cancer. Cholecystectomy Procedures: Consults: Neurosurgery. Cardiology. Hospitalist. Stacey. Joshua nurse liaison. Case management. Diet: ADA diet. Tolerating po diet. Encourage good po intake with each meal. Pulmonary: Encourage good pulmonary toileting. IS at bedside and pt encouraged to use. Rationale for use explained to patient, and verbalized understanding. PAIN Management: IV Ofirmev PRN. Activity: OOB. PT ordered GI prophylaxis: Protonix 40 mg po Bowel regimen: Susanne-colace. MOM. Lactulose. Senna PRN. Bisacodyl PRN. LBM: 0 DVT prophylaxis: Mechanical VTE with SCDs. Chemical management resumed ASA home dosing by NS. DC Planning: Case management consulted for assistance with final discharge disposition. Patient is originally followed by [facility] hospice. Patient has requested a hospice consult. She will require short-term rehab, then may return to hospice. Emotional support provided to patient at bedside and plan of care discussed. Discussed with RN at bedside. Discussed pt condition and plan of care with collaborating trauma surgeon. Patient is hemodynamically stable and being managed on the med/surg floor. The trauma team will round each day, and evaluate plan of care on a daily basis. SA[facility] Neurosurgery consulted and assisting in management and care Supportive care Serial neuro checks Prevent secondary head injury 03/28: CT Brain- evolving SAH CT brain for any change in neurological status Pain management Encourage out of bed PT and OT ordered Seizure precautions Seizure prophylaxis with Josef Neuropsych consulted and assisting in management and care Syncope Cardiology consulted and assisting in management and care Hospitalist consulted and assisting in management and care 03/28: Carotid US- No hemodynamically significant stenosis ECHO - EF 30-35%- not candidate for further stenting or bypass EKG with ST elevation similar to days prior Refused CTA chest and neck HTN HLD CAD DM Hx: MS Hx: CABG Hospitalist consulted and assisting in management care Vitals every 4 hours ADA diet Sliding scale insulin AC, HS Resume home medications Coreg 3.125 mg BID. Cozaar 25 mg QD. Catapress 0.1 mg q 6h PRN. Lipitor. - Attending Attestation patient seen at bedside no acute issues doing better rehab planning pt dnr The exam, history, and the medical decision-making described in the above note were completed with the assistance of the mid-level provider. I reviewed and agree with the findings presented. I attest that I had a [id number] encounter with the patient on the same day, and personally performed and documented my assessment and findings in the medical record.
[2018-03-30] MEDS: Insulin NovoLIN Regular Correctional Sugar Inj SQ SCH ×4 (09:18→20:59)
[2018-03-30] MEDS: Senna/Docusate Sodium 8.6/50 MG Tablet PO SCH ×2 (09:20→20:58)
[2018-03-30] MEDS: levETIRAcetam 500 MG Tablet PO SCH ×2 (09:20→20:57)
--- NOTE | 2018-03-30 12:05 | P.PN ---
Subjective Interval history: Follow-up intracranial bleed/non ST elevation OK status post stent placement March 29, 2018-patient seen and examined, complains of head pain however denies any significant headaches. Denies any shortness of breath. Family by the bedside. dental office assistant present due to patient's son who is deaf. March 30, 2018-patient seen and examined, denies any chest pain or shortness of breath. No headaches. Only temporal pressure-like head pain Physical Exam Vital signs: Vital Signs 03/29/18 16:00 03/29/18 20:00 03/30/18 00:00 Temperature 97.9 F 98.3 F 98 F Pulse Rate 79 84 82 Respiratory Rate 18 20 16 Blood Pressure 114/58 L 144/67 H 128/92 H Pulse Oximetry 97 95 96 03/30/18 04:00 03/30/18 08:00 Temperature 98 F 97.6 F Pulse Rate 80 78 Respiratory Rate 16 18 Blood Pressure 126/58 L 151/67 H Pulse Oximetry 95 92 L Intake & Output 03/29/18 03/30/18 03/30/18 18:59 06:59 18:59 Intake Total 1000 / 1000 Balance 1000 / 1000 Intake: IV 1000 / 1000 LR 1000 mL Inj 1,000 ML @ 50 1000 / 1000 mls/hr IV.CONT .Q[facility] Rx#: [id number] Other: Date of Last Bowel Movement 03/26/18 Narrative: GENERAL: No distress noted. SKIN: Warm and dry. HEAD: Atraumatic. Normocephalic. EYES: PERRLA ENT: No nasal bleeding or discharge. Mucous membranes pink and moist. NECK: Trachea midline. No JVD. CARDIOVASCULAR: Regular rate and rhythm. RESPIRATORY: No accessory muscle use. Lungs are clear to auscultation. Breath sounds equal bilaterally. No distress or dyspnea. GASTROINTESTINAL: BS + x 4 quads. Abdomen soft, non-tender, nondistended. MUSCULOSKELETAL: Extremities without cyanosis, or edema. + peripheral pulses x 4 extremities. Warm with good capillary refill and sensation. MAEW. NEUROLOGICAL: Awake and alert. Normal speech and pattern. - Urinary Catheter Management Female External Cath placed during this visit: no Results - Labs CBC & Chem 7: 03/30/18 04:04 03/30/18 04:04 Laboratory Results - last 24 hr 03/29/18 03/29/1803/30/18 12:06 17:47 04:04 WBC 8.6 RBC 4.22 Hgb 12.9 Hct 39.0 MCV 92.4 MCH 30.5 MCHC 33.0 RDW 13.9 Plt Count 331 MPV 8.1 Neut % (Auto) 58.5 Lymph % (Auto) 25.1 [place] % (Auto) 10.7 H Eos % (Auto) 5.2 H Baso % (Auto) 0.5 Neut # (Auto) 5.0 Lymph # (Auto) 2.1 [place] # (Auto) 0.9 Eos # (Auto) 0.4 Baso # (Auto) 0.0 WBC Differential . Differential Comment Auto diff final Sodium Potassium Chloride Carbon Dioxide Anion Gap BUN Creatinine Estimated GFR POC Glucose 139 H 121 H Random Glucose Calcium Total Bilirubin AST ALT Alkaline Phosphatase Total Protein Albumin 03/30/18 03/30/18 04:04 07:47 WBC RBC Hgb Hct MCV MCH MCHC RDW Plt Count MPV Neut % (Auto) Lymph % (Auto) [place] % (Auto) Eos % (Auto) Baso % (Auto) Neut # (Auto) Lymph # (Auto) [place] # (Auto) Eos # (Auto) Baso # (Auto) WBC Differential Differential Comment Sodium 146 H Potassium 3.9 Chloride 110 H Carbon Dioxide 27.2 Anion Gap 9 BUN 14 Creatinine 0.88 Estimated GFR 62 L POC Glucose 108 Random Glucose 115 H Calcium 8.2 L Total Bilirubin 0.3 AST 24 ALT 17 Alkaline Phosphatase 70 Total Protein 6.2 L Albumin 2.4 L Assessment and Plan - Assessment (1) Acute non-ST elevation myocardial infarction (NSTEMI) Code(s): I21.4 - Non-ST elevation (NSTEMI) myocardial infarction Status: Acute (2) Subarachnoid hemorrhage Code(s): I60.9 - Nontraumatic subarachnoid hemorrhage, unspecified Status: Acute - Plan 78-year-old female with Intracranial hemorrhage Management per neurosurgery Repeat head CT stable PT to treat and eval Non-ST elevation OK Status post left heart catheterization with PCI stent x3 Currently on Statin, Coreg, Cozaar, aspirin Ischemic cardiomyopathy Continue with beta-mila, Cozaar Hypertension Currently on Coreg, Cozaar and adjust medication accordingly Diabetes type 2 Continue with sliding scale insulin
[2018-03-31] MEDS: Insulin NovoLIN Regular Correctional Sugar Inj SQ SCH ×2 (08:16→13:16)
[2018-03-31 08:28] VITALS: RESP 20; O2SAT 94
--- NOTE | 2018-03-31 09:45 | P.PN ---
Subjective Interval history: Follow-up intracranial bleed/non ST elevation MD status post stent placement March 29, 2018-patient seen and examined, complains of head pain however denies any significant headaches. Denies any shortness of breath. Family by the bedside. border measurer present due to patient's son who is deaf. March 30, 2018-patient seen and examined, denies any chest pain or shortness of breath. No headaches. Only temporal pressure-like head pain March 31, 2018-patient seen and examined, she was resting, no acute event overnight. Vital stable. Physical Exam Vital signs: Vital Signs 03/30/18 12:00 03/30/18 15:52 03/30/18 16:00 Temperature 97.7 F 97.4 F L Pulse Rate 69 96 H 69 Respiratory Rate 18 18 Blood Pressure 155/67 H 148/67 H Pulse Oximetry 93 L 95 03/30/18 20:00 03/31/18 00:00 03/31/18 04:00 Temperature 97.6 F 97.7 F 97.9 F Pulse Rate 72 76 79 Respiratory Rate 18 18 18 Blood Pressure 121/80 130/79 135/80 Pulse Oximetry 95 96 95 03/31/18 08:00 Temperature 97.9 F Pulse Rate 63 Respiratory Rate 20 Blood Pressure 145/61 H Pulse Oximetry 94 L Intake & Output 03/30/18 03/31/18 03/31/18 18:59 06:59 18:59 Output Total 400 / 400 Balance -400 / -400 Weight 79.5 kg Output: Urine 400 / 400 Other: # Incontinent Voids 1 Date of Last Bowel Movement 03/30/18 # Bowel Movements 1 Narrative: GENERAL: NAD. SKIN: Warm and dry. HEAD: Atraumatic. Normocephalic. EYES: PERRLA ENT: No nasal bleeding or discharge. Mucous membranes pink and moist. NECK: Trachea midline. No JVD. CARDIOVASCULAR: Regular rate and rhythm. RESPIRATORY: No accessory muscle use. Lungs are clear to auscultation. Breath sounds equal bilaterally. No distress or dyspnea. GASTROINTESTINAL: BS + x 4 quads. Abdomen soft, non-tender, nondistended. MUSCULOSKELETAL: Extremities without cyanosis, or edema. + peripheral pulses x 4 extremities. Warm with good capillary refill and sensation. MAEW. NEUROLOGICAL: Awake and alert. Normal speech and pattern. - Urinary Catheter Management Female External Cath placed during this visit: no Results - Labs CBC & Chem 7: 03/30/18 04:04 03/30/18 04:04 Laboratory Results - last 24 hr 03/30/18 03/30/18 03/30/18 12:25 17:09 20:57 POC Glucose 131 H 159 H 149 H 03/31/18 08:09 POC Glucose 118 H Assessment and Plan - Assessment (1) Acute non-ST elevation myocardial infarction (NSTEMI) Code(s): I21.4 - Non-ST elevation (NSTEMI) myocardial infarction Status: Acute (2) Subarachnoid hemorrhage Code(s): I60.9 - Nontraumatic subarachnoid hemorrhage, unspecified Status: Acute - Plan 78-year-old female with Intracranial hemorrhage Management per neurosurgery Stable PT to treat and eval Non-ST elevation MD Status post left heart catheterization with PCI stent x3 Continue Statin, Coreg, Cozaar, aspirin Ischemic cardiomyopathy Continue with beta-mila, Cozaar Hypertension Currently on Coreg, Cozaar and adjust medication accordingly Diabetes type 2 Continue with sliding scale insulin
[2018-03-31] MEDS: Senna/Docusate Sodium 8.6/50 MG Tablet PO SCH (09:52)
[2018-03-31] MEDS: levETIRAcetam 500 MG Tablet PO SCH (09:52)
--- NOTE | 2018-03-31 11:25 | P.PN ---
Subjective Interval history: Trauma PTD: 4 Patient sitting up in bed. No distress noted. No complaints offered. Patient is agreeable to rehab. Physical Exam Vital signs: Vital Signs 03/30/18 12:00 03/30/18 15:52 03/30/18 16:00 Temperature 97.7 F 97.4 F L Pulse Rate 69 96 H 69 Respiratory Rate 18 18 Blood Pressure 155/67 H 148/67 H Pulse Oximetry 93 L 95 03/30/18 20:00 03/31/18 00:00 03/31/18 04:00 Temperature 97.6 F 97.7 F 97.9 F Pulse Rate 72 76 79 Respiratory Rate 18 18 18 Blood Pressure 121/80 130/79 135/80 Pulse Oximetry 95 96 95 03/31/18 08:00 Temperature 97.9 F Pulse Rate 63 Respiratory Rate 20 Blood Pressure 145/61 H Pulse Oximetry 94 L Intake & Output 03/30/18 03/31/18 03/31/18 18:59 06:59 18:59 Output Total 400 / 400 Balance -400 / -400 Weight 79.5 kg Output: Urine 400 / 400 Other: # Incontinent Voids 1 Date of Last Bowel Movement 03/30/18 # Bowel Movements 1 Narrative: GENERAL: This is a 78-year-old female lying in bed. No distress noted. SKIN: Warm and dry. HEAD: Atraumatic. Normocephalic. EYES: PERRLA ENT: No nasal bleeding or discharge. Mucous membranes pink and moist. NECK: Trachea midline. No JVD. CARDIOVASCULAR: Regular rate and rhythm. RESPIRATORY: No accessory muscle use. Lungs are clear to auscultation. Breath sounds equal bilaterally. No distress or dyspnea. GASTROINTESTINAL: BS + x 4 quads. Abdomen soft, non-tender, nondistended. MUSCULOSKELETAL: Extremities without cyanosis, or edema. + peripheral pulses x 4 extremities. Warm with good capillary refill and sensation. MAEW. NEUROLOGICAL: Awake and alert. Normal speech and pattern. - Urinary Catheter Management Female External Cath placed during this visit: no Results - Labs CBC & Chem 7: 03/30/18 04:04 03/30/18 04:04 Laboratory Results - last 24 hr 03/30/18 03/30/18 03/30/18 12:25 17:09 20:57 POC Glucose 131 H 159 H 149 H 03/31/18 08:09 POC Glucose 118 H Assessment and Plan - Assessment (1) Subarachnoid hemorrhage Code(s): I60.9 - Nontraumatic subarachnoid hemorrhage, unspecified Status: Acute - Plan [place]: This is a 78-year-old female who sustained a fall. She had a syncopal episode upon standing. Positive LOC. Vomiting in route. INJURIES: [facility] PMHx: Recent NSTEMI (3 days ago) with cardiac cath. [place]. CAD. CABG. HTN. HLD. DM. Breast CA w/ mastectomy. LLE lymphedema, Uterine cancer. Cholecystectomy Procedures: Consults: Neurosurgery. Cardiology. Hospitalist. Neuropsych. Joshua nurse liaison. Case management. Diet: ADA diet. Tolerating po diet. Encourage good po intake with each meal. Pulmonary: Encourage good pulmonary toileting. IS at bedside and pt encouraged to use. Rationale for use explained to patient, and verbalized understanding. PAIN Management: IV Ofirmev PRN. Activity: OOB. PT ordered GI prophylaxis: Protonix 40 mg po Bowel regimen: Susanne-colace. MOM. Lactulose. Senna PRN. Bisacodyl PRN. LBM: 03/30 DVT prophylaxis: Mechanical VTE with SCDs. Chemical management resumed ASA home dosing by NS. DC Planning: Case management consulted for assistance with final discharge disposition. Patient is originally followed by [facility]. Patient has requested a hospice consult. She will require short-term rehab, then may return to hospice. Patient is clear from a trauma surgery standpoint to discharge to rehab. Emotional support provided to patient at bedside and plan of care discussed. Discussed with RN at bedside. Discussed pt condition and plan of care with collaborating trauma surgeon. Patient is hemodynamically stable and being managed on the med/surg floor. The trauma team will round each day, and evaluate plan of care on a daily basis. [facility] Neurosurgery consulted and assisting in management and care Supportive care Serial neuro checks Prevent secondary head injury 03/28: CT Brain- evolving [facility] CT brain for any change in neurological status Pain management Encourage out of bed PT and OT ordered Seizure precautions Seizure prophylaxis with Keppra Neuropsych consulted and assisting in management and care Syncope Cardiology consulted and assisting in management and care Hospitalist consulted and assisting in management and care 03/28: Carotid US- No hemodynamically significant stenosis ECHO - EF 30-35%- not candidate for further stenting or bypass EKG with ST elevation similar to days prior Refused CTA chest and neck HTN HLD CAD DM Hx: [place] Hx: CABG Hospitalist consulted and assisting in management care Vitals every 4 hours ADA diet Sliding scale insulin AC, HS Resume home medications Coreg 3.125 mg BID. Cozaar 25 mg QD. Catapress 0.1 mg q 6h PRN. Lipitor. - Attending Attestation patient seen at bedside s/p multitrauma rehab planning The exam, history, and the medical decision-making described in the above note were completed with the assistance of the mid-level provider. I reviewed and agree with the findings presented. I attest that I had a [id number] encounter with the patient on the same day, and personally performed and documented my assessment and findings in the medical record.
[2018-03-31 16:48] VITALS: BP 117/56; PULSE 76; TEMP 97.9
--- NOTE | 2018-04-01 17:00 | P.DS ---
Date of admission: 03/27/18 18:05 Primary care physician: Duong Noriega III, MD Attending physician on discharge: Haider Navas Anticipated date of discharge: 03/31/18 Brief History from admission: Fall. DS: Diagnosis - Discharge Diagnosis (1) Subarachnoid hemorrhage Status: Acute DS: Medications - Discharge Medications Prescriptions: acetaminophen [Tylenol] 325 mg PO Q6H PRN 7 Days cap PRN Reason: Pain DS: Summary Hospital Course: NATIVE: This is a 78-year-old female who sustained a fall. She had a syncopal episode upon standing. Positive LOC. Vomiting in route. INJURIES: SAH PMHx: Recent NSTEMI (3 days ago) with cardiac cath. [place]. CAD. CABG. HTN. HLD. DM. Breast CA w/ mastectomy. LLE lymphedema, Uterine cancer. Cholecystectomy Procedures: Consults: Neurosurgery. Cardiology. Hospitalist. Neuropsych. Joshua nurse liaison. Case management. Patient really wants to be discharged to rehab The patient is now tolerating a po diet. Eating and drinking well. Pain is being managed well with PO pain medications, pain has been managed with Tylenol p.o. all hospital medications will continue at rehab. (NO driving while taking narcotic pain medication enforced to patient.) Pt is having regular bowel movements, and have recommended to patient to continue with stool softeners while taking narcotic pain medications to prevent constipation. Pt has been participating in PT and OT while admitted at [place] and has been ambulating with their assistance and independently. PT and OT will continue at rehab All follow up appointments have been provided and discussed with the patient. It is recommended that the patient keeps all his follow up appointments for continued recovery. Patient's condition and plan of care discussed with collaborating trauma surgeon. He is agreeable to plan for discharge today. Therefore, the patient is stable to be safely discharged rehab from a trauma surgery standpoint. Thank you for allowing us to participate in her care. We wish Jayleen the best in her recovery. [facility] Neurosurgery consulted and assisting in management and care Supportive care Serial neuro checks Prevent secondary head injury 03/28: CT Brain- evolving [facility] CT brain for any change in neurological status Pain management Encourage out of bed PT and OT ordered Seizure precautions Seizure prophylaxis with Keharmonyra Neuropsych consulted and assisting in management and care Syncope Cardiology consulted and assisting in management and care Hospitalist consulted and assisting in management and care 03/28: Carotid US- No hemodynamically significant stenosis ECHO - EF 30-35%- not candidate for further stenting or bypass EKG with ST elevation similar to days prior Refused CTA chest and neck HTN HLD CAD DM Hx: [place] Hx: CABG Hospitalist consulted and assisting in management care Vitals every 4 hours ADA diet Sliding scale insulin AC, HS Resume home medications Coreg 3.125 mg BID. Cozaar 25 mg QD. Catapress 0.1 mg q 6h PRN. Lipitor. - Time Spent with Patient Total time spent providing and/or coordinating discharge services: Greater than 30 minutes - Quality: VTE Deep Vein Thrombosis/Pulmonary Embolism Present on Admission: No Exam Vital signs: Intake & Output 03/31/18 04/01/18 04/01/18 18:59 06:59 18:59 Other: Date of Last Bowel Movement 03/30/18 Results Procedures completed during hospitalization: . - Impressions ITS Impressions Chest X-Ray 03/27/18 12:39 CONCLUSION: 1. No acute abnormality or significant interval change. Carotid Doppler Study 03/28/18 00:00 CONCLUSION: 1. Right Internal Carotid Artery: Mild atherosclerotic plaquing. No hemodynamically significant stenosis. 2. Left Internal Carotid Artery: Mild atherosclerotic plaquing. No hemodynamically significant stenosis. Head CT 03/28/18 00:00 CONCLUSION: No significant interval change in right frontal/sylvian fissure subarachnoid hemorrhage and right parietal subarachnoid hemorrhage. . Discharge Plan - Discharge Disposition Patient Disposition: 62 Rehab Inpatient - Discharge Condition Condition: Stable - Discharge Order Discharge Orders: Discharge Order (Routine); Ordered 03/31/18 Ordered By: Nela Mcnamara - Discharge Details Anticipated Discharge Date: 03/31/18 - Physicians Team Primary Care Provider: Duong Noriega III Attending Provider: Francia Nielson Other Providers: Gustabo Lewis MD ; [employer],Insurance ; Binh Liu MD ; Blaze Ruelas MD ; [employer] ; Papo Canada MD ; Nela Mcnamara ARNP ; Haider Navas MD ; Francia Nielson MD ; Gómez Kyle ARNP ; Eliot Umanzor MD ; Tashi Arias, PhD ; Joseph Quintana MD ; Leonidas Ortiz MD ; Bola Burk,Agency
== END 2018-03-31 17:13 ==
LOC: NEPC 12:33 → NEDA 18:05 → N03 20:20 → N05 03-29 11:49
PROVIDERS: ADMIT Surgery Trauma Surgery; ATTEND Surgery Trauma Surgery

== ENCOUNTER 2018-06-09 10:43 | Observation (INO) ==
--- NOTE | 2018-06-09 11:44 | ED ---
HPI General Chief complaint: Chest Pain Stated complaint: Chest Pain Time Seen by Provider: 06/09/18 11:31 History of Present Illness HPI narrative: This is a 78-year-old female with history of hypertension, hyperlipidemia, coronary artery disease, recent subarachnoid hemorrhage, presents via EMS for evaluation of abdominal pain, chest pain, nausea and vomiting. Symptoms started last night. Her pain is primarily in the epigastrium and substernal region. She reports nonbloody emesis. Denies cough , congestion, fevers, chills. She reports that she had some diarrhea yesterday. Symptoms are moderate. Related Data Home Medications Medication Instructions Recorded Confirmed Toviaz 8 mg PO DAILY 03/24/18 06/09/18 paroxetine HCl 10 mg PO DAILY 03/24/18 06/09/18 Previous Rx's Medication Instructions Recorded atorvastatin 40 mg PO HS #30 tab 03/26/18 carvedilol [Coreg] 3.125 mg PO BID #60 tab 03/26/18 losartan 50 mg PO DAILY #30 tab 03/26/18 ticagrelor [Brilinta] 90 mg PO BID #60 tab 03/26/18 magnesium hydroxide [Milk of 30 ml PO Q12H ml 03/29/18 Magnesia] sennosides [Senna Lax] 17.2 mg PO Q12H PRN tab 03/29/18 aspirin 81 mg PO DAILY tab 03/31/18 Allergies Allergy/AdvReac Type Severity Reaction Status Date / Time No Known Allergies Allergy Verified 03/27/18 12:35 Review of Systems ROS: all other systems reviewed are negative PMFSH Social History Social History Substance History: No History of Abuse Second Hand Smoke Exposure: No Smoking Status: Former smoker Tobacco Type: Cigarettes How Often Do You Have a Drink Containing Alcohol: Never Recent Out of Country Travel within the Last 8 Weeks: No Exam Narrative Exam Narrative: GENERAL: This is a well-developed well-nourished female who appears uncomfortable on initial examination. SKIN: Warm and dry. HEAD: Atraumatic. Normocephalic. EYES: Pupils equal and round. No scleral icterus. No injection or drainage. ENT: No nasal bleeding or discharge. Mucous membranes pink and moist. NECK: Trachea midline. No JVD. CARDIOVASCULAR: Regular rate and rhythm. No murmur appreciated. RESPIRATORY: No accessory muscle use. Clear to auscultation. Breath sounds equal bilaterally. GASTROINTESTINAL: Abdomen soft, generalized tenderness to palpation without guarding. MUSCULOSKELETAL: No obvious deformities. Left lower extremity lymphedema noted. NEUROLOGICAL: Awake and alert. No obvious cranial nerve deficits. Motor grossly within normal limits. Normal speech. Course Initial Documented Vital Signs Temperature 98.0 F 06/09/18 11:20 Pulse Rate 82 06/09/18 11:20 Respiratory Rate 20 06/09/18 11:20 Blood Pressure 149/71 H 06/09/18 11:20 Pulse Oximetry 96 06/09/18 11:20 Last Documented Vital Signs Temperature 98.0 F 06/09/18 11:20 Pulse Rate 76 06/09/18 14:34 Respiratory Rate 20 06/09/18 14:34 Blood Pressure 171/74 H 06/09/18 14:34 Pulse Oximetry 98 06/09/18 14:34 Medical Decision Making DEONNA Attestation DEONNA supervised visit: Yes Attestation: I, Dr. Escoto, have reviewed the advance practice practitioner's documentation and am in agreement, met with the patient face to face, made the diagnosis, and the medical decision making was done by me. *My assessment and Findings: Agree with DEONNA documentation MDM Narrative Medical decision making narrative: 78-year-old female with history of coronary artery disease, hypertension, hyperlipidemia, diabetes, recent subarachnoid hemorrhage, presents with epigastric/substernal pain, nausea and vomiting since last night. On examination she appears uncomfortable. She was placed on ECG monitoring pulse oximetry. Twelve-lead EKG was obtained. Lab work, chest x-ray , CTA aorta, CT brain ordered. She was given Zofran. The initial AC IV was not flushing properly and therefore vascular access was called in order to obtain access. Lab work and imaging studies have been reviewed and found to be reassuring. CT of the brain, CTA of the aorta, negative. Initial cardiac enzymes are negative. At this point in time the plan is to admit her for observation for further evaluation of epigastric pain, chest pain, nausea and vomiting. Upon reexamination her symptoms are significant improved, currently no pain. Full dose aspirin administered. Discussed with Dr. Orozco who is agreeable with admission. Medical Screen Exam Complete: Yes Emergency Medical Condition: Yes Differential Diagnosis Differential Diagnosis: Acute coronary syndrome, bowel obstruction, aortic dissection, pulmonary embolism, pneumothorax, pericarditis, myocarditis, gastroenteritis, peptic ulcer disease, cholecystitis Lab Data Result diagrams: 06/09/18 11:30 06/09/18 11:30 Lab Results 06/09/18 06/09/18 06/09/18 Range/Units 11:30 11:30 11:30 WBC 6.8 (4.0-11.0) th/mm3 RBC 4.29 (4.00-5.30) mil/mm3 Hgb 13.2 (11.6-15.3) gm/dL POC Hgb (Calc) (11.6-15.3) g/dL Hct 39.9 (35.0-46.0) % POC Hct (35-46.0) % MCV 93.0 (80.0-100.0) fL MCH 30.6 (27.0-34.0) pg MCHC 32.9 (32.0-36.0) % RDW 14.4 (11.6-17.2) % Plt Count 336 (150-450) th/mm3 MPV 7.4 (7.0-11.0) fL Neut % (Auto) 48.1 (16.0-70.0) % Lymph % (Auto) 34.7 (9.0-44.0) % [place] % (Auto) 9.3 H (0.0-8.0) % Eos % (Auto) 6.8 H (0.0-4.0) % Baso % (Auto) 1.1 (0.0-2.0) % Neut # (Auto) 3.3 (1.8-7.7) th/mm3 Lymph # (Auto) 2.4 (1.0-4.8) th/mm3 [place] # (Auto) 0.6 (0.0-0.9) th/mm3 Eos # (Auto) 0.5 H (0.0-0.4) th/mm3 Baso # (Auto) 0.1 (0.0-0.2) th/mm3 WBC Differential . Differential Comment Auto diff final POC Sodium (137-144) mmol/L Sodium 143 (136-145) meq/L POC Potassium (3.6-5.0) mmol/L Potassium 4.2 (3.5-5.1) meq/L POC Chloride (102-111) mmol/L Chloride 110 H (98-107) meq/L Carbon Dioxide 25.7 (21.0-32.0) meq/L Anion Gap 7 (5-15) meq/L POC BUN (5-21) mg/dL BUN 8 (7-18) mg/dL Creatinine 0.88 (0.50-1.00) mg/dL POC Creatinine (0.6-1.3) mg/dL Estimated GFR 62 L (>89) mL/min POC Glucose (68-110) mg/dL Random Glucose 184 H (74-106) mg/dL Calcium 8.3 L (8.5-10.1) mg/dL Total Bilirubin 0.4 (0.2-1.0) mg/dL AST 25 (15-37) U/L ALT 19 (10-53) U/L Alkaline Phosphatase 80 (45-117) U/L Total Creatine Kinase 56 (26-192) U/L Troponin I Less than 0.02 L (0.02-0.05) ng/mL Total Protein 7.1 (6.4-8.2) g/dL Albumin 3.1 L (3.4-5.0) g/dL Lipase 190 Cancelled (73-393) U/L 06/09/18 06/09/18 Range/Units 11:30 11:30 WBC (4.0-11.0) th/mm3 RBC (4.00-5.30) mil/mm3 Hgb (11.6-15.3) gm/dL POC Hgb (Calc) 13.6 (11.6-15.3) g/dL Hct (35.0-46.0) % POC Hct 40.0 (35-46.0) % MCV (80.0-100.0) fL MCH (27.0-34.0) pg MCHC (32.0-36.0) % RDW (11.6-17.2) % Plt Count (150-450) th/mm3 MPV (7.0-11.0) fL Neut % (Auto) (16.0-70.0) % Lymph % (Auto) (9.0-44.0) % [place] % (Auto) (0.0-8.0) % Eos % (Auto) (0.0-4.0) % Baso % (Auto) (0.0-2.0) % Neut # (Auto) (1.8-7.7) th/mm3 Lymph # (Auto) (1.0-4.8) th/mm3 [place] # (Auto) (0.0-0.9) th/mm3 Eos # (Auto) (0.0-0.4) th/mm3 Baso # (Auto) (0.0-0.2) th/mm3 WBC Differential Differential Comment POC Sodium 144 (137-144) mmol/L Sodium (136-145) meq/L POC Potassium 4.2 (3.6-5.0) mmol/L Potassium (3.5-5.1) meq/L POC Chloride 105 (102-111) mmol/L Chloride (98-107) meq/L Carbon Dioxide (21.0-32.0) meq/L Anion Gap (5-15) meq/L POC BUN 8 (5-21) mg/dL BUN (7-18) mg/dL Creatinine (0.50-1.00) mg/dL POC Creatinine 0.8 (0.6-1.3) mg/dL Estimated GFR (>89) mL/min POC Glucose 192 H (68-110) mg/dL Random Glucose (74-106) mg/dL Calcium (8.5-10.1) mg/dL Total Bilirubin (0.2-1.0) mg/dL AST (15-37) U/L ALT (10-53) U/L Alkaline Phosphatase (45-117) U/L Total Creatine Kinase Cancelled (26-192) U/L Troponin I (0.02-0.05) ng/mL Total Protein (6.4-8.2) g/dL Albumin (3.4-5.0) g/dL Lipase (73-393) U/L Imaging Data Radiologist's impression: Chest X-Ray 06/09/18 11:33 CONCLUSION: No acute cardiopulmonary process. Head CT 06/09/18 11:37 CONCLUSION: 1. No acute abnormality. 2. Focal encephalomalacia at the left caudate and anterior left basal ganglia. . Thoracic Aorta CT 06/09/18 11:38 CONCLUSION: 1. Atherosclerotic change seen throughout the arterial system. A dissection or aneurysm is not seen. 2. 5 mm pulmonary nodule in the left upper lobe and some subpleural density in the right upper lobe. These could be followed with a noncontrast CT examination in 6 months. 3. Hepatic steatosis. Discharge Plan Discharge Disposition Patient Disposition: ED Admit(ED Internal Use Only) Discharge Condition Condition: Stable Discharge Order Discharge Orders: ED Use Only Admit Order (Routine); Ordered 06/09/18 Ordered By: Cedrick Carr Discharge Details Diagnosis: Chest pain, Acute epigastric pain, Nausea & vomiting Physicians Team ED Provider: Mario Escoto ED Midlevel Provider: Cedrick Carr Primary Care Provider: UNKNOWN, Attending Provider: Igor Orozco Status ED Status: Admitted Observation Patient
[2018-06-09 11:58] LABS: Baso # (Auto) 0.1 th/mm3 (0.0-0.2); Baso % (Auto) 1.1 % (0.0-2.0); Eos # (Auto) 0.5 th/mm3 (0.0-0.4); Eos % (Auto) 6.8 % (0.0-4.0); Hematocrit 39.9 % (35.0-46.0); Hemoglobin 13.2 gm/dL (11.6-15.3); Lymph # (Auto) 2.4 th/mm3 (1.0-4.8); Lymph % (Auto) 34.7 % (9.0-44.0); Mean Corpuscular HGB Conc 32.9 % (32.0-36.0); Mean Corpuscular Hemoglobin 30.6 pg (27.0-34.0); Mean Platelet Volume 7.4 fL (7.0-11.0); Mono # (Auto) 0.6 th/mm3 (0.0-0.9); Mono % (Auto) 9.3 % (0.0-8.0); Neut # (Auto) 3.3 th/mm3 (1.8-7.7); Neut % (Auto) 48.1 % (16.0-70.0); Platelet Count 336 th/mm3 (150-450); Red Blood Count 4.29 mil/mm3 (4.00-5.30); Red Cell Distribution Width 14.4 % (11.6-17.2); White Blood Count 6.8 th/mm3 (4.0-11.0)
[2018-06-09 12:53] LABS: Alanine Aminotransferase 19 U/L (10-53); Albumin 3.1 g/dL (3.4-5.0); Alkaline Phosphatase 80 U/L (45-117); Anion Gap 7 meq/L (5-15); Aspartate Aminotransferase 25 U/L (15-37); Blood Urea Nitrogen 8 mg/dL (7-18); Calcium 8.3 mg/dL (8.5-10.1); Carbon Dioxide 25.7 meq/L (21.0-32.0); Chloride 110 meq/L (98-107); Glomerular Filtration Rate 62 mL/min (>89); Glucose,Random 184 mg/dL (74-106); Lipase 190 U/L (73-393); Sodium 143 meq/L (136-145); Total Protein 7.1 g/dL (6.4-8.2)
[2018-06-09 12:55] LABS: Creatine Kinase 56 U/L (26-192); Potassium 4.2 meq/L (3.5-5.1)
--- NOTE | 2018-06-09 13:18 | XR ---
EXAM DATE: 06/09/2018 1:15 PM EST AGE/SEX: 78 years / Female INDICATIONS: Chest Pain CLINICAL DATA: This is the patient's initial encounter. Patient reports that signs and symptoms have been present for 1 day and indicates a pain score of 4/10. MEDICAL/SURGICAL HISTORY: . Diabetes. Hypertension. Breast cancer. CAD. Hyperlipidemia. Myocard ial infarction. Uterine cancer. . Hysterectomy. CABG. Cholecystectomy. Mastectomy. Cardiac cathet erization. COMPARISON: [facility] – [place]ST 1V SINGLE AP, 03/27/2018. . FINDINGS: The patient is status post sternotomy. The heart size is normal. The lungs are grossly clear. A signi ficant effusion is not seen. Clips are seen over the right axillary region. CONCLUSION: No acute cardiopulmonary process. Electronically signed by: Erikc Aguirre MD 06/09/2018 1:17 PM EST
--- NOTE | 2018-06-09 14:15 | CT ---
EXAM DATE: 06/09/2018 2:00 PM EST AGE/SEX: 78 years / Female INDICATIONS: Dissection CLINICAL DATA: This is the patient's initial encounter. Patient reports that signs and symptoms have been present for 1 day and indicates a pain score of 7/10. MEDICAL/SURGICAL HISTORY: Diabetes. Carcinoma, uterine. Myocardial infarction. CABG. Cholecystec umang. Hysterectomy. RADIATION DOSE: 17.27 CTDI (mGy) COMPARISON: [facility] – [place], CT ABDOMEN & PELVIS W CONTRAST, 02/25/2011. . TECHNIQUE: Volumetric scanning was performed using a multi-row detector CT scanner during bolus infu sonny of 100 ml Omnipaque 350 (iohexol) nonionic water-soluble contrast as a single exam dose. The d lizette was post processed with a variety of visualization algorithms including full volume maximum inten sity projection, multi-planar sliding thin slab reformation, curved planar reformation, and surface r endering techniques. Using automated exposure control and adjustment of the mA and/or kV according t o patient size, radiation dose was kept as low as reasonably achievable to obtain optimal diagnostic quality images. DICOM format image data is available electronically for review and comparison. FINDINGS: Lungs: There is a 5 mm nodule seen at the anterior medial left upper lobe in the mid left chest. The re is also some mild subpleural density seen at the posterior medial right upper lung. Mediastinum: No abnormally enlarged lymph nodes by CT criteria. No axillary or hilar abnormalities a re identified. Clips are seen at the right axillary region. Abdomen: There is diffuse decreased attenuation to the liver. The patient is status post cholecystec umang. The spleen, pancreas, adrenal glands and kidneys are normal. There are scattered colonic divert icula. Pelvis: No evidence of free fluid or pelvic mass. No abnormally enlarged inguinal or retroperitoneal lymph nodes are present. The bladder is unremarkable. Thoracic Aorta: The thoracic aortic root is normal with normal branching of the great vessels. Ther e is no evidence of aneurysm or dissection. The patient is status post sternotomy. Atherosclerotic ca lcifications are present. Abdominal Aorta: The aorta is normal in caliber without aneurysm or dissection. The renal arteries are patent bilaterally. There is an accessory renal artery seen on the left side. The proximal julito c and superior mesenteric arteries are patent and normal in diameter. Atherosclerotic calcifications are present. Pelvic Vessels: The internal iliac and external iliac vessels are patent without aneurysm or stenosi s. CONCLUSION: 1. Atherosclerotic change seen throughout the arterial system. A dissection or aneurysm is not seen. 2. 5 mm pulmonary nodule in the left upper lobe and some subpleural density in the right upper lobe. These could be followed with a noncontrast CT examination in 6 months. 3. Hepatic steatosis. Electronically signed by: Erick Aguirre MD 06/09/2018 2:14 PM EST
--- NOTE | 2018-06-09 14:18 | CT ---
EXAM DATE: 06/09/2018 1:48 PM EST AGE/SEX: 78 years / Female INDICATIONS: Head injury CLINICAL DATA: This is the patient's initial encounter. Patient reports that signs and symptoms have been present for 1 day and indicates a pain score of 7/10. MEDICAL/SURGICAL HISTORY: Diabetes. Carcinoma, uterine. Myocardial infarction. CABG. Cholecystec umang. Hysterectomy. RADIATION DOSE: 39.54 CTDI (mGy) COMPARISON: [facility], CT HEAD W/O CONTRAST, 03/28/2018. . TECHNIQUE: CT of the head without contrast. Using automated exposure control and adjustment of the mA and/or kV according to patient size, radiation dose was kept as low as reasonably achievable to ob tain optimal diagnostic quality images. DICOM format image data is available electronically for revi ew and comparison. FINDINGS: Cerebrum: The ventricles and cortical sulci are mildly widened. There is an area of prior infarct at the left caudate head and in the anterior left basal ganglia. There are some expansion of the fronta l horn of the left lateral ventricle in response to this. There is some mild low-density in the cereb ral white matter especially at the left parietal region likely from small vessel ischemic change in t he white matter. No evidence of midline shift, mass lesion, hemorrhage or acute infarction. No ext raaxial fluid collections are seen. Posterior Fossa: The cerebellum and brainstem are intact. The 4th ventricle is midline. The cerebe llopontine angle is unremarkable. Extracranial: The visualized portion of the orbits is intact. Skull: The calvaria is intact. No evidence of skull fracture. CONCLUSION: 1. No acute abnormality. 2. Focal encephalomalacia at the left caudate and anterior left basal ganglia. . Electronically signed by: Erick Aguirre MD 06/09/2018 2:16 PM EST
[2018-06-09] MEDS ORDERED: Acetaminophen 325 MG Tablet PO PRN (14:34)
[2018-06-09] MEDS ORDERED: Bisacodyl 10 MG Supp RECTAL PRN (14:34)
--- NOTE | 2018-06-09 14:38 | P.HP ---
History of Present Illness Service: Hospitalist Primary Care Physician: UNKNOWN Chief Complaint: Epigastric pain, nausea, vomiting History of Present Illness: Ms. Wynn is a pleasant 78-year-old female with a history of CAD status post CABG and recent PCI stent placement (March 2018) currently on aspirin and Brilinta who presents to the emergency department on 06/08/2018 due to 2-day duration of epigastric pain as well as nausea vomiting. Night before this admission, patient started having nausea and vomiting. She was able to go to sleep. However, this morning she had 3 more episodes of nausea vomiting. She reports dull epigastric pain without any radiation. No diaphoresis. She denies any hematemesis, hemoptysis, diarrhea or constipation. She denies any changes in bladder habits. No fever or chills. Past medical history: CAD with a history of CABG, recent PCI/stent placement, uterine cancer, breast cancer, Chronic left leg lymphedema Past surgical history: 12/2010 - R CEA (02/11 cus L 50, R <30) 1995 - CABG (SVG TO OM, SVG to diag, DIGGS TO LAD) 1979 Bilateral modified radical mastectomy Hysterectomy- hx of uterine cancer Implants put in and then removed Ear drum graft on R Skin cancer removed on forehead 2013 Cholecystectomy Social history: Denies using tobacco, alcohol or illicit drugs. Family history: No family history of Alzheimer's or Parkinson's. Mother from blood clot at age 36. Review of Systems All other systems reviewed negative except as stated in HPI PMFSH - History History Provided By: Patient - Medical History Medical History: Medical History (Last Reviewed 06/09/18 @ 18:21 by Igor Orozco DO) Breast cancer Carotid artery disease Diabetes History of hysterectomy Hyperlipemia Hypertension Myocardial infarction Uterine cancer - Surgical History Surgical History: Surgical History (Last Reviewed 03/30/18 @ 09:22 by Lenard Martin) History of mastectomy Hx of CABG Hx of cardiac cath Hx of cholecystectomy - Family History Family History: Family History (Last Reviewed 03/30/18 @ 09:22 by Lenard Martin) Mother Clot - Tobacco History Second Hand Smoke Exposure: No Smoking Status: Former smoker Tobacco Type: Cigarettes - Alcohol History How Often Do You Have a Drink Containing Alcohol: Never - Substance Use History Substance History: No History of Abuse - Travel History Recent Travel Out of the Country Within the Last 8 Weeks: No - Immunization History Tetanus Immunization: Unsure Medications and Allergies Active Medications: Active Medications Acetaminophen (Tylenol) 650 mg PO Q4H PRN PRN Reason: Headache, fever, pain 1-4 Al Hydroxide/Mg Hydroxide (Milk Of Magnesia Liq) 30 ml PO Q12H PRN PRN Reason: Mild Constipation Aspirin (Ecotrin) 81 mg PO DAILY COUNTS INCLUDE 234 BEDS AT THE [facility] Atorvastatin Calcium (Lipitor) 40 mg PO HS COUNTS INCLUDE 234 BEDS AT THE [facility] Bisacodyl (Dulcolax Supp) 10 mg RECTAL DAILY PRN PRN Reason: SEVERE CONSITIPATION Carvedilol (Coreg) 3.125 mg PO BID COUNTS INCLUDE 234 BEDS AT THE [facility] Sodium Chloride (Ns Inj) 1,000 mls @ 100 mls/hr IV.CONT .Q10H BRANDY Stop: 06/10/18 14:44 Lactulose (Lactulose Liq) 30 ml PO DAILY PRN PRN Reason: SEVERE CONSITIPATION Losartan Potassium (Cozaar) 50 mg PO DAILY COUNTS INCLUDE 234 BEDS AT THE [facility] Non-Formulary Medication (Paroxetine Hcl [Paroxetine Hcl]) 10 mg PO DAILY COUNTS INCLUDE 234 BEDS AT THE [facility] Ondansetron HCl (Zofran Inj) 4 mg IV.PUSH Q6H PRN PRN Reason: NAUSEA OR VOMITING Pantoprazole Sodium (Protonix Inj) 40 mg IV.PUSH Q12H COUNTS INCLUDE 234 BEDS AT THE [facility] Sennosides (Senokot) 17.2 mg PO Q12H PRN PRN Reason: Moderate Constipation Sodium Chloride (Ns Flush) 2 ml IV.FLUSH UNSCH PRN PRN Reason: FLUSH AFTER USING IV ACCESS Last Admin: 06/09/18 11:58 Dose: 2 ml Sodium Chloride (Ns Flush) 2 ml IV.FLUSH BID COUNTS INCLUDE 234 BEDS AT THE [facility] Sodium Chloride (Ns Flush) 2 ml IV.FLUSH PRN PRN PRN Reason: FLUSH AFTER USING IV ACCESS Ticagrelor (Brilinta) 90 mg PO BID COUNTS INCLUDE 234 BEDS AT THE [facility] Allergies Allergy/AdvReac Type Severity Reaction Status Date / Time No Known Allergies Allergy Verified 03/27/18 12:35 Home Medications Medication Instructions Recorded Confirmed Type Toviaz 8 mg PO DAILY 03/24/18 06/09/18 History paroxetine HCl 10 mg PO DAILY 03/24/18 06/09/18 History Exam Vital signs: Vital Signs 06/09/18 11:20 06/09/18 11:33 Temperature 98.0 F Pulse Rate 82 77 Respiratory Rate 20 20 Blood Pressure 149/71 H 137/70 Pulse Oximetry 96 98 Intake & Output 06/08/18 06/09/18 06/09/18 18:59 06:59 18:59 Weight 88 kg Narrative: GENERAL: This is a well-nourished, well-developed patient, in no apparent distress. SKIN: No rashes, ecchymoses or lesions. Warm and dry. HEAD: Atraumatic. Normocephalic. No temporal or scalp tenderness. EYES: Pupils equal round and reactive. No injection or drainage. ENT: Nose without bleeding, purulent drainage or septal hematoma. Airway patent. NECK: Trachea midline. No lymphadenopathy. Supple, nontender, no meningeal signs. CARDIOVASCULAR: Regular rate and rhythm without murmurs, gallops, or rubs. No JVD. RESPIRATORY: Clear to auscultation. Breath sounds equal bilaterally. No wheezes , rales, or rhonchi. GASTROINTESTINAL: Abdomen soft, Tenderness on palpation over epigastric area, nondistended. No guarding. MUSCULOSKELETAL: Extremities without clubbing, cyanosis, or edema. Left lower ext chronic lymphedema noted. NEUROLOGICAL: Awake and alert. Cranial nerves II through XII intact. No focal neurological deficits. Normal speech. Results - Labs CBC & Chem 7: 06/09/18 11:30 06/09/18 11:30 Labs: Laboratory Results - last 24 hr 06/09/18 06/09/18 06/09/18 11:30 11:30 11:30 WBC 6.8 RBC 4.29 Hgb 13.2 POC Hgb (Calc) Hct 39.9 POC Hct MCV 93.0 MCH 30.6 MCHC 32.9 RDW 14.4 Plt Count 336 MPV 7.4 Neut % (Auto) 48.1 Lymph % (Auto) 34.7 [place] % (Auto) 9.3 H Eos % (Auto) 6.8 H Baso % (Auto) 1.1 Neut # (Auto) 3.3 Lymph # (Auto) 2.4 [place] # (Auto) 0.6 Eos # (Auto) 0.5 H Baso # (Auto) 0.1 WBC Differential . Differential Comment Auto diff final POC Sodium Sodium 143 POC Potassium Potassium 4.2 POC Chloride Chloride 110 H Carbon Dioxide 25.7 Anion Gap 7 POC BUN BUN 8 Creatinine 0.88 POC Creatinine Estimated GFR 62 L POC Glucose Random Glucose 184 H Calcium 8.3 L Total Bilirubin 0.4 AST 25 ALT 19 Alkaline Phosphatase 80 Total Creatine Kinase 56 Troponin I Less than 0.02 L Total Protein 7.1 Albumin 3.1 L Lipase 190 Cancelled 06/09/18 06/09/18 11:30 11:30 WBC RBC Hgb POC Hgb (Calc) 13.6 Hct POC Hct 40.0 MCV MCH MCHC RDW Plt Count MPV Neut % (Auto) Lymph % (Auto) [place] % (Auto) Eos % (Auto) Baso % (Auto) Neut # (Auto) Lymph # (Auto) [place] # (Auto) Eos # (Auto) Baso # (Auto) WBC Differential Differential Comment POC Sodium 144 Sodium POC Potassium 4.2 Potassium POC Chloride 105 Chloride Carbon Dioxide Anion Gap POC BUN 8 BUN Creatinine POC Creatinine 0.8 Estimated GFR POC Glucose 192 H Random Glucose Calcium Total Bilirubin AST ALT Alkaline Phosphatase Total Creatine Kinase Cancelled Troponin I Total Protein Albumin Lipase - Imaging Impressions Chest X-Ray 06/09/18 11:33 CONCLUSION: No acute cardiopulmonary process. Head CT 06/09/18 11:37 CONCLUSION: 1. No acute abnormality. 2. Focal encephalomalacia at the left caudate and anterior left basal ganglia. . Thoracic Aorta CT 06/09/18 11:38 CONCLUSION: 1. Atherosclerotic change seen throughout the arterial system. A dissection or aneurysm is not seen. 2. 5 mm pulmonary nodule in the left upper lobe and some subpleural density in the right upper lobe. These could be followed with a noncontrast CT examination in 6 months. 3. Hepatic steatosis. Caprini VTE Risk Assessment Caprini VTE Risk Assessment: No/Low Risk (score <= 1) Caprini Risk Assessment Model: Point Value = 1 Point Value = 2 Point Value = 3 Point Value = 5 Age 41-60 Minor surgery BMI > 25 kg/m2 Swollen legs Varicose veins or History of unexplained or recurrent spontaneous Oral contraceptives or hormone replacement Sepsis (< 1 month) Serious lung disease, including pneumonia (< 1 month) Abnormal pulmonary function Acute myocardial infarction Congestive heart failure (< 1 month) History of inflammatory bowel disease Medical patient at bed rest Age 61-74 Arthroscopic surgery Major open surgery (> 45 min) Laparoscopic surgery (> 45 min) Malignancy Confined to bed (> 72 hours) Immobilizing plaster cast Central venous access Age >= 75 History of VTE Family history of VTE Factor V Leiden Prothrombin [id number] Lupus anticoagulant Anticardiolipin antibodies Elevated serum homocysteine Heparin-induced thrombocytopenia Other congenital or acquired thrombophilia Stroke (< 1 month) Elective arthroplasty Hip, pelvis, or leg fracture Acute spinal cord injury (< 1 month) Prophylaxis Regimen: Total Risk Factor Score Risk Level Prophylaxis Regimen 0-1 Low Early ambulation 2 Moderate Order ONE of the following: *Sequential Compression Device (SCD) *Heparin 5000 units SQ BID 3-4 Higher Order ONE of the following medications: *Heparin 5000 units SQ TID *Enoxaparin/Lovenox 40 mg SQ daily (WT < 150 kg, CrCl > 30 mL/min) *Enoxaparin/Lovenox 30 mg SQ daily (WT < 150 kg, CrCl > 10-29 mL/min) *Enoxaparin/Lovenox 30 mg SQ BID (WT < 150 kg, CrCl > 30 mL/min) AND/OR *Sequential Compression Device (SCD) 5 or more Highest Order ONE of the following medications: *Heparin 5000 units SQ TID (Preferred with Epidurals) *Enoxaparin/Lovenox 40 mg SQ daily (WT < 150 kg, CrCl > 30 mL/min) *Enoxaparin/Lovenox 30 mg SQ daily (WT < 150 kg, CrCl > 10-29 mL/min) *Enoxaparin/Lovenox 30 mg SQ BID (WT < 150 kg, CrCl > 30 mL/min) AND *Sequential Compression Device (SCD) Assessment and Plan - Plan Ms. Wynn is a pleasant 78 year old female with a significant history of CAD, CABG s/p recent PCI/Stent (03/2018) who presents to the ED due to 2 day duration of epigastric pain, nausea/vomiting. Probable GERD Nausea/vomiting -Patient is on Aspirin and Ticagrelor due to recent PCI/Stent -We will continue Aspirin, Ticagrelor but start patient on PPI. -Protonix IV for now, consider switching to PO once nausea/vomiting resolves -Will keep patient on gentle hydration for now. -Liquid diet, advance as tolerated. -Outpatient GI Follow up maybe helpful with possible need for EGD. Severe CAD -Patient has a history of CABG -Cardiac cath in 03/2018 shows severe 3 vessel disease. -Will check troponins/EKG two more times. Cardiac etiology is unlikely. History of Breast cancer, Uterine cancer Chronic left leg lymphadenopathy Diabetes mellitus -Patient does not know her diabetic meds. -Will keep her on Sliding scale insulin. Goal BG 140-180. -Consider long acting insulin if needed. Full code. SCDs. Discharge: If patient's nausea/vomiting symptoms improve and able to tolerate diet, she can likely be discharged home.
[2018-06-09] MEDS ORDERED: Dextrose 50% in Water 50 ML Vial IV.PUSH PRN (14:54)
[2018-06-09] MEDS: Sod Chloride 0.9% Inj 1,000 ML IV.CONT SCH ×2 (15:56→19:29)
[2018-06-09] MEDS: Pantoprazole Inj 40 MG Vial IV.PUSH SCH (15:57)
--- NOTE | 2018-06-09 16:43 | ECG ---
Date Performed: 06/09/2018 Time Performed: 11:31:33 PTAGE: 78 years EKG: NORMAL Sinus rhythm LEFT ATRIAL ABNORMALITY ANTERIOR T-WAVE ABNORMALITY NONSPECIFIC ST-T WAVE ABNORMALITY, HOWEVER, PATRIZIA CUADRA IMPROVED FROM THE OLD TRACING PREVIOUS TRACING : 03/27/2018 21.32 DOCTOR: Juanito Paniagua Interpretating Date/Time 06/09/2018 16:41:48
[2018-06-09] MEDS: Insulin NovoLOG Aspart Correctional Sugar Inj SQ SCH ×2 (18:33→21:15)
[2018-06-10] MEDS: Sod Chloride 0.9% Inj 1,000 ML IV.CONT SCH (05:35)
[2018-06-10 05:37] LABS: Activated Partial Thrombo Time 25.3 sec (23.4-31.7); Prothrombin Time 10.5 sec (9.8-11.6)
[2018-06-10] MEDS: Pantoprazole Inj 40 MG Vial IV.PUSH SCH (06:45)
[2018-06-10 07:44] VITALS: BP 148/72; RESP 18; TEMP 96.7; O2SAT 95
--- NOTE | 2018-06-10 09:44 | P.PN ---
Subjective Interval history: Follow up for epigastric pain, nausea/vomiting. The patient is seen currently eating breakfast. She has no medical complaints. She states her epigastric pain has resolved. She denies any further nausea/vomiting. She is tolerating oral intake. She denies ever having any chest pain or shortness of breath. She feels ready to go home. Physical Exam Vital signs: Vital Signs 06/09/18 11:20 06/09/18 11:33 06/09/18 14:34 Temperature 98.0 F Pulse Rate 82 77 76 Respiratory Rate 20 20 20 Blood Pressure 149/71 H 137/70 171/74 H Pulse Oximetry 96 98 98 06/09/18 16:00 06/09/18 16:13 06/09/18 16:18 Temperature 98.6 F Pulse Rate 86 68 62 Respiratory Rate 17 18 18 Blood Pressure 169/85 H 146/66 H 146/66 H Pulse Oximetry 97 99 99 06/09/18 19:33 06/09/18 23:36 06/10/18 04:00 Temperature 97.3 F L 98.1 F 98.3 F Pulse Rate 67 78 73 Respiratory Rate 12 16 16 Blood Pressure 143/63 H 149/51 H 153/56 H Pulse Oximetry 96 95 96 06/10/18 07:41 Temperature 96.7 F L Pulse Rate 66 Respiratory Rate 18 Blood Pressure 148/72 H Pulse Oximetry 95 Intake & Output 06/09/18 06/10/18 06/10/18 18:59 06:59 18:59 Intake Total 1999 Balance 1999 Weight 77.27 kg Intake: IV 1999 NS Inj 1,000 ML @ 100 mls/hr IV 1999 .CONT .Q10H BRANDY Rx#:[id number] Other: # Voids 2 Weight On Admission 77.27 kg Narrative: GENERAL: Well-nourished, well-developed pleasant elderly female patient in [facility]. SKIN: Warm and dry. No rash. HEENT: Normocephalic. Atraumatic. Pupils equal and round. Mucous membranes pink and moist. CARDIOVASCULAR: Regular rate and rhythm. No murmur appreciated. RESPIRATORY: No accessory muscle use. Clear to auscultation. Breath sounds equal bilaterally. GASTROINTESTINAL: Abdomen soft, non-tender, nondistended. Normoactive bowel sounds x4. MUSCULOSKELETAL: No obvious deformities. Chronic nonpitting LLE lymphedema. RLE nonedematous. NEUROLOGICAL: Awake and alert. No obvious cranial nerve deficits. Moving all extremities spontaneously. Normal speech. PSYCHIATRIC: Appropriate mood and affect; insight and judgment normal. Results - Labs CBC & Chem 7: 06/09/18 11:30 06/09/18 11:30 Laboratory Results - last 24 hr 06/09/18 06/09/18 06/09/18 11:30 11:30 11:30 WBC 6.8 RBC 4.29 Hgb 13.2 POC Hgb (Calc) Hct 39.9 POC Hct MCV 93.0 MCH 30.6 MCHC 32.9 RDW 14.4 Plt Count 336 MPV 7.4 Neut % (Auto) 48.1 Lymph % (Auto) 34.7 [place] % (Auto) 9.3 H Eos % (Auto) 6.8 H Baso % (Auto) 1.1 Neut # (Auto) 3.3 Lymph # (Auto) 2.4 [place] # (Auto) 0.6 Eos # (Auto) 0.5 H Baso # (Auto) 0.1 WBC Differential . Differential Comment Auto diff final PT INR APTT POC Sodium Sodium 143 POC Potassium Potassium 4.2 POC Chloride Chloride 110 H Carbon Dioxide 25.7 Anion Gap 7 POC BUN BUN 8 Creatinine 0.88 POC Creatinine Estimated GFR 62 L POC Glucose Random Glucose 184 H Calcium 8.3 L Total Bilirubin 0.4 AST 25 ALT 19 Alkaline Phosphatase 80 Total Creatine Kinase 56 Troponin I Less than 0.02 L Total Protein 7.1 Albumin 3.1 L Lipase 190 Cancelled 06/09/18 06/09/18 06/09/18 11:30 11:30 16:00 WBC RBC Hgb POC Hgb (Calc) 13.6 Hct POC Hct 40.0 MCV MCH MCHC RDW Plt Count MPV Neut % (Auto) Lymph % (Auto) [place] % (Auto) Eos % (Auto) Baso % (Auto) Neut # (Auto) Lymph # (Auto) [place] # (Auto) Eos # (Auto) Baso # (Auto) WBC Differential Differential Comment PT INR APTT POC Sodium 144 Sodium POC Potassium 4.2 Potassium POC Chloride 105 Chloride Carbon Dioxide Anion Gap POC BUN 8 BUN Creatinine POC Creatinine 0.8 Estimated GFR POC Glucose 192 H Random Glucose Calcium Total Bilirubin AST ALT Alkaline Phosphatase Total Creatine Kinase Cancelled Troponin I Less than 0.02 L Total Protein Albumin Lipase 12/09/18 12/09/18 12/09/18 16:49 20:05 21:12 WBC RBC Hgb POC Hgb (Calc) Hct POC Hct MCV MCH MCHC RDW Plt Count MPV Neut % (Auto) Lymph % (Auto) [place] % (Auto) Eos % (Auto) Baso % (Auto) Neut # (Auto) Lymph # (Auto) [place] # (Auto) Eos # (Auto) Baso # (Auto) WBC Differential Differential Comment PT INR APTT POC Sodium Sodium POC Potassium Potassium POC Chloride Chloride Carbon Dioxide Anion Gap POC BUN BUN Creatinine POC Creatinine Estimated GFR POC Glucose 157 H 142 H Random Glucose Calcium Total Bilirubin AST ALT Alkaline Phosphatase Total Creatine Kinase Troponin I Less than 0.02 L Total Protein Albumin Lipase 06/10/18 06/10/18 04:57 08:48 WBC RBC Hgb POC Hgb (Calc) Hct POC Hct MCV MCH MCHC RDW Plt Count MPV Neut % (Auto) Lymph % (Auto) [place] % (Auto) Eos % (Auto) Baso % (Auto) Neut # (Auto) Lymph # (Auto) [place] # (Auto) Eos # (Auto) Baso # (Auto) WBC Differential Differential Comment PT 10.5 INR 1.0 APTT 25.3 POC Sodium Sodium POC Potassium Potassium POC Chloride Chloride Carbon Dioxide Anion Gap POC BUN BUN Creatinine POC Creatinine Estimated GFR POC Glucose 156 H Random Glucose Calcium Total Bilirubin AST ALT Alkaline Phosphatase Total Creatine Kinase Troponin I Total Protein Albumin Lipase - Imaging Impressions Chest X-Ray 06/09/18 11:33 CONCLUSION: No acute cardiopulmonary process. Head CT 06/09/18 11:37 CONCLUSION: 1. No acute abnormality. 2. Focal encephalomalacia at the left caudate and anterior left basal ganglia. . Thoracic Aorta CT 06/09/18 11:38 CONCLUSION: 1. Atherosclerotic change seen throughout the arterial system. A dissection or aneurysm is not seen. 2. 5 mm pulmonary nodule in the left upper lobe and some subpleural density in the right upper lobe. These could be followed with a noncontrast CT examination in 6 months. 3. Hepatic steatosis. Assessment and Plan - Plan Ms. Wynn is a pleasant 78 year old female with a significant history of CAD, CABG s/p recent PCI/Stent (03/2018) who presents to the ED due to 2 day duration of epigastric pain, nausea/vomiting. Probable Gastritis/GERD with Nausea/vomiting: acute -Patient is on Aspirin and Ticagrelor due to recent PCI/Stent -We will continue Aspirin, Ticagrelor but start patient on PPI. -Protonix IV for now -Given gentle IVF hydration -Liquid diet, advanced to regular -Symptoms resolved, stable for discharge, transitioned to po protonix Severe CAD: Patient has a history of CABG -Cardiac cath in 03/2018 shows severe 3 vessel disease, 2 stents placed. -Serial cardiac enzymes negative x3. Cardiac etiology is unlikely. -Continue home meds and outpatient f/up with cardiology History of Breast cancer, Uterine cancer Chronic left leg lymphadenopathy Diabetes mellitus -Patient does not know her diabetic meds. -Monitor Accuchecks and cover with Sliding scale insulin. Goal BG 140-180. -continue other home medications DNR. SCDs. Discharge Planning: Discharge patient to home with [facility] Condition on discharge: Stable Cardiac Diet as tolerated Ad [place] activity Rx written: protonix 40mg daily Follow-up with primary care physician
--- NOTE | 2018-06-10 09:46 | P.DCO ---
- Diagnosis (1) Acute epigastric pain Status: Acute (2) Nausea & vomiting Status: Acute (3) CAD (coronary artery disease) Status: Acute (4) Diabetes Status: Acute (5) Hyperlipidemia Status: Chronic (6) Hypertension Status: Chronic (7) GERD (gastroesophageal reflux disease) Status: Acute - Physical Therapy Order: Evaluate and treat, Improve ambulation, Strength and gait training - Home Health Nursing Order: Medical education, Diabetic education, CHF education, Nursing assessment with vital signs - Home Health Aide Order: To assist in: Bathing and personal care, medication aid and meal prep - Case Management Consult Case Management Consult-Home Health: Yes - Certification I have seen patient Jayleen Wynn on 06/10/18. My clinical findings support the need for the requested home health care services because: Limited mobility due to disease progression, Deconditioned with increased weakness, Limited ability to care for self I certify that my clinical findings support that this patient is homebound because: Unsteady gait/balance, Unsafe to leave home unassisted, Unable to use public transportation (3) CAD (coronary artery disease) Qualifiers: Coronary Disease-Associated Artery/Lesion type: unspecified vessel or lesion type [place] vs. transplanted heart: [place] heart Associated angina: angina presence unspecified Qualified Code(s): I25.10 - Atherosclerotic heart disease of [place] coronary artery without angina pectoris (5) Hyperlipidemia Qualifiers: Hyperlipidemia type: mixed hyperlipidemia Qualified Code(s): E78.2 - Mixed hyperlipidemia (6) Hypertension Qualifiers: Hypertension type: essential hypertension Qualified Code(s): I10 - Essential (primary) hypertension
[2018-06-10 10:30] VITALS: PULSE 92
[2018-06-10] MEDS: Insulin NovoLOG Aspart Correctional Sugar Inj SQ SCH (11:42)
--- NOTE | 2018-06-10 19:07 | ECG ---
Date Performed: 06/09/2018 Time Performed: 16:26:26 PTAGE: 78 years EKG: Sinus rhythm LOW QRS VOLTAGE IN EXTREMITY LEADS MODERATE T-WAVE ABNORMALITY, CONSIDER ANTERIOR ISCHEMIA ABNORMAL ECG PREVIOUS TRACING : 06/09/2018 11.31 Since the previous tracing, no significant change noted DOCTOR: Kalia Diaz Interpretating Date/Time 06/10/2018 19:05:51
--- NOTE | 2018-06-10 19:07 | ECG ---
Date Performed: 06/09/2018 Time Performed: 23:04:37 PTAGE: 78 years EKG: Sinus rhythm BORDERLINE RIGHT AXIS DEVIATION MODERATE T-WAVE ABNORMALITY, CONSIDER ANTEROLATERAL ISCHEMIA ABNORMA L ECG PREVIOUS TRACING : 06/09/2018 16.26 Since the previous tracing, no significant change noted DOCTOR: Kalia Diaz Interpretating Date/Time 06/10/2018 19:06:07
== END 2018-06-10 14:11 | disposition home health service (06) ==
LOC: NEPC 10:43 → NEDA 10:43 → NEPFCDU 16:14
PROVIDERS: ADMIT Hospitalist; ATTEND Hospitalist